=== PATIENT | male | born 1945 | race Caucasian/White ===

== ENCOUNTER 2021-10-02 16:11 | Outpatient (CLI) | payer BC, MEDICARE, SELFPAY ==
--- NOTE | ~2021-10-02 | US_ITS ---
EXAMINATION: US venous doppler LE RT DATE: 10/02/2021 16:46 INDICATION: Right lower limb pain. TECHNIQUE: Grayscale ultrasound images without and with compression and Doppler ultrasound images of the right lower extremity veins were obtained. COMPARISON: None. FINDINGS: The visualized portions of right common femoral vein, profunda (deep) femoral vein, femoral vein, pop liteal vein, peroneal veins, posterior tibial veins, and greater saphenous vein outflow are patent. T here is thrombus in a superficial vein in right posterior calf. IMPRESSION: 1. No deep venous thrombosis. 2. Thrombosis of a superficial vein in right posterior calf. Reviewed, dictated and finalized at location A. GE OPENER
== END 2021-10-02 16:12 | disposition home or self-care (01) ==
LOC: ANHIMG 16:19
PROVIDERS: PCP Family Medicine; Visit Provider Physician Assistant
DX: M79.661 Pain in right lower leg (principal); R60.9 Edema, unspecified; I82.811 Embolism and thrombosis of superficial veins of right lower extremity
CPT/HCPCS: 93971

== ENCOUNTER → 2022-12-08 12:24 | Outpatient (CLI) | payer BC, MEDICARE, SELFPAY ==
--- NOTE | ~2022-12-08 | XR_ITS ---
XR foot RT min 3V DATE: 12/08/2022 12:58 INDICATION: Right foot pain TECHNIQUE: 5 views COMPARISON: None FINDINGS: There is diffuse osteopenia. There is mild plantar and slight posterior calcaneal enthesopathy. There is mild polyarticular osteoarthritis including first metatarsophalangeal joint and some interph alangeal joints. No fracture or dislocation, periosteal reaction or bone destruction. There is anterior and posterior tibial artery and dorsalis pedis artery as well as some metatarsal ar alexander calcifications suggesting diabetes. IMPRESSION: Extensive arterial calcifications suggesting diabetes Osteopenia Polyarticular osteoarthritis Plantar and slight posterior calcaneal enthesopathy Reviewed, dictated and finalized at location B.
== END ==
PROVIDERS: PCP Family Medicine; Visit Provider Family Medicine
DX: M19.071 Primary osteoarthritis, right ankle and foot (principal); M85.871 Other specified disorders of bone density and structure, right ankle and foot; M77.31 Calcaneal spur, right foot
CPT/HCPCS: 73630

== ENCOUNTER → 2022-12-19 13:51 | Outpatient (CLI) | payer BC, MEDICARE, SELFPAY ==
--- NOTE | ~2022-12-19 | CT_ITS ---
EXAMINATION: CT abdomen pelvis w con DATE: 12/19/2022 15:01 INDICATION: Splenic disorder TECHNIQUE: Computed tomography (CT) of the abdomen and pelvis was performed with 100 CC Omnipaque 350 intravenous contrast. Automated exposure control and iterative reconstruction technique were employe d. Exam dose: 898.04 mGy-cm total exam DLP. COMPARISON: 05/13/2019 CT abdomen FINDINGS: The lung bases are clear. Normal heart size. No pericardial or pleural effusion. The liver, gallbladder, bile ducts, pancreas, pancreatic duct are normal. There is a 6 mm hypoattenuating lesion at the posterior aspect of the spleen, unchanged since 05/13/20 19. There are several stable splenules, not significant change since 05/13/2019. There is a 3.6 mm nonobstructing lower pole right renal calculus. There is a 2.5 mm nonobstructing lo wer pole left renal calculus. Another probable pinpoint nonobstructing left renal calculus may be pre sent. Diffuse small probable renal cysts are noted, too small to definitively characterize. Atherosclerotic calcification of the abdominal aorta, iliac and femoral arteries; no abdominal aortic aneurysm. No intraperitoneal or retroperitoneal or pelvic mass lesion or adenopathy or ascites. There is a suprapubic Akers catheter. The urinary bladder is evacuated. No evidence of appendicitis. No bowel obstruction, bowel wall thickening, pneumatosis or intraperiton eal free air. Prominent fat-containing abdominal hernia measuring up to 4.1 cm AP and transverse dimension. Bilateral fat-containing inguinal hernias. Diffuse idiopathic skeletal hyperostosis of the thoracic spine. Degenerative changes of the lumbar sp ine including prominent degenerative disc disease in the mid and lower lumbar area and prominent dege nerative changes of the apophyseal joints, with associated grade 1 anterolisthesis at L4-5. IMPRESSION: Splenules and stable approximately 5 mm splenic hypoattenuating lesion, not significantl y changed since 05/13/2019 Mild bilateral nonobstructive nephrolithiasis Occasional small probable cysts, too small to definitively characterize 4.1 cm fat-containing umbilical hernia Reviewed, dictated and finalized at Location A. Reviewed, dictated and finalized at location A. IMPRESSION: Splenules and stable approximately 5 mm splenic hypoattenuating le mac, not significantly changed since 05/13/2019 Mild bilateral nonobstructive nephrolithiasis Occasional small probable cysts, too small to definitively characterize 4.1 cm fat-containing umbilical hernia
[2022-12-19 14:58] LABS: Estimated Glomerular Filt Rate > 60
== END ==
PROVIDERS: PCP Family Medicine; Visit Provider Family Medicine
DX: D73.89 Other diseases of spleen (principal); N20.0 Calculus of kidney; K42.9 Umbilical hernia without obstruction or gangrene
CPT/HCPCS: 74177; Q9967

== ENCOUNTER → 2023-03-11 11:31 | Outpatient (CLI) | payer BC, MEDICARE, SELFPAY ==
--- NOTE | ~2023-03-11 | XR_ITS ---
Lumbosacral Spine: AP, oblique, and lateral views Clinical History: Pain Findings: The normal lordotic curve is maintained. 9 mm anterolisthesis of L4 over L5 is present.. Pr obable 7 mm anterolisthesis of L5 over S1. There is degenerative disc narrowing at 3-0, L3-L4, L4-L5, L5-S1. There is advanced facet arthropathy from L3 through S1. The sacroiliac joints are normally ou tlined. Impression: 9 mm anterolisthesis of L4 over L5. 7 mm anterolisthesis of L5 over S1. Moderate to advanced degenerative spondylosis from L3 through S1. Reviewed, dictated and finalized at location M. Impression: 9 mm anterolisthesis of L4 over L5. 7 mm anterolisthesis of L5 over S1. Moderate to advanced degenerative spondylosis from L3 through S1.
== END ==
PROVIDERS: PCP Family Medicine; Visit Provider Physician Assistant
DX: M47.896 Other spondylosis, lumbar region (principal)
CPT/HCPCS: 72110

== ENCOUNTER 2023-04-05 17:59 | Emergency (ER) | payer BC, MEDICARE, SELFPAY ==
--- NOTE | ~2023-04-05 | XR_ITS ---
XR_CERV2-3V_CR DATE: 04/05/2023 18:48 INDICATION: Left neck pain TECHNIQUE: AP, open-mouth, lateral views COMPARISON: None FINDINGS: C7 is not adequately demonstrated on the lateral view, resulting in an incomplete examinati on. Swimmer's view with demonstration of C7 and possibly a more penetrated lateral standard views are recommended. There is minimal anterolisthesis at C3-4, C4-5 and to a greater extent C5-6. No fracture or dislocation is evident. No prevertebral soft tissue swelling. Cervical interspaces appear well preserved. There is mild levoscoliosis of the cervical and upper thoracic spine. Diffuse idiopathic skeletal hyp erostosis of the thoracic spine. Osteopenia. IMPRESSION: Incomplete examination with inadequate demonstration of C7 on lateral view Minimal anterolisthesis at C3-4, C4-5 and to a greater extent C5-6; no fracture is evident Reviewed, dictated and finalized at Location A. Reviewed, dictated and finalized at location A. IMPRESSION: Incomplete examination with inadequate demonstration of C7 on later al view Minimal anterolisthesis at C3-4, C4-5 and to a greater extent C5-6; no fracture is evident
--- NOTE | ~2023-04-05 | XR_ITS ---
XR shoulder LT min 2V DATE: 04/05/2023 18:48 INDICATION: Left shoulder pain. No injury. TECHNIQUE: 4 views COMPARISON: None FINDINGS: Normal alignment at the acromioclavicular and glenohumeral joints. There is evidence of chr onic rotator cuff atrophy. There is mild spurring at the acromioclavicular joint. There is mild glenohumeral osteoarthritis. No fracture or dislocation, periosteal reaction or bone destruction is detected. Degenerative changes of the cervical spine Degenerative disc disease and degenerative change at the apophyseal joints. Dextroscoliosis and diffuse idiopathic skeletal hyperostosis of the thoracic spine. Osteopenia. IMPRESSION: Degenerative changes at the acromioclavicular and glenohumeral joints Left rotator cuff atrophy Diffuse idiopathic skeletal hyperostosis and extra scoliosis of the thoracic spine. Osteopenia Reviewed, dictated and finalized at location A. IMPRESSION: Degenerative changes at the acromioclavicular and glenohumeral join ts Left rotator cuff atrophy Diffuse idiopathic skeletal hyperostosis and extra scoliosis of the thoracic sp ine. Osteopenia
[2023-04-05 18:10] VITALS: BP 118/60; PULSE 73; RESP 18; TEMP 36.6; O2SAT 98
--- NOTE | 2023-04-05 18:27 | ED.EXTPRO ---
HPI - Extremity Problem General Chief complaint: Extremity Problem,Nontraumatic Stated complaint: Left Shoulder Pain Time Seen by Provider: 04/05/23 18:27 Source: patient Mode of arrival: ambulatory Limitations: no limitations History of Present Illness HPI Narrative: 77-year-old male presents with complaint of neck, left shoulder pain for approximately 5 days. Reports pain is to left side of neck and radiates down into left shoulder and left upper back. Denies injury. Reports history of torn rotator cuff that was not surgically repaired. has been getting cortisone injections with orthopedics which has been helping his pain. States his last injection was March 25. Reports that is not helping this time. States he has not slept the last 2 nights due to pain. Taking Aleve with no relief of pain. All systems reviewed and negative except as noted above. Related Data Home Medications Medication Instructions Recorded Confirmed aspirin 81 mg tablet,delayed 81 mg PO DAILY 09/25/20 03/11/23 release (Adult Aspirin Regimen) calcium carbonate 600 mg-vitamin cap PO 09/25/20 03/11/23 D3 12.5 mcg (500 unit) capsule (Calcium 600 with Vitamin D3) albuterol sulfate 90 mcg/actuation inhalation 04/05/23 aerosol inhaler Allergies Allergy/AdvReac Type Severity Reaction Status Date / Time No Known Allergies Allergy Verified 03/11/23 11:02 Review of Systems Review of Systems: CONSTITUTIONAL: Denies fever, chills, or sweats. EYES: Denies visual changes, redness, or discharge. ENT: Denies rhinorrhea, congestion, sore throat, or otalgia. CARDIOVASCULAR: Denies chest pain, palpitations, or edema. RESPIRATORY: Denies cough or dyspnea. GASTROINTESTINAL: Denies abdominal pain, nausea, vomiting, or diarrhea. GENITOURINARY: Denies dysuria or hematuria. SKIN: Denies rash or itching. MUSCULOSKELETAL: Denies back pain or myalgia. Reports pain to left side of neck, left shoulder. NEUROLOGIC: Denies headache, numbness, or weakness. PSYCHIATRIC: Denies anxiety or depression. All other systems reviewed are negative, except as documented in HPI. [facility] Past Medical History Medical History (Updated 04/05/23 @ 19:30 by Lizbet Ramirez NP) Basal cell carcinoma of skin Cardiomyopathy Constipation FH: radiation therapy HLD (hyperlipidemia) Hypertension Obesity (BMI 30-39.9) Prediabetes Prostate cancer Squamous cell skin cancer Umbilical hernia Surgical History Surgical History (Updated 03/11/23 @ 11:14 by Salina Brody PA-C) History of lumbar surgery History of prostate surgery History of total left knee replacement History of total right knee replacement (TKR) Family History Family History (Reviewed 03/11/23 @ 11:03 by Cassie Otero [facility]) Father Diabetes mellitus Malignant neoplasm of prostate Mother Diabetes mellitus Sibling Diabetes mellitus Social History Social History (Reviewed 03/11/23 @ 11:03 by Cassie Otero [facility]) Smoking packs per day: 0.5 Smoking cigarettes per day: 10.0 Years smoked: 10 Smoking pack-years: 5.00 Smoking status: Former smoker Tobacco type: cigarettes Second hand tobacco smoke exposure: Yes Smoking end date: 09/14/89 Alcohol intake: never Substance use: never Substance use type: does not use Lack of Transportation: No Lack of Food: Never True Current Housing: I Have Housing Concerned About Future Housing: No Difficulty Paying Gas/Electric Bills: No Difficulty Paying for Meds: No Currently Unemployed: No Education: High School Diploma/GED Difficulty w/ Childcare or Family Care: No Living arrangements: with family Occupation/Education: retired Gender identity (if verbalized by the patient): Male Sexual Orientation (if Verbalized by the Patient): Straight or Heterosexual Spiritual care concerns: No Agree to blood products: Yes Comments At time of signature, agree with nursing past medical, s
== END 2023-04-05 19:32 | disposition home or self-care (01) ==
PROVIDERS: Emergency Provider Nurse Practitioner Family; PCP Family Medicine
DX: M25.512 Pain in left shoulder (principal); S16.1XXA Strain of muscle, fascia and tendon at neck level, initial encounter; X58.XXXA Exposure to other specified factors, initial encounter; I42.9 Cardiomyopathy, unspecified; E78.5 Hyperlipidemia, unspecified; I10 Essential (primary) hypertension; E66.9 Obesity, unspecified; Z68.29 Body mass index [BMI] 29.0-29.9, adult; R73.03 Prediabetes; Z85.46 Personal history of malignant neoplasm of prostate; Z85.828 Personal history of other malignant neoplasm of skin; Z96.653 Presence of artificial knee joint, bilateral; Z87.891 Personal history of nicotine dependence; Z79.82 Long term (current) use of aspirin
CPT/HCPCS: 72040; 73030; 99213; G0463

== ENCOUNTER 2024-12-05 14:42 | Outpatient (CLI) | payer BC, MEDICARE, SELFPAY ==
--- NOTE | ~2024-12-05 | XR_ITS ---
XR chest 2V Ordering provider: Sultana Shook MD History: 79 years Male with . R07.9 - Chest pain, unspecified . Comparison: April 13, 2017 FINDINGS: MEDIASTINUM: The cardiac silhouette is not enlarged. LUNGS: No effusions or pneumothorax. Opacification in both lung bases more on the left side suggestiv e of atelectasis versus pneumonia. OTHER: No free air under the diaphragm. Degenerative changes of the spine. IMPRESSION: Bibasilar atelectasis versus pneumonia. Reviewed, dictated and finalized at location A.
--- NOTE | 2024-12-05 15:00 | ECG_ITS ---
Test Date: 2024-12-05 15:10:15 Measurements Intervals [place] Rate: 58 P: 62 MI: 187 QRS: 41 QRSD: 96 T: 61 QT: 418 QTc: 413 Interpretive Statements SINUS BRADYCARDIA WITH OCCASIONAL SUPRAVENTRICULAR PREMATURE COMPLEXES No previous ECG available for comparison Electronically Signed On 12-06-2024 15:39:33 CDT by Hiarm Elizabeth M.D.
--- OUTSIDE RECORDS SUMMARY | 2024-12-05 17:02 | XMS_ITS | Encounter Summary ---
Author Organization [facility] Address [address] [place] [address] Care Team Providers Care Card Filer Name Role Phone Leonidas Doran MD Primary Care Provider Encounter Details Date Type Department Care Team (Late st Contact Info) Description 08/22/2020 Lab Requisition [facility] DermPath Lab [address] [facility] [place] [address] Tessa Elena MD [address] [facility] [address] [place] [address] Social History Tobacco Use Types Packs/Day Years Used Date Smoking Tobacco: Former Smokeless Tobacco: Never Alcohol Use Standard Drinks/Week Comments Yes 0 (1 standard drink = 0.6 oz pur e alcohol) Sex and Gender Information Value Date Recorded Sex Assigned at Not on file Gender Identity Not on file Sexual Orientation Not on file documented as of this encounter Plan of Treatment Not on file documented as of this encounter Procedures Procedure Name Priority Date/Time Associated Diagnosis Comments DERMATOPATHOLOGY Routine 08/21/2020 12:0 0 AM WELFARE SUPERVISOR documented in this encounter Results * DERMATOPATHOLOGY (08/21/2020 12:00 AM WELFARE SUPERVISOR) Case Report Dermatopathology Report Case: [id number] Authorizing Provider: Tessa Elena MD Collected: 08/21/2020 12:00 AM Ordering Location: [facility] Lab Received: 08/22/2020 06:49 AM Pathologist: Parrish Collins MD Specimen: Skin, left conchal 0 3:37 PM WELFARE SUPERVISOR DERMATOPATHOLOGY LABORATORY Final Diagnosis Specimen A. SKIN, left conchal: SQUAMOUS CELL CARCINOMA, WELL DIFFERENTIATED (C44.229) (see microscopic description) 0 3:37 PM WELFARE SUPERVISOR DERMATOPATHOLOGY LABORATORY Clinical History R/O BCC, irritated. 0 3:37 PM WELFARE SUPERVISOR DERMATOPATHOLOGY LABORATORY Gross Description Specimen A: Received is one formalin filled container labeled with the patient's name and designated left conchal. The specimen consists of a shave measuring [id number]. Jar 0. 0 3:37 PM WELFARE SUPERVISOR DERMATOPATHOLOGY LABORATORY Microscopic Description Specimen A. SKIN, left conchal: Arising in the epidermis and extending into the dermis there are irregularly shaped aggregates of keratinocytes showing evidence of premature cornification. Additional deeper sections were obtained and reviewed. 0 3:37 PM WELFARE SUPERVISOR DERMATOPATHOLOGY LABORATORY Disclaimer An external and internal positive and negative controls are appropriate for the histochemical, immunohistochemical and immunofluorescence stain(s) in this case (if any), except where stated explicitly. The performance characteristics of the stain(s) cited in this report were developed and its performance characteristic determined by the Dermatopathology Laboratory at [facility], directed by Dr. Radha Collins. These tests need not be, and therefore are not, approved by the [place] Food and Drug Administration. The tests are used for clinical purposes. Billing Codes Specimen Charges Stain Charges 17320 1 0 3:37 PM WELFARE SUPERVISOR DERMATOPATHOLOGY LABORATORY Embedded Images 0 3:37 PM WELFARE SUPERVISOR DERMATOPATHOLOGY LABORATORY Pathology/Cytolog y TISSUE SPECIMEN FROM SKIN / Unknown 08/21/2020 08/22/2020 6:49 AM WELFARE SUPERVISOR Tessa Elena MD LAB - PATHOLOGY/CYT OLOGY ORDERABLES DERMATOPATHOLOGY LABORATORY [facility] - Department of Dermatology [facility] Medicine [address] [place] [address], [address] [place] [address], [facility] [phone] documented in this encounter Visit Diagnoses Not on filedocumented in this encounter Care Teams Card Filer Relationship Specialty Start Date End Date Leonidas Doran MD [address] [place] [address] PCP - General 10/20/11 documented as of this encounter
--- OUTSIDE RECORDS SUMMARY | 2024-12-05 17:02 | XMS_ITS | Clinical Summary ---
Author Organization [facility] Address [address] [place] [address] Care Team Providers Care Paper Plate Machine Tender Name Role Phone Sultana Shook MD Primary Care Provider [phone] Social History Tobacco Use Types Packs/Day Years Used Date Smoking Tobacco: Never Assessed Sex and Gender Information Value Date Recorded Sex Assigned at Not on file Legal Sex Male 7:43 PM CDT Gender Identity Not on file Sexual Orientation Not on file Plan of Treatment Health Maintenance Due Date Last Done Comments DTaP, Tdap and Td Vaccines ( 1 - Tdap) 1962 Zoster Vaccines (1 of 2) 1993 Annual Medicare Wellness Visit 2008 Pneumococcal Vaccine: 65+ Ye ars (1 of 1 - PCV) 2008 RSV Immunization or 60+ Years (1 - 1-dose 75+ series) 2018 COVID-19 Vaccine (2023-2 5 season) 2024 Influenza Adult (#1) 2024 Meningococcal B Vaccine Aged Out No l onger eligible based on patient's age to complete this topic Meningococcal Vaccine Aged Out No ann mehreen eligible based on patient's age to complete this topic RSV Immunizations Under 20 Months Aged Out No longer eligible based on patient's age to complete this topic Insurance MEDICARE [facility] Care Teams Paper Plate Machine Tender Relationship Specialty Start Date End Date Sultana Shook MD [address] [place] [address] PCP - General FAMILY PRACTICE 04/21/23
--- OUTSIDE RECORDS SUMMARY | 2024-12-05 17:02 | XMS_ITS | Clinical Summary ---
Author Organization [facility] Address [address] [facility] [place] [address] Care Team Providers Care Integrated Circuits Inspector Name Role Phone Leonidas Doran MD Primary Care Provider Source Comments [facility],non-owned Affiliates and Associated Physician Practices is amultiple site organization consisting of ambulatory clinics and hospital sitesin [place], [place], [place] and [place]. This disclosure is being madepursuant to the Care Everywhere program and may not contain all information available regarding this patient. Last updated 18.[facility] Active Problems Problem Noted Date Diagnosed Date Personal history of other malignant neoplasm of skin 12/05/2011 Family History Medical History Relation Name Comments Diabetes Father Heart Failure Father Diabetes Mother Heart Failure Mother Hypertension Mother Relation Name Status Comments Father Mother Social History Tobacco Use Types Packs/Day Years Used Date Smoking Tobacco: Former Smokeless Tobacco: Never Alcohol Use Standard Drinks/Week Comments Yes 0 (1 standard drink = 0.6 oz pur e alcohol) Sex and Gender Information Value Date Recorded Sex Assigned at Not on file Gender Identity Not on file Sexual Orientation Not on file Last Filed Vital Signs Vital Sign Reading Time Taken Comments Blood Pressure 111/67 03/25/2016 1:54 PM CDT Pulse 70 03/25/2016 1:54 PM CDT Temperature - - Respiratory Rate - - Oxygen Saturation 67% 03/25/2016 1:54 PM CDT Inhaled Oxygen Concentration - - Weight 104.3 kg (230 lb) 03/25/2016 1:25 PM CDT Height 182.9 cm (6') 03/25/2016 1:25 PM CDT Body Mass Index 31.19 03/25/2016 1:25 PM CDT Plan of Treatment Health Maintenance Due Date Last Done Comments MEDICARE AWV 12 MONTHS 1945 DTAP/TDAP/TD VACCINES (1 - Tdap) 1962 PNEUMOCOCCAL VACCINE 50+ (1 of 1 - PCV) 1993 ZOSTER VACCINE (1 of 2) 1993 Respiratory Syncytial Virus (RSV) Vaccine Pt: or over 60 yrs (1 - 1-dose 75+ series) 2018 COVID-19 VACCINE (1 - 2023-2 5 season) 2024 INFLUENZA VACCINE (#1) 2024 DEPRESSION SCREENING 09/14/2024 HEPATITIS B VACCINE Aged Out No longe r eligible based on patient's age to complete this topic HIB VACCINE Aged Out No longer eligi ble based on patient's age to complete this topic HPV VACCINE Aged Out No longer eligi ble based on patient's age to complete this topic MENINGOCOCCAL (Group B) VACC INE SHARED DECISION-MAKING Aged Out No longer eligibl e based on patient's age to complete this topic MENINGOCOCCAL GROUPS A/C/Y/W VACCINE Aged Out No longer eligible b ased on patient's age to complete this topic Care Teams Integrated Circuits Inspector Relationship Specialty Start Date End Date Leonidas Doran MD [address] [place] [id number] PCP - General 10/20/11
--- OUTSIDE RECORDS SUMMARY | 2024-12-05 17:02 | XMS_ITS | Encounter Summary ---
Author Organization [facility] Address [address] [place] [address] Care Team Providers Care Mat Gauger Name Role Phone Leonidas Doran MD Primary Care Provider Encounter Details Date Type Department Care Team (Late st Contact Info) Description 11/19/2023 Lab Requisition [facility] - DermPath Lab [address] [facility] [place] [address] Tessa Elena MD [address] [facility] [address] [place] [address] Social History Tobacco Use Types Packs/Day Years [...] Priority Date/Time Associated Diagnosis Comments DERMATOPATHOLOGY Routine 11/19/2023 10:5 6 AM SKID WRAPPER documented in this encounter Results * DERMATOPATHOLOGY (11/19/2023 10:56 AM SKID WRAPPER) Case Report Dermatopathology Report Case: [id number] Authorizing Provider: Tessa Elena MD Collected: 11/19/2023 10:56 AM Ordering Location: [facility] - Received: 11/20/2023 01:05 PM DermPath Lab Pathologist: Freida Leach MD Specimens: A) - Skin, left samaritan B) - Skin, right ant scalp 1:19 PM [facility] DERMATOPATHOLOGY LABORATORY Final Diagnosis Specimen A. SKIN, left samaritan: SQUAMOUS CELL CARCINOMA IN SITU, PRESENT AT THE BASE OF THE SPECIMEN (D04.39) (see microscopic description and comment) Specimen B. SKIN, right ant scalp: SQUAMOUS CELL CARCINOMA, WELL DIFFERENTIATED (C44.42) 1:19 PM [facility] DERMATOPATHOLOGY LABORATORY Clinical History A-B: Growing R/O SCC 1:19 PM [facility] DERMATOPATHOLOGY LABORATORY Gross Description Specimen A: Received is one formalin filled container labeled with the patient's name and designated left samaritan. The specimen consists of a two pieces shave biopsy measuring 5x5x1, 5x5x1 mm. Jar 0. Specimen B: Received is one formalin filled container labeled with the patient's name and designated right ant scalp. The specimen consists of a shave biopsy measuring 5x5x2 mm. Jar 0. 1:19 PM [facility] DERMATOPATHOLOGY LABORATORY Microscopic Description Specimen A. SKIN, left samaritan: The epidermis shows parakeratosis, full thickness disorderly maturation of keratinocytes, mitoses at different levels, and dyskeratotic cells. The lesion extends to the base of the biopsy. COMMENT: An invasive squamous cell carcinoma cannot be ruled out. Specimen B. SKIN, right ant scalp: Arising in the epidermis and extending into the dermis there are irregularly shaped aggregates of keratinocytes showing evidence of premature cornification. 1:19 PM [facility] DERMATOPATHOLOGY LABORATORY Disclaimer An external and internal positive and negative controls are appropriate for the histochemical, immunohistochemical and immunofluorescence stain(s) in this case (if any), except where stated explicitly. The performance characteristics of the stain(s) cited in this report were developed and its performance characteristic determined by the Dermatopathology Laboratory at [facility], directed by Dr. Radha Collins. These tests need not be, and therefore are not, approved by the [place] Food and Drug Administration. The tests are used for clinical purposes. Billing Codes Specimen Charges Stain Charges 05906 58067 1 1 1:19 PM T DERMATOPATHOLOGY LABORATORY Embedded Images 1:19 PM CDT DERMATOPATHOLOGY LABORATORY Pathology/Cytology TISSUE SPECIMEN FROM SKIN / Unknown 11/19/2023 10:56 AM SKID WRAPPER 11/20/2023 1:05 PM SKID WRAPPER Miscellaneous samples (specimen) TISSUE SPECIMEN FROM SKIN / Unknown 11/19/2023 10:56 AM SKID WRAPPER 11/20/2023 1:05 PM SKID WRAPPER Tessa Elena MD LAB - PATHOLOGY/CYT OLOGY ORDERABLES DERMATOPATHOLOGY LABORATORY [facility] - Department of Dermatology [facility] [address] [place] [address], [address] [phone] documented in this encounter Visit Diagnoses Not on filedocumented in this encounter Care Teams Mat Gauger Relationship Specialty Start Date End Date Leonidas Doran MD [address] [place] [address] PCP - General 10/20/11 documented as of this encounter
== END 2024-12-05 14:43 | disposition home or self-care (01) ==
PROVIDERS: PCP Family Medicine; Visit Provider Family Medicine
DX: R07.9 Chest pain, unspecified (principal); R06.00 Dyspnea, unspecified; R91.8 Other nonspecific abnormal finding of lung field
CPT/HCPCS: 71046; 93005

== ENCOUNTER 2024-12-21 15:51 | Inpatient (IN) | payer BC, MEDICARE, SELFPAY ==
[2024-12-21] VITALS (8 sets, daily range): BP systolic 114–130; BP diastolic 51–62; PULSE 63–75; RESP 14–19; TEMP 36.4–36.8; O2SAT 94–100
--- NOTE | ~2024-12-21 | US_ITS ---
EXAMINATION: US soft tissue head and neck DATE: 12/22/2024 14:59 INDICATION: Large right thyroid nodule TECHNIQUE: Multiple ultrasound images of the thyroid were obtained. COMPARISON: Ultrasound dated 07/27/[address] dated 12/31/2024 FINDINGS: The right thyroid lobe measures 7.4 x 3.6 x 3.1 cm. The left thyroid lobe measures 5.5 x 2.1 x 2.9 c m. 8 mm benign cystic TI RADS 1 nodule in the right thyroid lobe. 4.5 x 3.3 x 2.8 solid hypoechoic n odule which is wider than tall with smooth margins and without echogenic foci in the right thyroid lo be. (TI-RADS 4, moderately suspicious , FNA if >=1.5 cm, annual followup is >=1 cm). On the cine imag ing this appears to be comprised of 2 separate nodules are more clearly delineated on the prior study at which time they measured 4.8 x 3.1 x 2.7 cm. Additional 2.3 cm solid isoechoic nodule which is wi william than tall with ill-defined margins in the left thyroid lobe. (TI-RADS 3, mildly suspicious , FNA if >=2.5 cm, annual followup is >=1.5 cm). IMPRESSION: 1. Multinodular goiter. No significant interval change in a 4.5 cm TI-RADS 4 mass at the right thyroi d lobe which when correlated with prior imaging appears to be comprised of 2 separate nodules and whi ch is unchanged. Given patient's age and over 12 years of stability, biopsy is likely unnecessary. Reviewed, dictated and finalized at location B. IMPRESSION: 1. Multinodular goiter. No significant interval change in a 4.5 cm TI-RADS 4 ma ss at the right thyroid lobe which when correlated with prior imaging appears t o be comprised of 2 separate nodules and which is unchanged. Given patient's ag e and over 12 years of stability, biopsy is likely unnecessary.
--- NOTE | ~2024-12-21 | XR_ITS ---
XR chest 2V Ordering provider: Teresa Zaidi MD History: 79 years Male with . shortness of breath . Comparison: December 05, 2024 FINDINGS: MEDIASTINUM: The cardiac silhouette is not enlarged. LUNGS: No infiltrates, effusions or pneumothorax. OTHER: No free air under the diaphragm. Degenerative changes of the spine. IMPRESSION: No acute cardiopulmonary pathology. Reviewed, dictated and finalized at location A.
--- NOTE | ~2024-12-21 | CT_ITS ---
CTA chest PE protocol Ordering provider: Rosana Toro PA-C History: 79 years Male with . chest tightness, radiates to back . Comparison: July 23 2012 Technique: CT angiogram chest was performed following timed intravenous injection of contrast. Thin s lice axial images and reformatted coronal images were obtained. Three dimensional reformatted images of the chest were also obtained using a [employer] workstation. . Automated exposure control and iterati ve reconstruction technique were employed. The dose-length product was 715.13 mGy-cm. 100 mL Omnipaqu e 350 was given IV. Findings: PULMONARY ARTERIES: No pulmonary embolus. VISUALIZED THORACIC INLET: Large nodule in the right lobe of the thyroid. Ultrasound evaluation advis ed. MEDIASTINUM: Aorta/coronary arteries: Mild atheromatous disease. Heart/other: The heart is not enlarged. Lymph nodes: No mediastinal or hilar adenopathy. LUNGS: No pulmonary nodules or masses. No infiltrates or effusions. No pneumothorax. VISUALIZED UPPER ABDOMEN: the visualized upper abdomen is normal. MUSCULOSKELETAL: Soft tissues: The superficial soft tissues are normal. Bones: Age appropriate degenerative changes of the spine. Bifid spinous process of C7. IMPRESSION: 1. No pulmonary embolism. 2. No acute cardiopulmonary. 3. Right thyroid nodule. Ultrasound evaluation advised. Reviewed, dictated and finalized at location A.
--- NOTE | ~2024-12-21 | NM_ITS ---
EXAMINATION: NM taz stress w perfusion DATE: 12/23/2024 10:10 INDICATION: Chest pain TECHNIQUE: Rest images were obtained following intravenous administration of 10.6 mCi Tc99m tetrofosm in (Myoview). The patient was infused intravenously with Lexiscan (Regadenoson). Then, 34.4 mCi Tc99m tetrofosmin (Myoview) was administered intravenously, and stress images were obtained. Data was kyle nstructed into short axis and horizontal and vertical long axis SPECT images. Gated SPECT images were also obtained. COMPARISON: None. FINDINGS: There is no definite reversible or fixed perfusion abnormality to suggest ischemia or infar ction. There is normal left ventricular chamber size, wall motion and ejection fraction. Left ventr icular ejection fraction measures 70%. IMPRESSION: 1. Normal myocardial perfusion at rest and during stress. 2. Left ventricular ejection fraction measuring 70%. Reviewed, dictated and finalized at location B.
--- NOTE | 2024-12-21 16:18 | ECG_ITS ---
Test Date: 2024-12-21 16:28:28 Measurements Intervals Jolon Rate: 71 P: 7 MI: 166 QRS: -13 QRSD: 95 T: 50 QT: 397 QTc: 432 Interpretive Statements SINUS RHYTHM WITH OCCASIONAL VENTRICULAR PREMATURE COMPLEXES LOW QRS VOLTAGE IN PRECORDIAL LEADS BORDERLINE ECG Compared to ECG 12/05/2024 15:10:15 HEART RATE HAS INCREASED Electronically Signed On 12-21-2024 18:12:29 CDT by Tam Romero D.O.
[2024-12-21 16:27] LABS: Basophils Absolute Auto 0.1 K/mm3 (0.0-0.1); Basophils Percent Auto 0.8 % (0.2-1.2); Eosinophils Absolute Auto 0.2 K/mm3 (0-0.3); Eosinophils Percent Auto 1.3 % (0-4.4); Hematocrit 40.1 % (42.0-52.0); Hemoglobin 13.2 g/dL (14.0-18.0); Immature Granulocyte Absolute 0.16 K/mm3 (0.00-0.031); Immature Granulocyte Percent A 1.4 % (0-0.5); Lymphocytes Percent Auto 24.5 % (18.3-44.2); Mean Corpuscular HGB Conc 32.9 g/dl (32-36); Mean Corpuscular Hemoglobin 28.8 pg (26-34); Mean Corpuscular Volume 87.6 fl (80-100); Monocytes Percent Auto 8.6 % (2.6-8.5); Neutrophils Absolute Auto 7.5 K/mm3 (1.3-6.7); Neutrophils Percent Auto 63.4 % (45.5-73.1); Platelet Count Result 274 k/mm3 (150-375); Red Blood Count 4.58 M/mm3 (4.6-6.20); Red Cell Distribution Width 14.3 % (11.5-14.5); White Blood Count 11.8 K/mm3 (4.5-10.0)
[2024-12-21 16:38] LABS: Alanine Aminotransferase 20 U/L (6-50); Albumin Level 4.3 g/dL (3.5-5.1); Alkaline Phosphatase 47 U/L (38-126); Anion Gap 11 mmol/L (4-12); Aspartate Amino Transferase 30 U/L (17-59); Bilirubin,Total 0.6 mg/dL (0.2-1.3); Blood Urea Nitrogen 52 mg/dL (9-20); Calcium 9.8 mg/dL (8.4-10.2); Carbon Dioxide 19 mmol/L (22-30); Chloride 103 mmol/L (98-107); Estimated CRCL calculation 40 ml/min; Estimated Glomerular Filt Rate 49; Glucose 92 mg/dL (65-110); Potassium 4.9 mmol/L (3.4-5.0); Sodium 133 mmol/L (137-145)
--- OUTSIDE RECORDS SUMMARY | 2024-12-21 17:00 | XMS_ITS | Encounter Summary ---
Author Organization [facility] Address [address] [place] [address] Care Team Providers Care Knitting Machine Operator Name Role Phone Leonidas Doran MD Primary Care Provider Encounter Details Date Type Department Care Team (Late st Contact Info) Description 08/22/2020 Lab Requisition [facility] [address], [place] [address] Tessa Elena MD [address] [facility] [address] [place] [address] Social History Tobacco Use Types Packs/Day Years [...] Comments DERMATOPATHOLOGY Routine 08/21/2020 12:0 0 AM GREEN MARKETING ANALYST documented in this encounter Results * DERMATOPATHOLOGY (08/21/2020 12:00 AM GREEN MARKETING ANALYST) Case Report Dermatopathology Report Case: [id number] Authorizing Provider: Tessa Elena MD Collected: 08/21/2020 12:00 AM Ordering Location: [facility] Received: 08/22/2020 06:49 AM Pathologist: Parrish Collins MD Specimen: Skin, left conchal 0 3:37 PM GREEN MARKETING ANALYST DERMATOPATHOLOGY LABORATORY Final Diagnosis Specimen A. 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 0 3:37 PM GREEN MARKETING ANALYST DERMATOPATHOLOGY LABORATORY Gross Description Specimen A: Received is one formalin filled container labeled with the patient's name and designated left conchal. The specimen consists of a shave measuring [id number]. Jar 0. 0 3:37 PM GREEN MARKETING ANALYST DERMATOPATHOLOGY LABORATORY Microscopic Description Specimen A. SKIN, left conchal: Arising in the epidermis and extending into the dermis there are irregularly shaped aggregates of keratinocytes showing evidence of premature cornification. Additional deeper sections were obtained and reviewed. 0 3:37 PM GREEN MARKETING ANALYST DERMATOPATHOLOGY LABORATORY Disclaimer An external and internal positive and negative controls are appropriate for the histochemical, immunohistochemical and immunofluorescence stain(s) in this case (if any), except where stated explicitly. The performance characteristics of the stain(s) cited in this report were developed and its performance characteristic determined by the Dermatopathology Laboratory at [facility], directed by Dr. Radha Collins. These tests need not be, and therefore are not, approved by the [place] Food and Drug Administration. The tests are used for clinical purposes. Billing Codes Specimen Charges Stain Charges 11339 1 0 3:37 PM GREEN MARKETING ANALYST DERMATOPATHOLOGY LABORATORY Embedded Images 0 3:37 PM GREEN MARKETING ANALYST DERMATOPATHOLOGY LABORATORY Pathology/Cytolog y TISSUE SPECIMEN FROM SKIN / Unknown 08/21/2020 08/22/2020 6:49 AM GREEN MARKETING ANALYST Tessa Elena MD LAB - PATHOLOGY/CYT OLOGY ORDERABLES DERMATOPATHOLOGY LABORATORY [facility] - Department of Dermatology Formerly [facility] Medicine [address] [place] [address], [address] [place] [address], [facility] [phone] documented in this encounter Visit Diagnoses Not on filedocumented in this encounter Care Teams Knitting Machine Operator Relationship Specialty Start Date End Date Leonidas Doran MD [address] [place] [address] PCP - General 10/20/11 documented as of this encounter
--- OUTSIDE RECORDS SUMMARY | 2024-12-21 17:00 | XMS_ITS | Clinical Summary ---
Author Organization [facility] Address [address] [place] [id number] Care Team Providers Care Landscaping Crew Leader Name Role Phone Sultana Shook MD Primary Care Provider [phone] Social History Tobacco Use Types Packs/Day Years [...] - 1-dose 75+ series) 2018 COVID-19 Vaccine ( - 2023-2 5 season) 2024 Meningococcal B Vaccine Aged Out No l onger eligible based on patient's age to complete this topic Meningococcal Vaccine Aged Out No ann mehreen eligible based on patient's age to complete this topic RSV Immunizations Under 20 Months Aged Out No longer eligible based on patient's age to complete this topic Insurance [facility] Care Teams Landscaping Crew Leader Relationship Specialty Start Date End Date Sultana Shook MD [address] [place] [address] PCP - General FAMILY PRACTICE 04/21/23
--- OUTSIDE RECORDS SUMMARY | 2024-12-21 17:00 | XMS_ITS | Clinical Summary ---
Author Organization [facility] [place] Address [address] [place] [address] Care Team Providers Care Salt Washer Harvesting Station Name Role Phone Sultana Shook MD Primary Care Provider Allergies No known active allergies Medications aspirin 81 mg tablet Active docusate calcium (STOOL SOFTENER, DOCUSATE ALEC,) 240 mg capsuleIndications :constipation Take 1 capsule (240 mg total) by mouth 2 (two) times a day as needed Active lisinopril (PRINIVIL,ZESTRIL) 10 mg tablet Take 1 tablet (10 mg total) by mouth daily Active carvedilol (COREG) 6.25 mg tablet TK 1 T PO BID 1 9 Active omeprazole (PriLOSEC) 20 mg capsule TK 1 C PO QD PRN 1 9 Active ofloxacin (OCUFLOX) 0.3 % ophthalmic solution INSTILL 1 DROP IN AFFECTED EYE(S) THREE TIMES DAILY STARTING 2 DAYS BEFORE SURGERY 1 Active prednisoLONE acetate (PRED FORTE) 1 % ophthalmic suspension SHAKE LIQUID AND INSTILL 1 DROP SURGICAL EYE THREE TIMES DAILY BEGINNING AFTER SURGERY 1 Active ketorolac (ACULAR) 0.5 % ophthalmic solution 1 Active cyclobenzaprine (FLEXERIL) 10 mg tablet Take 1 tablet (10 mg total) by mouth 2 (two) times a day as needed for muscle spasms 20 tablet 3 Active lidocaine (LIDODERM) 5 % Apply 1 patch topically daily Remove after 12 hours (need 12 hour patch free period). 10 patch 3 Active traMADoL (ULTRAM) 50 mg tabletIndications: Lumbar radiculopathy Take 1 tablet (50 mg total) by mouth 2 (two) times a day as needed for pain 30 tablet 3 Active LORazepam (ATIVAN) 0.5 mg tabletIndications: Lumbar radiculopathy TAKE ONE TAB ONE HOUR BEFORE EXAM, MAY REPEAT RIGHT BEFORE 2 tablet 3 Active HYDROcodone-acetam inophen (NORCO) 5-325 mg per tabletIndications: Pain Take 1-2 tablets by mouth every 6 (six) hours as needed for pain 30 tablet 3 Active Hospital, Clinic, or Other Facility Administered Medication Ordered Dose Route Frequency Start Date End Date Status leuprolide acetate (6 month) (LUPRON) intramuscular injection syringe kit 45 mgIndications:Age-rel ated osteoporosis without current pathological fracture 45 mg IM Once for Clinic-Administere d Medication 07/18/2024 Active Active Problems Problem Noted Date Diagnosed Date Shoulder joint pain 07/16/2021 Impingement syndrome of left shoulder 05/31/2021 Impingement syndrome of right shoulder 1 Pes anserinus bursitis of left knee 05/31/2021 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 Urinary retention 05/11/2018 Assessment & Plan (03/12/2021 12:12 PM CDT): Catheter Change The appearance of the urine in the catheter bag is yellow. 40 mL normal saline instilled into the catheter prior to removal. 16 Fr latex suprapubic catheter discontinued without problem. Balloon completely deflated and appears intact. Using sterile technique, new 16 Fr latex suprapubic catheter was placed. Urine return was noted. Balloon was inflated with 10 cc bacteriostatic water. Patient was instructed to return in 4 weeks for catheter exchange. Patient was discharged from the clinic and instructed on good fluid intake, cautioned regarding signs and symptoms of UTI and instructed to call with any questions or problems. Presence of suprapubic catheter 10/23/2017 Lumbar radiculopathy 10/14/2013 Urinary tract infection 04/28/2012 Erectile dysfunction of nonorganic origin 2011 Personal history of other malignant neoplasm of skin 12/05/2011 Encounters Date Type Department Care Team Description 12/16/2024 1:40 PM CDT Office Visit [facility] Surgery [address] [place] [id number] Retention of urine (Primary Dx) 12/06/2024 Telephone [facility] Medical [facility] Cardiology [address] [place] [address] Sultana Shook MD 10/26/2024 10:30 AM DIRECTOR OF PHOTOGRAPHY Office Visit [facility] Orthopedics and Sports Medicine [address] [place] [address] [address] [place] [address] Kirk Davalos PA Impingement syndrome of right shoulder (Primary Dx); Impingement syndrome of left shoulder; Pes anserinus bursitis of left knee 10/21/2024 1:00 PM DIRECTOR OF PHOTOGRAPHY Office Visit [facility] Surgery [facility] [facility] [address] [place] [phone] Urinary retention (Primary Dx) from Last 3 Months Immunizations Immunization Administration Dates Next Due Influenza, Quad, Adjuvantated, Intramuscular Moderna SARS-CoV-2 Monovalent Vaccination (12+ Y RS) 12/08/2020,11/01/2020 Surgical History Surgery Date Site/Laterality Comments TOTAL KNEE ARTHROPLASTY 09/14/1998 - 09/13/1999 Bilatera l JOINT REPLACEMENT FL FLUORO GUIDED LUMBAR PUNCTURE 08/18/2023 Right [place] FLUORO GUIDED LUMBAR PUNCTURE 09/29/2023 Right Medical History Medical History Date Comments Hx Other Medical 2007 Prostate Cancer - RT & homone therapy Other retention of urine Acute u rinary retention - (Added by TW Conv) Malignant neoplasm of skin Skin cancer - squamous cell carcinoma removal on forehead 12/05/11 (Added by TW Conv) Prostate cancer (HCC) radiation/ freezing per patient Osteoarthritis Family History Medical History Relation Name Comments Heart disease Father heart disease; Cause of : heart disease Other Mother natural causes; Cause of : natural causes Arthritis Son Blood Clot Son Diabetes Son Heart disease Son Relation Name Status Comments Father (Age 77) Mother (Age 93) Son Social History Tobacco Use Types Packs/Day Years Used Date Smoking Tobacco: Former Alcohol Use Standard Drinks/Week Comments Yes 0 (1 standard drink = 0.6 oz pur e alcohol) Personal Safety Answer Date Recorded Have you ever been in or are you currently in a harmful physical or emotional relationship or is someone making you feel afraid or unsafe? Denies 07/20/2023 Sex and Gender Information Value Date Recorded Sex Assigned at Not on file Legal Sex Male 9:51 AM DIRECTOR OF PHOTOGRAPHY Gender Identity Not on file Sexual Orientation Not on file Occupation Industry Job Start Date Job End Date Retired Not on file Not on file Not on file Obstetrics History Last Filed Vital Signs Vital Sign Reading Time Taken Comments Blood Pressure 125/69 07/21/2023 2:00 AM DIRECTOR OF PHOTOGRAPHY Pulse 68 07/21/2023 2:00 AM DIRECTOR OF PHOTOGRAPHY Temperature 36.4 C (97.6 F) 07/20/2023 3:07 PM DIRECTOR OF PHOTOGRAPHY Respiratory Rate 18 07/21/2023 2:00 AM DIRECTOR OF PHOTOGRAPHY Oxygen Saturation 96% 07/21/2023 2:00 AM DIRECTOR OF PHOTOGRAPHY Inhaled Oxygen Concentration - - Weight 99.8 kg (220 lb) 10/26/2024 10:08 AM DIRECTOR OF PHOTOGRAPHY Height 182.9 cm (6') 10/26/2024 10:08 AM DIRECTOR OF PHOTOGRAPHY Body Mass Index 29.84 10/26/2024 10:08 AM DIRECTOR OF PHOTOGRAPHY Plan of Treatment Health Maintenance Due Date Last Done Comments Depression Screening 1943 Fall Risk Assessment 1945 DTaP/Tdap/Td Vaccine (1 - Tdap) 1954 Hepatitis B Screening 1961 Pneumococcal vaccine 65+ (1 of 2 - PCV) 1962 Zoster Vaccine (1 of 2) 1962 Well Visit 65+ 2008 Covid-19 Vaccine (3 - Moderna risk series) 01/05/2021 12/08/2020, 11/01/2020 Influenza Vaccine (Season Ended) 2025 06/27/20 Abdominal Aortic Aneurysm (AAA) Screen Completed Procedures Procedure Name Priority Date/Time Associated Diagnosis Comments ND ARTHROCENTESIS ASPIR&/INJ MAJOR JT/BURSA W/O US Routine 10/26/2024 10:30 AM DIRECTOR OF PHOTOGRAPHY Pes anserinus bursitis of left knee ND ARTHROCENTESIS ASPIR&/INJ MAJOR JT/BURSA W/O US Routine 10/26/2024 10:30 AM DIRECTOR OF PHOTOGRAPHY Impingement syndrome of right shoulder Impingement syndrome of left shoulder CT ABDOMEN PELVIS W CONTRAST Routine 10/29/2012 12:40 PM DIRECTOR OF PHOTOGRAPHY from Last 3 Months or Most Recently Relevant to Health Maintenance Results * ND ARTHROCENTESIS ASPIR&/INJ MAJOR JT/BURSA W/O US (10/26/2024 10:30 AM DIRECTOR OF PHOTOGRAPHY) Narrative Kirk Davalos PA - 10/26/2024 10:30 AM DIRECTOR OF PHOTOGRAPHY Kirk Davalos PA 10/26/2024 10:30 AM Large Joint (Hip, Knee, Shoulder) Injection: L pes anserine bursa Performed by: Kirk Davalos PA Authorized by: Kirk Davalos PA Large Joint Injection/Aspiration: Consent Given by: Patient Verbal consent obtained: Yes Supporting Documentation: Indications: Pain Procedure Details: Location: Knee Site: L pes anserine bursa Needle Size: 22 G Ultrasound guided: No Medications Left Large Joint Injection: 1 mL lidocaine 10 mg/mL (1 %); 40 mg triamcinolone 40 mg/mL Patient tolerance: Patient tolerated the procedure well with no immediate complications Kirk MELARA IN CLINIC/BEDSIDE ORDERAB LES Final Result * ND ARTHROCENTESIS ASPIR&/INJ MAJOR JT/BURSA W/O US (10/26/2024 10:30 AM DIRECTOR OF PHOTOGRAPHY) Narrative Kirk Davalos PA - 10/26/2024 10:30 AM DIRECTOR OF PHOTOGRAPHY Kirk Davalos PA 10/26/2024 10:30 AM Large Joint (Hip, Knee, Shoulder) Injection: bilateral subacromial bursa Performed by: Kirk Davalos PA Authorized by: Davalos, Rony., PA Large Joint Injection/Aspiration: Consent Given by: Patient Verbal consent obtained: Yes Supporting Documentation: Indications: Pain Procedure Details: Location: Shoulder Site: Bilateral subacromial bursa Prep: patient was prepped using a clean technique Needle Size: 22 G Ultrasound guided: No Medications Right Large Joint Injection: 1 mL lidocaine 10 mg/mL (1 %); 40 mg triamcinolone 40 mg/mL Medications Left Large Joint Injection: 1 mL lidocaine 10 mg/mL (1 %); 40 mg triamcinolone 40 mg/mL Patient tolerance: Patient tolerated the procedure well with no immediate complications us Kirk MELARA IN CLINIC/BEDSIDE ORDERAB LES Final Result * CT Abdomen Pelvis W Contrast (10/29/2012 12:40 PM DIRECTOR OF PHOTOGRAPHY) Anatomical Region Laterality Modality Body N/A Computed Tomogra phy 10/29/2012 12:4 0 PM DIRECTOR OF PHOTOGRAPHY Narrative 10/29/2012 4:05 PM DIRECTOR OF PHOTOGRAPHY STEFANO BENNETT M.D. FINAL REPORT ACC# Date Time Exam [id number] Oct 29, 2012 12:40:[id number] Abd & Pelvis w EXAMINATION: Computed tomography of the abdomen and pelvis with intravenous contrast HISTORY: 67-year-old male with history of prostate cancer, status post radiation therapy and cryoablation. TECHNIQUE: Transaxial computed tomographic images of the abdomen and pelvis were obtained according to the standard protocol following intravenous administration of 125 mL of Optiray 350. There were no immediate complications after contrast administration. COMPARISON: No prior CT examination is currently available for comparison. FINDINGS: Limited images of the lung bases demonstrate no focal consolidation or pleural effusion. The heart size is normal and there is no pericardial effusion. The liver and gallbladder are normal without biliary ductal dilation. The spleen, pancreas, and adrenal glands are normal. There is a 4 mm nonobstructing calculus in the lower pole of the right kidney. The kidneys are otherwise normal without indication of hydronephrosis. The visualized small and large bowel are normal in caliber without indication of obstruction. There is no free intraperitoneal air or fluid. There is moderate atherosclerotic calcification of the abdominal aorta. There is no retroperitoneal or mesenteric lymphadenopathy. There are multiple nonspecific subcentimeter retroperitoneal lymph nodes. There is a fat containing umbilical hernia. The urinary bladder has thick wall and is decompressed with a suprapubic catheter. There is a fluid collection measuring approximately 5.1 x 2.4 x 3.4 cm in the prostate bed. On the 10 min delayed images, there is contrast leak within the fluid collection. There is no pelvic or inguinal lymphadenopathy. There are multiple subcentimeter bilateral external iliac lymph nodes. There is a fat containing left inguinal hernia. Small metallic objects in the left inguinal canal could be related to prior vasectomy. There is no suspicious lytic or blastic osseous lesion. IMPRESSION: 1. Fluid collection within the prostate bed with leak of contrast from the bladder neck/prosthetic urethra. 2. Thickwalled urinary bladder with suprapubic catheter in place. 3. Small nonobstructing right renal calculus. Requested By: VADIM WASSERMAN M.D. Dictated By: STEFANO BENNETT M.D. on Oct 29 2012 4:05P This document has been electronically signed by: STEFANO BENNETT M.D. on Oct 29 2012 4:05P Procedure Note Provider, MD Brendan - 01/14/2017 STEFANO BENNETT M.D. FINAL REPORT ACC# Date Time Exam [id number] Oct 29, 2012 12:40:[id number] Abd & Pelvis w EXAMINATION: Computed tomography of the abdomen and pelvis with intravenous contrast HISTORY: 67-year-old male with history of prostate cancer, status post radiation therapy and cryoablation. TECHNIQUE: Transaxial computed tomographic images of the abdomen and pelvis were obtained according to the standard protocol following intravenous administration of 125 mL of Optiray 350. There were no immediate complications after contrast administration. COMPARISON: No prior CT examination is currently available forcomparison. FINDINGS: Limited images of the lung bases demonstrate no focal consolidation or pleural effusion. The heart size is normal and there is no pericardial effusion. The liver and gallbladder are normal without biliary ductal dilation. The spleen, pancreas, and adrenal glands are normal. There is a 4 mm nonobstructing calculus in the lower pole of the right kidney. The kidneys are otherwise normal without indication of hydronephrosis. The visualized small and large bowel are normal in caliber without indication of obstruction. There is no free intraperitoneal air or fluid. There is moderate atherosclerotic calcification of the abdominal aorta. There is no retroperitoneal or mesenteric lymphadenopathy. There are multiple nonspecific subcentimeter retroperitoneal lymph nodes. There is a fat containing umbilical hernia. The urinary bladder has thick wall and is decompressed with a suprapubic catheter. There is a fluid collection measuring approximately 5.1 x 2.4 x 3.4 cm in the prostate bed. On the 10 min delayed images, there is contrast leak within the fluid collection. There is no pelvic or inguinal lymphadenopathy. There are multiple subcentimeter bilateral external iliac lymph nodes. There is a fat containing left inguinal hernia. Small metallic objects in the left inguinal canal could be related to prior vasectomy. There is no suspicious lytic or blastic osseous lesion. IMPRESSION: 1. Fluid collection within the prostate bed with leak of contrast from the bladder neck/prosthetic urethra. 2. Thickwalled urinary bladder with suprapubic catheter in place. 3. Small nonobstructing right renal calculus. Requested By: VADIM WASSERMAN M.D. Dictated By: STEFANO BENNETT M.D. on Oct 29 2012 4:05P This document has been electronically signed by: STEFANO BENNETT M.D. on Oct 29 2012 4:05P Historical Provider MD [place] CT PROCEDURES Final R esult from Last 3 Months or Most Recently Relevant to Health Maintenance Insurance MEDICARE MEDICARE [facility] Member Subscriber Plan / Payer (Ef fective 1998-Present) Name:Titus Alcaraz Relation to Subscriber:Spouse Name:INEZ ALCARAZ Date of :1961 (Home) Address: [address] [place] [address] Payer ID:[id number] (NAIC) Group ID:[id number] Type:[facility] Address: [address] [place] [address] MEDICARE [facility] [employer] Member Subscriber Plan / Payer (Ef fective 2023-Present) Name:Titus Alcaraz Relation to Subscriber:Spouse Name:KEEGANINEZ C Date of :1961 (Home) Address: [place] [address] Payer ID:[id number] (NAIC) Group ID:[id number] Type:[employer] Address: [facility] [id number] [place] [id number] Care Teams Salt [employer] Relationship Specialty Start Date End Date Sultana Shook MD PCP - General 12/05/20
--- OUTSIDE RECORDS SUMMARY | 2024-12-21 17:00 | XMS_ITS | Encounter Summary ---
Author Organization [facility] Address [address] [place] [address] Care Team Providers Care Computer Forensics Technician Name Role Phone Leonidas Doran MD Primary Care Provider [phone] Encounter Details Date Type Department Care Team (Late st Contact Info) Description 11/19/2023 Lab Requisition [facility] - DermPath Lab [address] [facility], [place] [address] Tessa Elena MD [address] [facility] 3 [place] [address] Social History Tobacco Use Types Packs/Day Years [...] Comments DERMATOPATHOLOGY Routine 11/19/2023 10:5 6 AM PICKING TABLE WORKER documented in this encounter Results * DERMATOPATHOLOGY (11/19/2023 10:56 AM PICKING TABLE WORKER) Case Report Dermatopathology Report Case: [id number] Authorizing Provider: Tessa Elena MD Collected: 11/19/2023 10:56 AM Ordering Location: [facility] - Received: 11/20/2023 01:05 PM DermPath Lab Pathologist: Freida Leach MD Specimens: A) - Skin, left episcopalian B) - Skin, right ant scalp 1:19 PM [facility] DERMATOPATHOLOGY LABORATORY Final Diagnosis Specimen A. SKIN, left episcopalian: SQUAMOUS CELL CARCINOMA IN SITU, PRESENT AT THE BASE OF THE SPECIMEN (D04.39) (see microscopic description and comment) Specimen B. SKIN, right ant scalp: SQUAMOUS CELL CARCINOMA, WELL DIFFERENTIATED (C44.42) 1:19 PM [facility] DERMATOPATHOLOGY LABORATORY Clinical History A-B: Growing R/O SCC 1:19 PM [facility] DERMATOPATHOLOGY LABORATORY Gross Description Specimen A: Received is one formalin filled container labeled with the patient's name and designated left episcopalian. The specimen consists of a two pieces shave biopsy measuring 5x5x1, 5x5x1 mm. Jar 0. Specimen B: Received is one formalin filled container labeled with the patient's name and designated right ant scalp. The specimen consists of a shave biopsy measuring 5x5x2 mm. Jar 0. 1:19 PM [facility] DERMATOPATHOLOGY LABORATORY Microscopic Description Specimen A. SKIN, left episcopalian: The epidermis shows parakeratosis, full thickness disorderly [...] showing evidence of premature cornification. 1:19 PM [facility] DERMATOPATHOLOGY LABORATORY Disclaimer An external and internal positive and negative controls are appropriate for the histochemical, immunohistochemical and immunofluorescence stain(s) in this case (if any), except where stated explicitly. The performance characteristics of the stain(s) cited in this report were developed and its performance characteristic determined by the Dermatopathology Laboratory at [facility], directed by Dr. Radha Collins. These tests need not be, and therefore are not, approved by the [place] Food and Drug Administration. The tests are used for clinical purposes. Billing Codes Specimen Charges Stain Charges 11802 68139 1 1 1:19 PM T DERMATOPATHOLOGY LABORATORY Embedded Images 1:19 PM [facility]T DERMATOPATHOLOGY LABORATORY Pathology/Cytology TISSUE SPECIMEN FROM SKIN / Unknown 11/19/2023 10:56 AM PICKING TABLE WORKER 11/20/2023 1:05 PM PICKING TABLE WORKER Miscellaneous samples (specimen) TISSUE SPECIMEN FROM SKIN / Unknown 11/19/2023 10:56 AM PICKING TABLE WORKER 11/20/2023 1:05 PM PICKING TABLE WORKER Tessa Elena MD LAB - PATHOLOGY/CYT OLOGY ORDERABLES DERMATOPATHOLOGY LABORATORY [facility] - Department of Dermatology [facility] Specialized Medicine [address] [place] [address], [address] [phone] documented in this encounter Visit Diagnoses Not on filedocumented in this encounter Care Teams Computer Forensics Technician Relationship Specialty Start Date End Date Leonidas Doran MD [address] [place] [address] PCP - General 10/20/11 documented as of this encounter
--- OUTSIDE RECORDS SUMMARY | 2024-12-21 17:00 | XMS_ITS | Clinical Summary ---
Author Organization [facility] Address [address] [facility] [place] [address] Care Team Providers Care Research And Development Engineer Name Role Phone Leonidas Doran MD Primary Care Provider [phone] Source Comments [facility],non-owned Affiliates and Associated Physician Practices is amultiple site organization consisting of ambulatory clinics and hospital sitesin [place], [place], [place] and [place]. This disclosure is being madepursuant to the Care Everywhere program and may not contain all information available regarding this patient. Last updated 18.[facility] Active Problems Problem Noted Date Diagnosed Date [...] VACCINE (1 - 2023-2 5 season) 2024 DEPRESSION SCREENING 09/14/2024 INFLUENZA VACCINE (Season Ended) 2025 HEPATITIS B VACCINE Aged Out No longe [...] age to complete this topic Care Teams Research And Development Engineer Relationship Specialty Start Date End Date Leonidas Dorna MD [address] [place] [address] PCP - General 10/20/11
--- OUTSIDE RECORDS SUMMARY | 2024-12-21 17:00 | XMS_ITS | Referral Summary ---
Author Organization [facility] Main [place] Address [address] [place] [address] Care Team Providers Care Production Recorder Name Role Phone Sultana Shook MD Primary Care Provider [phone] Encounters Date Type Department Care Team Description 12/16/2024 1:40 PM CDT Office Visit [facility] Surgery [address] [place] [address] [address] [place] [address] Retention of urine (Primary Dx) 12/06/[address] [facility] Cardiology [address] [facility] [address] [place] [address] Sultana Shook MD 10/26/2024 10:30 AM SATELLITE MANAGER Office Visit [facility] Medical Group Orthopedics and Sports Medicine [address] [place] [address] [address] [place] [address] Kirk Davalos PA Impingement syndrome of right shoulder (Primary Dx); Impingement syndrome of left shoulder; Pes anserinus bursitis of left knee 10/21/2024 1:00 PM SATELLITE MANAGER Office Visit [facility] Surgery [address] [place] [address] [address] [place] [address] Urinary retention (Primary Dx) from Last 3 Months Allergies No known active allergies Medications aspirin [...] of other malignant neoplasm of skin 12/05/2011 Immunizations Immunization Administration Dates Next Due Influenza, Quad, Adjuvantated, Intramuscular Moderna SARS-CoV-2 Monovalent Vaccination (12+ Y RS) 12/08/2020,11/01/2020 Social History Tobacco Use Types Packs/Day Years [...] on file Legal Sex Male 9:51 AM SATELLITE MANAGER Gender Identity Not on file Sexual Orientation Not on file Occupation Industry Job Start Date Job End Date Retired Not on file Not on file Not on file Last Filed Vital Signs Vital Sign Reading Time Taken Comments Blood Pressure 125/69 07/21/2023 2:00 AM SATELLITE MANAGER Pulse 68 07/21/2023 2:00 AM SATELLITE MANAGER Temperature 36.4 C (97.6 F) 07/20/2023 3:07 PM SATELLITE MANAGER Respiratory Rate 18 07/21/2023 2:00 AM SATELLITE MANAGER Oxygen Saturation 96% 07/21/2023 2:00 AM SATELLITE MANAGER Inhaled Oxygen Concentration - - Weight 99.8 kg (220 lb) 10/26/2024 10:08 AM SATELLITE MANAGER Height 182.9 cm (6') 10/26/2024 10:08 AM SATELLITE MANAGER Body Mass Index 29.84 10/26/2024 10:08 AM SATELLITE MANAGER Plan of Treatment Not on file Procedures Procedure Name Priority Date/Time Associated Diagnosis Comments [place] ARTHROCENTESIS ASPIR&/INJ MAJOR JT/BURSA W/O US Routine 10/26/2024 10:30 AM SATELLITE MANAGER Pes anserinus bursitis of left knee [place] ARTHROCENTESIS ASPIR&/INJ MAJOR JT/BURSA W/O US Routine 10/26/2024 10:30 AM SATELLITE MANAGER Impingement syndrome of right shoulder Impingement syndrome of left shoulder CT ABDOMEN PELVIS W CONTRAST Routine 10/29/2012 12:40 PM SATELLITE MANAGER from Last 3 Months or Most Recently Relevant to Health Maintenance Results * [place] ARTHROCENTESIS ASPIR&/INJ MAJOR JT/BURSA W/O US (10/26/2024 10:30 AM SATELLITE MANAGER) Narrative Kirk Davalos PA - 10/26/2024 10:30 AM SATELLITE MANAGER Kirk Davalos PA 10/26/2024 10:30 AM Large [...] IN CLINIC/BEDSIDE ORDERAB LES Final Result * [place] ARTHROCENTESIS ASPIR&/INJ MAJOR JT/BURSA W/O US (10/26/2024 10:30 AM SATELLITE MANAGER) Narrative Kirk Davalos PA - 10/26/2024 10:30 AM SATELLITE MANAGER Kirk Davalos PA 10/26/2024 10:30 AM Large [...] Abdomen Pelvis W Contrast (10/29/2012 12:40 PM SATELLITE MANAGER) Anatomical Region Laterality Modality Body N/A Computed Tomogra phy 10/29/2012 12:4 0 PM SATELLITE MANAGER Narrative 10/29/2012 4:05 PM SATELLITE MANAGER STEFANO BENNETT M.D. FINAL REPORT ACC# Date Time Exam [id number] Oct 29, 2012 12:40:[address] Abd & Pelvis w EXAMINATION: Computed [...] M.D. FINAL REPORT ACC# Date Time Exam [id number] Oct 29, 2012 12:40:[address] Abd & Pelvis w EXAMINATION: Computed [...] Relevant to Health Maintenance Insurance MEDICARE MEDICARE [facility] Member Subscriber Plan / Payer (Ef fective 1998-Present) Name:Titus Alcaraz Relation to Subscriber:Spouse Name:KEEGANINEZ [place] Date of :1961 (Home) Address: [address] [place] [address] Payer ID:[id number] (NAIC) Group ID:[id number] Type:[facility] [facility] Address: [address] [place] [address] MEDICARE [facility] Member Subscriber Plan / Payer (Ef fective 2023-Present) Name:Titus Alcaraz Relation to Subscriber:Spouse Name:INEZ ALCARAZ Date of :1961 (Home) Address: [address] [place] [id number] Payer ID:[id number] (NAIC) Group ID:[id number] Type:[employer] [facility] Address: [address] [place] [address] Care Teams Production Recorder Relationship Specialty Start Date End Date Sultana Shook MD PCP - General 12/05/20
--- OUTSIDE RECORDS SUMMARY | 2024-12-21 17:00 | XMS_ITS ---
Author Organization [facility] Main [place] Address [address] [place] [address] Care Team Providers Care Financial Supervisor Name Role Phone Sultana Shook MD Primary Care Provider [phone] Active Problems Problem Noted Date Diagnosed Date Shoulder joint pain 07/16/2021 Impingement syndrome of left shoulder 05/31/2021 Impingement syndrome of right shoulder Pes anserinus bursitis of left knee 05/31/2021 [...] of other malignant neoplasm of skin 12/05/2011 Current Treatment and Therapy Plans No current plan information found. Past Treatment and Therapy Plans No past plan information found. Lifetime Dose Tracking * Chemical Lifetime Dose Automatic Entry Manual Entr y Fluoro Time 0.833 minutes 0.833 minutes 0 minutes Air kerma at the reference point (Ka,r) 17.019 mGy 1 7.019 mGy 0 mGy DLP 637 mGycm 637 mGycm 0 mGycm
--- OUTSIDE RECORDS SUMMARY | 2024-12-21 18:11 | XMS_ITS | Encounter Summary ---
Author Organization [facility] Address [address] [facility] [place] [address] Care Team Providers Care Pre Sales Network Engineer Name Role Phone Leonidas Doran MD Primary Care Provider Encounter Details Date Type Department Care Team (Late st Contact Info) Description 11/19/2023 Lab Requisition [facility] - DermPath Lab [address] [facility], Third [place] [address] Tessa Elena MD [address] [facility] 3 DEPT OF D[place]MATOLOG[place] [address] Social History Tobacco Use Types Packs/Day Years [...] Comments DERMATOPATHOLOGY Routine 11/19/2023 10:5 6 AM SPECIAL EFFECTS ARTIST documented in this encounter Results * DERMATOPATHOLOGY (11/19/2023 10:56 AM SPECIAL EFFECTS ARTIST) Case Report Dermatopathology Report Case: [id number] Authorizing Provider: Tessa Elena MD Collected: 11/19/2023 10:56 AM Ordering Location: [facility] - Received: 11/20/2023 01:05 PM DermPath Lab Pathologist: Freida Leach MD Specimens: A) - Skin, left baptism B) - Skin, right ant scalp 1:19 PM [facility] DERMATOPATHOLOGY LABORATORY Final Diagnosis Specimen A. SKIN, left baptism: SQUAMOUS CELL CARCINOMA IN SITU, PRESENT AT THE BASE OF THE SPECIMEN (D04.39) (see microscopic description and comment) Specimen B. SKIN, right ant scalp: SQUAMOUS CELL CARCINOMA, WELL DIFFERENTIATED (C44.42) 1:19 PM [facility] DERMATOPATHOLOGY LABORATORY Clinical History A-B: Growing R/O SCC 1:19 PM [facility] DERMATOPATHOLOGY LABORATORY Gross Description Specimen A: Received is one formalin filled container labeled with the patient's name and designated left baptism. The specimen consists of a two pieces shave biopsy measuring 5x5x1, 5x5x1 mm. Jar 0. Specimen B: Received is one formalin filled container labeled with the patient's name and designated right ant scalp. The specimen consists of a shave biopsy measuring 5x5x2 mm. Jar 0. 1:19 PM [facility] DERMATOPATHOLOGY LABORATORY Microscopic Description Specimen A. SKIN, left baptism: The epidermis shows parakeratosis, full thickness disorderly [...] showing evidence of premature cornification. 1:19 PM [facility] DERMATOPATHOLOGY LABORATORY Disclaimer An external and internal positive and negative controls are appropriate for the histochemical, immunohistochemical and immunofluorescence stain(s) in this case (if any), except where stated explicitly. The performance characteristics of the stain(s) cited in this report were developed and its performance characteristic determined by the Dermatopathology Laboratory at [facility], directed by Dr. Radha Collins. These tests need not be, and therefore are not, approved by the [place] Food and Drug Administration. The tests are used for clinical purposes. Billing Codes Specimen Charges Stain Charges 53718 47393 1 1 1:19 PM T DERMATOPATHOLOGY LABORATORY Embedded Images 1:19 PM [facility] DERMATOPATHOLOGY LABORATORY Pathology/Cytology TISSUE SPECIMEN FROM SKIN / Unknown 11/19/2023 10:56 AM SPECIAL EFFECTS ARTIST 11/20/2023 1:05 PM SPECIAL EFFECTS ARTIST Miscellaneous samples (specimen) TISSUE SPECIMEN FROM SKIN / Unknown 11/19/2023 10:56 AM SPECIAL EFFECTS ARTIST 11/20/2023 1:05 PM SPECIAL EFFECTS ARTIST Tessa Elena MD LAB - PATHOLOGY/CYT OLOGY ORDERABLES DERMATOPATHOLOGY LABORATORY [facility] - Department of Dermatology [facility] Specialized Medicine [address] [place] [address], [address] [phone] documented in this encounter Visit Diagnoses Not on filedocumented in this encounter Care Teams Pre Sales Network Engineer Relationship Specialty Start Date End Date Leonidas Doran MD [address] [place] [address] PCP - General 10/20/11 documented as of this encounter
--- OUTSIDE RECORDS SUMMARY | 2024-12-21 18:11 | XMS_ITS | Clinical Summary ---
Author Organization [facility] Address [address] [facility] [place] [address] Care Team Providers Care Chemistry Quality Control Technician Name Role Phone Leonidas Doran MD Primary Care Provider Source Comments [facility],non-owned Affiliates and Associated Physician Practices is amultiple site organization consisting of ambulatory clinics and hospital sitesin [place], [place], [place]. This disclosure is being madepursuant to the Care Everywhere program and may not contain all information available regarding this patient. Last updated 18.[facility] Active Problems Problem Noted Date Diagnosed [...] age to complete this topic Care Teams Chemistry Quality Control Technician Relationship Specialty Start Date End Date Leonidas Doran MD [address] [place] [address] PCP - General 10/20/11
--- OUTSIDE RECORDS SUMMARY | 2024-12-21 18:11 | XMS_ITS | Clinical Summary ---
Author Organization [facility] Address [address] [place] [address] Care Team Providers Care Quantitative Researcher Name Role Phone Sultana Shook MD Primary Care Provider [phone] Social History Tobacco Use Types Packs/Day Years [...] patient's age to complete this topic Insurance [facility] Care Teams Quantitative Researcher Relationship Specialty Start Date End Date Sultana Shook MD [address] [place] [address] PCP - General FAMILY PRACTICE 04/21/23
--- OUTSIDE RECORDS SUMMARY | 2024-12-21 18:11 | XMS_ITS | Clinical Summary ---
Author Organization [facility] Main [place] Address [address] [place] [address] Care Team Providers Care Technical Recruiter Name Role Phone Sultana Shook MD Primary Care Provider [phone] Allergies No known active allergies Medications aspirin [...] Description 12/16/2024 1:40 PM CDT Office Visit [facility] Surgery [address] [facility] [address] [place] [address] Retention of urine (Primary Dx) 12/06/2024 Telephone [facility] Medical [facility] Cardiology [address] [place] [address] Sultana Shook MD 10/26/2024 10:30 AM SPECIAL ED ASSISTANT Office Visit [facility] Orthopedics and Sports Medicine [address] [place] [address] [address] [place] [address] Kirk Davalos PA Impingement syndrome of right shoulder (Primary Dx); Impingement syndrome of left shoulder; Pes anserinus bursitis of left knee 10/21/2024 1:00 PM SPECIAL ED ASSISTANT Office Visit [facility] Surgery [facility] [facility] [address] [place] [address] Urinary retention (Primary Dx) from Last 3 [...] on file Legal Sex Male 9:51 AM SPECIAL ED ASSISTANT Gender Identity Not on file Sexual Orientation Not on file Occupation Industry Job Start Date Job End Date Retired Not on file Not on file Not on file Obstetrics History Last Filed Vital Signs Vital Sign Reading Time Taken Comments Blood Pressure 125/69 07/21/2023 2:00 AM SPECIAL ED ASSISTANT Pulse 68 07/21/2023 2:00 AM SPECIAL ED ASSISTANT Temperature 36.4 C (97.6 F) 07/20/2023 3:07 PM SPECIAL ED ASSISTANT Respiratory Rate 18 07/21/2023 2:00 AM SPECIAL ED ASSISTANT Oxygen Saturation 96% 07/21/2023 2:00 AM SPECIAL ED ASSISTANT Inhaled Oxygen Concentration - - Weight 99.8 kg (220 lb) 10/26/2024 10:08 AM SPECIAL ED ASSISTANT Height 182.9 cm (6') 10/26/2024 10:08 AM SPECIAL ED ASSISTANT Body Mass Index 29.84 10/26/2024 10:08 AM SPECIAL ED ASSISTANT Plan of Treatment Health Maintenance Due Date [...] Procedure Name Priority Date/Time Associated Diagnosis Comments [place] ARTHROCENTESIS ASPIR&/INJ MAJOR JT/BURSA W/O US Routine 10/26/2024 10:30 AM SPECIAL ED ASSISTANT Pes anserinus bursitis of left knee [place] ARTHROCENTESIS ASPIR&/INJ MAJOR JT/BURSA W/O US Routine 10/26/2024 10:30 AM SPECIAL ED ASSISTANT Impingement syndrome of right shoulder Impingement syndrome of left shoulder CT ABDOMEN PELVIS W CONTRAST Routine 10/29/2012 12:40 PM SPECIAL ED ASSISTANT from Last 3 Months or Most Recently Relevant to Health Maintenance Results * [place] ARTHROCENTESIS ASPIR&/INJ MAJOR JT/BURSA W/O US (10/26/2024 10:30 AM SPECIAL ED ASSISTANT) Narrative Kirk Davalos PA - 10/26/2024 10:30 AM SPECIAL ED ASSISTANT Kirk Davalos PA 10/26/2024 10:30 AM Large [...] IN CLINIC/BEDSIDE ORDERAB LES Final Result * [place] ARTHROCENTESIS ASPIR&/INJ MAJOR JT/BURSA W/O US (10/26/2024 10:30 AM SPECIAL ED ASSISTANT) Narrative Kirk Davalos PA - 10/26/2024 10:30 AM SPECIAL ED ASSISTANT Kirk Davalos PA 10/26/2024 10:30 AM Large [...] Abdomen Pelvis W Contrast (10/29/2012 12:40 PM SPECIAL ED ASSISTANT) Anatomical Region Laterality Modality Body N/A Computed Tomogra phy 10/29/2012 12:4 0 PM SPECIAL ED ASSISTANT Narrative 10/29/2012 4:05 PM SPECIAL ED ASSISTANT STEFANO BNENETT M.D. FINAL REPORT ACC# Date Time Exam [id number] Oct 29, 2012 12:40:[address] Abd & Pelvis w EXAMINATION: Computed [...] M.D. FINAL REPORT ACC# Date Time Exam [id number] Oct 29, 2012 12:40:[address] Abd & Pelvis w EXAMINATION: Computed [...] Relevant to Health Maintenance Insurance MEDICARE MEDICARE [facility] FEDERAL Member Subscriber Plan / Payer (Ef fective 1998-Present) Name:Titus Alcaraz Relation to Subscriber:Spouse Name:INEZ ALCARAZ Date of :1961 (Home) Address: [address] [place] [address] Payer ID:[id number] (NAIC) Group ID:[id number] Type:[facility] Address: [address] [place] [address] MEDICARE [facility] FED[employer]AL Member Subscriber Plan / Payer (Ef fective 2023-Present) Name:Titus Alcaraz Relation to Subscriber:Spouse Name:KEEGANINEZ C Date of :1961 (Home) Address: [place] [address] Payer ID:[id number] (NAIC) Group ID:[id number] Type:[employer] Address: [facility] [address] [place] [id number] Care Teams Technical Recruiter Relationship Specialty Start Date End Date Sultana Shook MD PCP - General 12/05/20
--- OUTSIDE RECORDS SUMMARY | 2024-12-21 18:11 | XMS_ITS ---
Author Organization [facility] Main [place] Address [address] [place] [address] Care Team Providers Care Handbag Finisher Name Role Phone Sultana Shook MD Primary Care Provider [phone] Active Problems Problem Noted Date Diagnosed Date [...]
--- OUTSIDE RECORDS SUMMARY | 2024-12-21 18:11 | XMS_ITS | Referral Summary ---
Author Organization [facility] [address] [place] Address [address] [place] [address] Care Team Providers Care Blow Torch Burner Name Role Phone Sultana Shook MD Primary Care Provider [phone] Encounters Date Type Department Care Team Description 12/16/2024 1:40 PM CDT Office Visit [facility] Surgery [address] [place] [address] [address] [place] [address] Retention of urine (Primary Dx) 12/06/2024 Telephone [facility] Cardiology [address] [facility] [address] [place] [address] Sultana Shook MD 10/26/2024 10:30 AM RIBBON BLOCKMAKER Office Visit [facility] Orthopedics and Sports Medicine [address] [place] [address] [address] [place] [address] Kirk Davalos PA Impingement syndrome of right shoulder (Primary Dx); Impingement syndrome of left shoulder; Pes anserinus bursitis of left knee 10/21/2024 1:00 PM RIBBON BLOCKMAKER Office Visit [facility] Surgery [address] [place] [address] [address] [place] [address] Urinary retention (Primary Dx) from [...] on file Legal Sex Male 9:51 AM RIBBON BLOCKMAKER Gender Identity Not on file Sexual Orientation Not on file Occupation Industry Job Start Date Job End Date Retired Not on file Not on file Not on file Last Filed Vital Signs Vital Sign Reading Time Taken Comments Blood Pressure 125/69 07/21/2023 2:00 AM RIBBON BLOCKMAKER Pulse 68 07/21/2023 2:00 AM RIBBON BLOCKMAKER Temperature 36.4 C (97.6 F) 07/20/2023 3:07 PM RIBBON BLOCKMAKER Respiratory Rate 18 07/21/2023 2:00 AM RIBBON BLOCKMAKER Oxygen Saturation 96% 07/21/2023 2:00 AM RIBBON BLOCKMAKER Inhaled Oxygen Concentration - - Weight 99.8 kg (220 lb) 10/26/2024 10:08 AM RIBBON BLOCKMAKER Height 182.9 cm (6') 10/26/2024 10:08 AM RIBBON BLOCKMAKER Body Mass Index 29.84 10/26/2024 10:08 AM RIBBON BLOCKMAKER Plan of Treatment Not on file Procedures Procedure Name Priority Date/Time Associated Diagnosis Comments [place] ARTHROCENTESIS ASPIR&/INJ MAJOR JT/BURSA W/O US Routine 10/26/2024 10:30 AM RIBBON BLOCKMAKER Pes anserinus bursitis of left knee AZ ARTHROCENTESIS ASPIR&/INJ MAJOR JT/BURSA W/O US Routine 10/26/2024 10:30 AM RIBBON BLOCKMAKER Impingement syndrome of right shoulder Impingement syndrome of left shoulder CT ABDOMEN PELVIS W CONTRAST Routine 10/29/2012 12:40 PM RIBBON BLOCKMAKER from Last 3 Months or Most Recently Relevant to Health Maintenance Results * [place] ARTHROCENTESIS ASPIR&/INJ MAJOR JT/BURSA W/O US (10/26/2024 10:30 AM RIBBON BLOCKMAKER) Narrative Kirk Davalos PA - 10/26/2024 10:30 AM RIBBON BLOCKMAKER Kirk Davalos PA 10/26/2024 10:30 AM Large [...] IN CLINIC/BEDSIDE ORDERAB LES Final Result * [place] ARTHROCENTESIS ASPIR&/INJ MAJOR JT/BURSA W/O US (10/26/2024 10:30 AM RIBBON BLOCKMAKER) Narrative Kirk Davalos PA - 10/26/2024 10:30 AM RIBBON BLOCKMAKER Kirk Davalos PA 10/26/2024 10:30 AM Large [...] Abdomen Pelvis W Contrast (10/29/2012 12:40 PM RIBBON BLOCKMAKER) Anatomical Region Laterality Modality Body N/A Computed Tomogra phy 10/29/2012 12:4 0 PM RIBBON BLOCKMAKER Narrative 10/29/2012 4:05 PM RIBBON BLOCKMAKER STEFANO BENNETT M.D. FINAL REPORT ACC# Date Time Exam [id number] Oct 29, 2012 12:40:[id number] Abd & Pelvis w EXAMINATION: Computed [...] M.D. FINAL REPORT ACC# Date Time Exam [id number] Oct 29, 2012 12:40:[id number] Abd & Pelvis w EXAMINATION: Computed [...] By: VADIM WASSERMAN M.D. Dictated By: STEFANO BENENTT M.D. on Oct 29 2012 4:05P This document has been electronically signed by: STEFANO BENNETT M.D. on Oct 29 2012 4:05P Historical Provider MD [place] CT PROCEDURES Final R esult from Last 3 Months or Most Recently Relevant to Health Maintenance Insurance MEDICARE MEDICARE [facility] Member Subscriber Plan / Payer (Ef fective 1998-Present) Name:Titus Alcaraz Relation to Subscriber:Spouse Name:KEEGANINEZ [place] Date of :1961 (Home) Address: [address] [place] [address] Payer ID:[id number] (NAIC) Group ID:[id number] Type:[facility] Address: [address] [place] [address] MEDICARE [facility] Member Subscriber Plan / Payer (Ef fective 2023-Present) Name:Titus Alcaraz Relation to Subscriber:Spouse Name:INEZ ALCARAZ Date of :1961 (Home) Address: [address] [place] [id number] Payer ID:[id number] (NAIC) Group ID:[id number] Type:[facility] Address: [address] [place] [address] Care Teams Blow Torch Burner Relationship Specialty Start Date End Date Sultana Shook MD PCP - General 12/05/20
--- OUTSIDE RECORDS SUMMARY | 2024-12-21 18:11 | XMS_ITS | Encounter Summary ---
Author Organization [facility] Address [address] [place] [address] Care Team Providers Care Greeting Card Editor Name Role Phone Leonidas Doran MD Primary Care Provider Encounter Details Date Type Department Care Team (Late st Contact Info) Description 08/22/2020 Lab Requisition [facility] [address] [facility] [place] [address] Tessa Elena MD [address] [place] [address] Social History Tobacco Use Types Packs/Day Years [...] Comments DERMATOPATHOLOGY Routine 08/21/2020 12:0 0 AM RETURN TO SERVICE INSPECTOR documented in this encounter Results * DERMATOPATHOLOGY (08/21/2020 12:00 AM RETURN TO SERVICE INSPECTOR) Case Report Dermatopathology Report Case: [id number] Authorizing Provider: Tessa Elena MD Collected: 08/21/2020 12:00 AM Ordering Location: [facility] Received: 08/22/2020 06:49 AM Pathologist: Parrish Collins MD Specimen: Skin, left conchal 0 3:37 PM RETURN TO SERVICE INSPECTOR DERMATOPATHOLOGY LABORATORY Final Diagnosis Specimen A. SKIN, left conchal: SQUAMOUS CELL CARCINOMA, WELL DIFFERENTIATED (C44.229) (see microscopic description) 0 3:37 PM RETURN TO SERVICE INSPECTOR DERMATOPATHOLOGY LABORATORY Clinical History R/O BCC, irritated. 0 3:37 PM RETURN TO SERVICE INSPECTOR DERMATOPATHOLOGY LABORATORY Gross Description Specimen A: Received is one formalin filled container labeled with the patient's name and designated left conchal. The specimen consists of a shave measuring 1q2l2at. Jar 0. 0 3:37 PM RETURN TO SERVICE INSPECTOR DERMATOPATHOLOGY LABORATORY Microscopic Description Specimen A. SKIN, left conchal: Arising in the epidermis and extending into the dermis there are irregularly shaped aggregates of keratinocytes showing evidence of premature cornification. Additional deeper sections were obtained and reviewed. 0 3:37 PM RETURN TO SERVICE INSPECTOR DERMATOPATHOLOGY LABORATORY Disclaimer An external and internal positive and negative controls are appropriate for the histochemical, immunohistochemical and immunofluorescence stain(s) in this case (if any), except where stated explicitly. The performance characteristics of the stain(s) cited in this report were developed and its performance characteristic determined by the Dermatopathology Laboratory at [facility], directed by Dr. Radha Collins. These tests need not be, and therefore are not, approved by the [place] Food and Drug Administration. The tests are used for clinical purposes. Billing Codes Specimen Charges Stain Charges 38653 1 0 3:37 PM RETURN TO SERVICE INSPECTOR DERMATOPATHOLOGY LABORATORY Embedded Images 0 3:37 PM RETURN TO SERVICE INSPECTOR DERMATOPATHOLOGY LABORATORY Pathology/Cytolog y TISSUE SPECIMEN FROM SKIN / Unknown 08/21/2020 08/22/2020 6:49 AM RETURN TO SERVICE INSPECTOR Tessa Elena MD LAB - PATHOLOGY/CYT OLOGY ORDERABLES DERMATOPATHOLOGY LABORATORY [facility] - Department of Dermatology [facility] Medicine [address] [place] [address], [address] [place] [address], [facility] [phone] documented in this encounter Visit Diagnoses Not on filedocumented in this encounter Care Teams Greeting Card Editor Relationship Specialty Start Date End Date Leonidas Doran MD [address] [place] [address] PCP - General 10/20/11 documented as of this encounter
--- NOTE | 2024-12-21 19:12 | ED_ITS ---
HPI - SOB/Dyspnea General Chief Complaint: Shortness of Breath/Dyspnea Stated Complaint: SOB Time Seen by Provider: 12/21/24 17:28 History of Present Illness HPI Narrative: 79-year-old male with history of hyperlipidemia, hypertension, moderate concentric left ventricular hypertrophy, grade 1 diastolic dysfunction presents to the emergency department with family at bedside for exertional dyspnea for the past 2 weeks, fatigue and intermittent chest pressure. Patient states in the morning the morning he feels fine but throughout the day, and specifically when exerting himself, he becomes more short of breath. He also notes chest tightness that at times radiates to his back. States chest pressure is worse after eating and also with exertion. He is prescribed omeprazole but has not been taking this. He denies lower extremity edema, history of VTE, cough or congestion, hemoptysis, fevers. He reportedly was evaluated by his PCP and started on cefdinir and azithromycin within the past couple of weeks for presumed pneumonia. States he took this as directed without improvement so presented to our ED today. Per his PCP's note, Dr. Shook, the patient was referred to Cardiology and also had a workup including an echo and stress test ordered which he has not followed up for. He did have lab work which showed normal TSH, hgb of 12.8, elevated d dimer to 2.26, Cr 1.28, BUN 27, normal BNP when age adjusted. He denies personal known history of CAD, smoking, CVA, history of COPD or asthma. Patient states he had a cardiac catheterization about 10 years ago at [facility] which was reportedly unremarkable. Per chart review he had an echocardiogram performed May 2021 which showed normal EF, moderate LVH, grade 1 diastolic dysfunction, [id number] aortic valve regurg. He denies orthopnea, melena, hematochezia. He does note that his father had a history of heart disease and vascular disease. Related Data Home Medications ?Medication ?Instructions ?Recorded ?Confirmed ?Last Taken ?Type aspirin 81 mg tablet,delayed 81 mg PO DAILY 09/25/20 12/10/23 Unknown History release (Adult Aspirin Regimen) calcium 600 mg (as cap PO 09/25/20 12/10/23 Unknown History carbonate)-vitamin D3 12.5 mcg (500 unit) capsule (Calcium with Vit D3) Allergies Allergy/AdvReac Type Severity Reaction Status Date / Time No Known Allergies Allergy Verified 12/05/24 13:50 Review of Systems 2 Review of Systems: All systems reviewed & are unremarkable except as noted in HPI and below PMFSH Past Medical History Medical History Umbilical hernia Obesity (BMI 30-39.9) Constipation Cardiomyopathy Prediabetes HLD (hyperlipidemia) Hypertension FH: radiation therapy Basal cell carcinoma of skin Squamous cell skin cancer Prostate cancer Surgical History Surgical History History of lumbar surgery History of prostate surgery History of total left knee replacement History of total right knee replacement (TKR) Family History Family History Father Diabetes mellitus Malignant neoplasm of prostate Mother Diabetes mellitus Sibling Diabetes mellitus Social History Social History Smoking packs per day: 0.5 Smoking cigarettes per day: 10.0 Years smoked: 10 Smoking pack-years: 5.00 Smoking status: Former smoker Tobacco type: cigarettes Second hand tobacco smoke exposure: Yes Smoking end date: 09/14/89 Alcohol intake: never Substance use: never Substance use type: does not use Lack of Transportation: No Lack of Food: Never True Current Housing: I Have Housing Concerned About Future Housing: No Difficulty Paying Gas/Electric Bills: No Difficulty Paying for Meds: No Currently Unemployed: No Education: High School Diploma/GED Difficulty w/ Childcare or Family Care: No Living arrangements: with family Occupation/Education: retired Gender identity (if verbalized by the patient): Male Sexual Orientation (if Verbalized by the Patient): Straight or Heterosexual Spiritual care concerns: No Agree to blood products: Yes Exam 2 Narrative: GENERAL: Well-appearing, well-nourished, and in no acute distress. HEAD: Normocephalic, atraumatic. EYES: PERRLA and EOMI. ENT: Nares clear, no rhinorrhea or epistaxis. Mucous membranes moist. NECK: Supple. CHEST: Clear to auscultation. No respiratory distress. HEART: Regular rate and rhythm. No murmur heard. Normal peripheral pulses. ABDOMEN: Soft, nontender, nondistended, normal active bowel sounds. EXTREMITIES: Normal range of motion. No edema. Negative Homans bilaterally SKIN: Warm, dry, no rash. NEURO: No focal deficits. Alert and oriented x3 Course Vital Signs Vital signs: Vital Signs Temperature 98.2 F 12/21/24 15:57 Pulse Rate 74 12/21/24 15:57 Respiratory Rate 16 12/21/24 15:57 Blood Pressure 122/51 L 12/21/24 15:57 Pulse Oximetry 100 12/21/24 15:57 Oxygen Delivery Room Air 12/21/24 15:57 Temperature 98 F 12/21/24 19:20 Pulse Rate 63 12/21/24 19:20 Respiratory Rate 15 12/21/24 19:20 Blood Pressure 130/58 L 12/21/24 19:20 Pulse Oximetry 100 12/21/24 19:20 Oxygen Delivery Room Air 12/21/24 19:20 MDM - SOB/Dyspnea MDM Narrative Medical decision making narrative: 79-year-old male with history of LVH, hypertension, hyperlipidemia, grade 1 diastolic dysfunction presents to emergency department with family at bedside for exertional dyspnea and chest tightness for the past 2 weeks. Also reporting chest pressure that occurs after eating. Patient is prescribed omeprazole. Vitals are stable. Exam is significant for the above. Patient is resting comfortably in exam bed satting 100% on room air in no distress. EKG shows sinus rhythm with occasional PVCs, normal NJ interval, normal QRS duration, normal QTC. Troponin and delta troponin undetectable. CBC with nonspecific leukocytosis of 11.8, hemoglobin of 13.2 which is increased from most recent lab draw in November. Chemistries with sodium of 133, BUN 52, creatinine of 1.4. Recent creatinine on 12/06 was 1.28. BNP is normal when age adjusted. Chest x-ray shows no acute cardiopulmonary findings. Given recent outpatient elevated D-dimer and patient's symptoms are radiate to his back, CTA chest PE obtained which shows no PE, no acute cardiopulmonary findings. There is incidentally a right thyroid nodule with recommendations for ultrasound. Again TSH on 12/06 was within normal limits. Patient family at bedside updated on results. Patient does have heart score 6. Discussed the case with bolt loader, Dr. Renner, who agrees to consult on admission. Advises NPO at midnight. Discussed with hospitalist, Dr. Melendez, who agrees to admission. Lab Data 12/21/24 16:20 12/21/24 16:20 Labs: Lab Results 12/21/24 12/21/24 12/21/24 Range/Units 16:19 16:20 22:19 WBC 11.8 H (4.5-10.0) K/mm3 RBC 4.58 L (4.6-6.20) M/mm3 Hgb 13.2 L (14.0-18.0) g/dL Hct 40.1 L (42.0-52.0) % MCV 87.6 (80-100) fl MCH 28.8 (26-34) pg MCHC 32.9 (32-36) g/dl RDW 14.3 (11.5-14.5) % Plt Count 274 (150-375) k/mm3 MPV 10.0 (7.4-10.4) fl Immature Gran % (Auto) 1.4 H (0-0.5) % Neut % (Auto) 63.4 (45.5-73.1) % Lymph % (Auto) 24.5 (18.3-44.2) % Loving % (Auto) 8.6 H (2.6-8.5) % Eos % (Auto) 1.3 (0-4.4) % Baso % (Auto) 0.8 (0.2-1.2) % Lymph # (Auto) 2.90 (0.9-3.2) K/mm3 Loving # (Auto) 1.0 H (0.1-0.6) K/mm3 Eos # (Auto) 0.2 (0-0.3) K/mm3 Baso # (Auto) 0.1 (0.0-0.1) K/mm3 Abs Immat Gran (auto) 0.16 H (0.00-0.031) K/mm3 Absolute Neuts (auto) 7.5 H (1.3-6.7) K/mm3 Absolute Nucleated RBC 0.000 (0.0-0.012) K/mm3 Nucleated RBC % 0.0 (0.0-0.2) % PT 13.7 (11.1-14.7) Seconds INR 1.0 APTT 29.1 (22.3-36.8) Seconds Sodium 133 L (137-145) mmol/L Potassium 4.9 (3.4-5.0) mmol/L Chloride 103 (98-107) mmol/L Carbon Dioxide 19 L (22-30) mmol/L Anion Gap 11 (4-12) mmol/L BUN 52 H (9-20) mg/dL Creatinine 1.40 H (0.7-1.3) mg/dL Estim Creat Clear Calc 40 ml/min Estimated GFR 49 L (59 - ) Glucose 92 (65-110) mg/dL Calcium 9.8 (8.4-10.2) mg/dL Total Bilirubin 0.6 (0.2-1.3) mg/dL AST 30 (17-59) U/L ALT 20 (6-50) U/L Alkaline Phosphatase 47 (38-126) U/L Troponin I < 0.012 < 0.012 (0.000-0.034) ng/mL NT-Pro-B Natriuret Pep 396 H (19.9-100) pg/mL Total Protein 8.0 (6.3-8.2) g/dL Albumin 4.3 (3.5-5.1) g/dL Discharge Plan Discharge Clinical Impression: Thyroid nodule Chest pain Qualifiers: Chest pain type: unspecified Qualified Code(s): R07.9 - Chest pain, unspecified Patient Disposition: Still a Patient Condition: Stable Patient Language: Croatian Prescriptions: No Action aspirin [Adult Aspirin Regimen] 81 mg tablet,delayed release (DR/EC) 81 mg PO DAILY calcium carbonate-vitamin D3 [Calcium 600 with Vitamin D3] 600 mg(1,500mg) - 500 unit capsule PO hydrocodone-acetaminophen 5-325 mg tablet 1 tablet PO Q6H PRN (Reason: pain) Qty: 30 0RF carvedilol 6.25 mg tablet 6.25 mg PO Q12H Qty: 180 2RF Rx Instructions: must administer with a meal/food lisinopril 10 mg tablet See Rx Instructions .ROUTE .COMPLEX Qty: 90 1RF Dose Instruction: TAKE 1 TABLET BY MOUTH DAILY Rx Instructions: TAKE 1 TABLET BY MOUTH DAILY omeprazole 20 mg capsule,delayed release(DR/EC) See Rx Instructions .ROUTE .COMPLEX Qty: 90 1RF Dose Instruction: TAKE 1 CAPSULE BY MOUTH DAILY Rx Instructions: TAKE 1 CAPSULE BY MOUTH DAILY azithromycin 250 mg tablet See Rx Instructions PO .COMPLEX Qty: 6 0RF Rx Instructions: For 250 mg dose pack: take 500 mg today (day 1), then 250 mg for 4 days (days 2-5) PO Follow-up/Referrals: Sultana Shook MD [Primary Care Provider] - Quality HEART score for chest pain patients History: highly suspicioius ECG: normal Age: > or = to 65 years Risk factors: > or = to 3 risk factors of atherosclerotic disease Troponin: < or = to 1x normal limit Heart score: 6
[2024-12-21 19:35] LABS: Partial Thromboplastin Time 29.1 Seconds (22.3-36.8); Prothrombin Time 13.7 Seconds (11.1-14.7)
[2024-12-21 19:41] LABS: NT Pro B Type Natriuretic Pept 396 pg/mL (19.9-100); Troponin I < 0.012 ng/mL (0.000-0.034)
[2024-12-21] MEDS: FAMOTIDINE 20 MG/2 ML VIAL IV PUSH (19:42)
[2024-12-21] MEDS: SODIUM CHLORIDE 0.9% IV 500 ML 999 ML IV CONT (21:26)
--- NOTE | 2024-12-21 22:02 | ECG_ITS ---
Test Date: 2024-12-21 22:06:22 Measurements Intervals [place] Rate: 63 P: -3 AR: 167 QRS: 7 QRSD: 98 T: 56 QT: 405 QTc: 417 Interpretive Statements SINUS RHYTHM LOW QRS VOLTAGE IN PRECORDIAL LEADS BASELINE ARTIFACT- I, III, AVR, AVL, AVF, V1 BORDERLINE ECG Compared to ECG 12/21/2024 16:28:28 Ventricular premature complex(es) no longer present Electronically Signed On 12-22-2024 05:41:30 CDT by Tam Romero D.O.
[2024-12-21 22:48] LABS: Troponin I < 0.012 ng/mL (0.000-0.034)
[2024-12-21] MEDS: ASPIRIN 81 MG CHEWABLE TABLET 324 MG PO (23:16)
[2024-12-22] VITALS (17 sets, daily range): BP systolic 98–131; BP diastolic 46–61; PULSE 48–89; RESP 16–22; TEMP 36.3–36.7; O2SAT 95–100; BMI 28.0
--- NOTE | 2024-12-22 | ECHO_ITS ---
Patient Info Name: Drew Alcaraz Age: 79 years : 1945 Gender: Male Ht: 71 in Wt: 200 lbs BSA: 2.15 m2 HR: 56 bpm BP: 110 / 46 mmHg Heart Rhythm: Sinus Rhythm, Bradycardia Technical Quality: Good Exam Date: 12/22/2024 9:40 AM Exam Location: Echo Lab Patient Status: Outpatient Admit Date: 12/21/2024 Staff Ordering Physician: J Luis Melendez MD Health And Social Care Teacher: Elo Bullock RDCS Attending Provider: J Luis Melendez MD Referring Physician: Nora LUO; Exam Type: CA echo doppler color flow Study Info Indications - DAILY Complete two-dimensional, color flow and Doppler transthoracic echocardiogram is performed. Summary 1. Left ventricular chamber dimension is normal. 2. Left ventricular systolic function is normal, estimated at 60-65%. 3. There is mildly increased left ventricular wall thickness. 4. The left ventricular diastolic function is grade I diastolic dysfunction. 5. Right ventricular chamber dimension is mildly enlarged. 6. Right ventricular systolic function is normal. 7. There is mild aortic valve regurgitation. 8. There is mild mitral valve regurgitation. 9. There is mild tricuspid valve regurgitation. 10. There is mild pulmonic regurgitation. 11. Normal inferior vena cava with >50% collapse upon inspiration consistent with normal right atrial pressure, 3 mmHg. Left Ventricle Left ventricular chamber dimension is normal. Left ventricular systolic function is normal, estimated at 60-65%. There is mildly increased left ventricular wall thickness. The left ventricular diastolic function is grade I diastolic dysfunction. Right Ventricle Right ventricular chamber dimension is mildly enlarged. Right ventricular systolic function is normal. Left Atria Left atrial chamber dimension is normal. Right Atria Right atrial chamber dimension is normal. Atrial Septum Intact interatrial septum visualized by color flow imaging. Aortic Valve The aortic valve is probable trileaflet. There is no aortic valve stenosis. There is mild aortic valve regurgitation. There is mild aortic valve calcification. Pulmonic Valve The pulmonic valve is not well visualized. There is mild pulmonic regurgitation. Mitral Valve There is mild mitral valve regurgitation. Tricuspid Valve There is mild tricuspid valve regurgitation. Pericardium/Pleural There is no pericardial effusion. Inferior Vena Cava Normal inferior vena cava with >50% collapse upon inspiration consistent with normal right atrial pressure, 3 mmHg. Aorta The aortic root size at the sinus of Valsalva is normal. Left Ventricular Outflow Tract Name Value Normal LVOT 2D LVOT Diameter 2.0 cm LVOT Doppler LVOT Peak Gradient 5 mmHg LVOT Mean Gradient 3 mmHg LVOT VTI 26 cm LVOT Stroke Volume 87 ml LVOT CO 15.0 l/min LVOT CI 7.0 l/min/m2 Pulmonic Valve Name Value Normal PV Doppler PV Peak Gradient 3 mmHg Mitral Valve Name Value Normal MV Doppler MV Decel Merrick 269 cm/s2 MV PHT 68 ms MV Area (PHT) 3.2 cm2 4.0-5.0 MV Diastolic Function MV E Peak Velocity 63 cm/s MV A Peak Velocity 88 cm/s MV E/A 0.7 MV Decel Time 235 ms MV Annular TDI MV E/e' (Septal) 8.1 <=8.0 MV E/e' (Lateral) 6.7 <=8.0 MV E/e' (Average) 7.4 Tricuspid Valve Name Value Normal TV Regurgitation Doppler TR Peak Velocity 230 cm/s TR Peak Gradient 21 mmHg Estimated PAP/RSVP RA Pressure 3 mmHg <=5 PA Systolic Pressure 24 mmHg <36 RV Systolic Pressure 24 mmHg <36 Aorta Name Value Normal Ascending Aorta Ao Root Diameter (MM) 3.9 cm Ao Root Diam Index (MM) 1.8 cm/m2 Aortic Valve Name Value Normal AV Regurgitation 2D LVOT Area 3.3 cm2 AV Regurgitation Doppler AR Decel Time 2,189 ms AR Decel Merrick 179 cm/s2 AR PHT 635 ms Ventricles Name Value Normal LV Dimensions 2D/MM IVS Diastolic Thickness (2D) 0.9 cm 0.6-1.0 LVID Diastole (2D) 4.8 cm 4.2-5.8 LVIW Diastolic Thickness (2D) 1.0 cm 0.6-1.0 LVID Systole (2D) 3.4 cm 2.5-4.0 LVOT Diameter 2.0 cm LV Mass (2D Cubed) 154.58 g 88.00-224.00 LV Mass Index (2D Cubed) 72 g/m2 49-115 Relative Wall Thickness (2D) 0.40 LV Fractional Shortening/Ejection Fraction 2D/MM LV Fractional Shortening (2D) 30 % 25-43 LV EF (2D Teicholz) 57 % 52-72 LV Diastolic Volume (4C MOD) 152 ml LV EF (4C MOD) 64 % LV Diastolic Volume (2C MOD) 109 ml LV EF (2C MOD) 71 % LV Diastolic Volume (BP MOD) 130 ml 62-150 LV Diastolic Volume Index (BP MOD) 61 ml/m2 34-74 LV Systolic Volume (BP MOD) 42 ml 21-61 LV Systolic Volume Index (BP MOD) 20 ml/m2 11-31 LV EF (BP MOD) 68 % 52-72 LV Diastolic Length (4C) 8.5 cm LV Systolic Length (4C) 6.4 cm LV Stroke Volume (4C MOD) 97 ml RV Dimensions 2D/MM RVID Diastole (2D) 4.1 cm 2.5-3.5 Atria Name Value Normal LA Dimensions LA Dimension (MM) 3.2 cm 3.0-4.1 LA Volume (4C A-L) 69 ml LA Volume (BP A-L) 59 ml RA Dimensions RA Area (4C) 16.9 cm2 <=18.0 Report Signatures
--- NOTE | 2024-12-22 00:57 | ECG_ITS ---
Test Date: 2024-12-22 01:03:09 Measurements Intervals [place] Rate: 63 P: 24 TN: 142 QRS: 3 QRSD: 90 T: 51 QT: 412 QTc: 423 Interpretive Statements SINUS RHYTHM LOW QRS VOLTAGE IN PRECORDIAL LEADS BASELINE ARTIFACT- I, II, III, AVL BORDERLINE ECG Compared to ECG 12/21/2024 22:06:22 No significant changes Electronically Signed On 12-22-2024 05:42:17 CDT by Tam Romero D.O.
[2024-12-22 01:34] LABS: Troponin I < 0.012 ng/mL (0.000-0.034)
--- NOTE | 2024-12-22 01:56 | ADMGEN ---
This patient, Drew Alcaraz, was admitted to IMU Room 202-01 at 0142. Patient/family oriented to hospital policies and general routines including ID bracelet, bed and alarms, visiting hours, pain management, procedures, bathroom and other care routines, personal items, smoking policy, room service/diet, and visiting hours. Information on how to activate the Rapid Response Team has been discussed. Patient/Family are encouraged to report perceived risks to care and to ask questions if they do not understand what they are told or what they should do.
--- NOTE | 2024-12-22 02:58 | PM.IMHP ---
H&P: HPI History of Present Illness Date/Time: 12/22/24 02:58 Chief Complaint: 1. Chest discomfort 2. Dyspnea on exertion Narrative: Drew Alcaraz is an 79-year-old male with a medical history significant for prostate cancer, hypertension, GERD, obesity, dyslipidemia Over the last 4 weeks he has been experiencing worsening fatigue, malaise and and dyspnea; his symptoms are aggravated by exertion, alleviated by rest, associated with dyspnea with minimal-moderate exertion He denies associated symptoms of fevers, productive cough, hemoptysis, by pedal swelling, dizziness, wheezing or LOC. He over the leads to a semi-constant central chest discomfort which was washed postprandially. He does not smoke/chew tobacco, drink alcohol or consume recreational classes to drugs. Work-up findings: Vital signs are stable WBC 11; HGB 13.2; MCV 87; PO2 74 INR 1; PTT 13 NA 133; K 4.9; Cl 103; CO2 19; AG 11; BUN 52; CR 1.4; GFR 49 AST 30; ALT 20; ALP 47; T. bilirubin 0.6 Troponin < 0.012, 0.012, 0.012; BNP 396 ECG: NSR; PVCs; no evidence of ischemia Chest CTA: 1. No pulmonary embolism. 2. No acute cardiopulmonary. 3. Right thyroid nodule. Ultrasound evaluation advised. Drew Alcaraz will be admitted, evaluated, and managed for chest discomfort and dyspnea on exertion Review of Systems Review of Systems: All systems reviewed & are unremarkable except as noted in HPI and below PMFSH Past Medical History Medical History Umbilical hernia Obesity (BMI 30-39.9) Constipation Cardiomyopathy Prediabetes HLD (hyperlipidemia) Hypertension FH: radiation therapy Basal cell carcinoma of skin Squamous cell skin cancer Prostate cancer Surgical History Surgical History History of lumbar surgery History of prostate surgery History of total left knee replacement History of total right knee replacement (TKR) Family History Family History Father Diabetes mellitus Malignant neoplasm of prostate Mother Diabetes mellitus Sibling Diabetes mellitus Social History Social History Smoking packs per day: 1 Smoking cigarettes per day: 20.0 Years smoked: 20 Smoking pack-years: 20.00 Smoking status: Former smoker Tobacco type: cigarettes Second hand tobacco smoke exposure: Yes Smoking end date: 09/14/89 Alcohol intake: never Substance use: never Substance use type: does not use Do You Feel Safe in your Home?: Yes Lack of Transportation: No Lack of Food: Never True Current Housing: I Have Housing Concerned About Future Housing: No Difficulty Paying Gas/Electric Bills: No Difficulty Paying for Meds: No Currently Unemployed: No Education: Grade School Difficulty w/ Childcare or Family Care: No Living arrangements: with family Occupation/Education: retired Gender identity (if verbalized by the patient): Male Sexual Orientation (if Verbalized by the Patient): Straight or Heterosexual Spiritual care concerns: No Agree to blood products: Yes Meds Home Medications and Allergies Home Medications ?Medication ?Instructions ?Recorded ?Confirmed ?Type aspirin 81 mg tablet,delayed 81 mg PO HS 09/25/20 12/22/24 History release (Adult Aspirin Regimen) calcium 600 mg (as 1 cap PO DAILY 09/25/20 12/22/24 History carbonate)-vitamin D3 12.5 mcg (500 unit) capsule (Calcium with Vit D3) carvedilol 6.25 mg tablet 6.25 mg PO Q12H #180 tabs 04/11/24 12/22/24 Rx lisinopril 10 mg tablet See Rx Instructions .Route 10/08/24 12/22/24 Rx .COMPLEX #90 tabs omeprazole 20 mg capsule,delayed See Rx Instructions .Route 10/08/24 12/22/24 Rx release .COMPLEX #90 caps leuprolide acetate (6 month) 45 mg 45 mg IM [id number] 12/22/24 12/22/24 History intramuscular syringe kit (Lupron Depot) Allergies Allergy/AdvReac Type Severity Reaction Status Date / Time No Known Allergies Allergy Verified 12/22/24 02:07 Vital Signs Vital Signs - 24 hr 12/21/24 15:57 12/21/24 16:22 12/21/24 17:48 Temperature 98.2 F Pulse Rate 74 63 Respiratory Rate 16 16 Blood Pressure 122/51 L Pulse Oximetry 100 94 95 Oxygen Delivery Room Air Room Air 12/21/24 17:57 12/21/24 19:19 12/21/24 19:20 Temperature 98 F Pulse Rate 66 63 63 Respiratory Rate 19 15 Blood Pressure 114/62 130/58 L Pulse Oximetry 96 99 Oxygen Delivery 12/21/24 19:20 12/21/24 21:00 12/21/24 23:09 Temperature 98.1 F 97.6 F Pulse Rate 74 75 Respiratory Rate 14 17 Blood Pressure 120/62 115/52 L Pulse Oximetry 100 97 96 Oxygen Delivery Room Air 12/22/24 01:02 12/22/24 01:55 12/22/24 02:00 Temperature 97.8 F 97.7 F Pulse Rate 65 64 65 Respiratory Rate 16 16 Blood Pressure 106/49 L 130/54 L Pulse Oximetry 96 98 Oxygen Delivery Exam Const: General: comfortable HENMT: Ears: TM's normal bilaterally Face/Nose/Sinus: Normal nares present Eyes: General: appearance normal, both eyes and all related structures Sclera: sclerae normal Pupils: Equal, round and reactive pupils present Neck: Neck: supple Resp: Effort & Inspection: normal respiratory effort Auscultation: clear to auscultation bilaterally, crackles, rales and rhonchi Cardio: Rate: regular rate Rhythm: regular rhythm Skin: General skin exam: normal color Neuro: General: gait normal Motor exam (neuro): 5/5 motor strength present throughout, Normal motor muscle tone present throughout and Abnormal motor strength present Extrem: General: normal to inspection Psych: Mental Status: mental status grossly normal H&P: Results Labs Labs: Short CBC 12/21/24 Range/Units 16:20 WBC 11.8 H (4.5-10.0) K/mm3 Hgb 13.2 L (14.0-18.0) g/dL Hct 40.1 L (42.0-52.0) % Plt Count 274 (150-375) k/mm3 BMP 12/21/24 16:20 Sodium 133 L Potassium 4.9 Chloride 103 Carbon Dioxide 19 L BUN 52 H Creatinine 1.40 H Glucose 92 Calcium 9.8 Cardiac Enzymes 12/21/24 12/21/24 12/22/24 Range/Units 16:19 22:19 01:08 Troponin I < 0.012 < 0.012 < 0.012 (0.000-0.034) ng/mL Liver Function 04/09/25 Range/Units 16:20 Total Bilirubin 0.6 (0.2-1.3) mg/dL AST 30 (17-59) U/L ALT 20 (6-50) U/L Alkaline Phosphatase 47 (38-126) U/L Albumin 4.3 (3.5-5.1) g/dL Assessment and Plan Assessment and plan (1) Hypertension: Qualifiers: Hypertension type: essential hypertension Qualified Code(s): I10 - Essential (primary) hypertension Code(s): I10 - Essential (primary) hypertension Status: Acute (2) Cardiomyopathy: Code(s): I42.9 - Cardiomyopathy, unspecified Status: Acute (3) Chest pain: Qualifiers: Chest pain type: unspecified Qualified Code(s): R07.9 - Chest pain, unspecified Code(s): R07.9 - Chest pain, unspecified Status: Acute (4) HLD (hyperlipidemia): Qualifiers: Hyperlipidemia type: unspecified Qualified Code(s): E78.5 - Hyperlipidemia, unspecified Code(s): E78.5 - Hyperlipidemia, unspecified Status: Acute (5) Dyspnea on exertion: Code(s): R06.09 - Other forms of dyspnea Status: Acute Plan Acute and principal conditions 1. Chest pain/discomfort 2. Thyroid nodule, right 3. Dyspnea on exertion 4. Mildly elevated BNP Rx: A. Cardiology consult B. Telemonitoring C. Trend Troponin w/ECG D. probable stress testing/angiogram E. ECHO F. US thyroid Chronic and stable conditions 1. Prostate Ca. 2. Hypertension. 3. Obesity. 4. BCC 5. SCC 6. s/p bilateral TKA 7. Hx of CHFpEF. EF 63% in 06/2021 Miscellaneous care 1. Code status. Full 2. Nutrition. NPO 3. VTE prophylaxis. SCDs; [facility], [facility] Quality VTE Prophylaxis VTE prophylaxis: mechanical ordered and pharmacologic ordered Hospitalist MIPS Advance Care Plan I have confirmed that the patient's Advanced Care Plan is present, code status is documented, or surrogate decision maker is listed in patient medical record.: Yes Medication Reconciliation I have utilized all available resources to obtain, update and review the patients current medications (includes all prescriptions, OTC, herbals, cannabis, and nutritional supplements).: Yes The patient is not eligible for med reconciliation; the patient is in a emergent medical situation where delaying treatment would jeopardize the patients health.: Yes
[2024-12-22 04:38] LABS: Basophils Absolute Auto 0.1 K/mm3 (0.0-0.1); Basophils Percent Auto 1.5 % (0.2-1.2); Eosinophils Absolute Auto 0.2 K/mm3 (0-0.3); Eosinophils Percent Auto 2.4 % (0-4.4); Hematocrit 38.4 % (42.0-52.0); Hemoglobin 12.6 g/dL (14.0-18.0); Immature Granulocyte Absolute 0.13 K/mm3 (0.00-0.031); Immature Granulocyte Percent A 1.5 % (0-0.5); Lymphocytes Absolute Auto 2.48 K/mm3 (0.9-3.2); Lymphocytes Percent Auto 27.9 % (18.3-44.2); Mean Corpuscular HGB Conc 32.8 g/dl (32-36); Mean Corpuscular Hemoglobin 28.8 pg (26-34); Mean Corpuscular Volume 87.9 fl (80-100); Mean Platelet Volume 10.3 fl (7.4-10.4); Monocytes Absolute Auto 1.1 K/mm3 (0.1-0.6); Monocytes Percent Auto 12.2 % (2.6-8.5); Neutrophils Absolute Auto 4.9 K/mm3 (1.3-6.7); Neutrophils Percent Auto 54.5 % (45.5-73.1); Platelet Count Result 264 k/mm3 (150-375); Red Blood Count 4.37 M/mm3 (4.6-6.20); Red Cell Distribution Width 14.5 % (11.5-14.5); White Blood Count 8.9 K/mm3 (4.5-10.0)
[2024-12-22 04:46] LABS: Cholesterol 136 mg/dL (0-200); HDL Direct 32 mg/dL; Triglycerides 125 mg/dL (<150)
[2024-12-22 04:49] LABS: Alanine Aminotransferase 18 U/L (6-50); Albumin Level 3.7 g/dL (3.5-5.1); Alkaline Phosphatase 49 U/L (38-126); Anion Gap 8 mmol/L (4-12); Aspartate Amino Transferase 23 U/L (17-59); Bilirubin,Total 0.4 mg/dL (0.2-1.3); Blood Urea Nitrogen 44 mg/dL (9-20); Calcium 9.2 mg/dL (8.4-10.2); Carbon Dioxide 21 mmol/L (22-30); Chloride 106 mmol/L (98-107); Estimated CRCL calculation 43 ml/min; Estimated Glomerular Filt Rate 53; Glucose 121 mg/dL (65-110); Potassium 4.3 mmol/L (3.4-5.0); Sodium 135 mmol/L (137-145)
[2024-12-22 04:51] LABS: Hemoglobin A1C 5.7 % (<5.7)
[2024-12-22 04:57] LABS: LDL Cholesterol Direct 82 mg/dL
--- NOTE | 2024-12-22 05:01 | PC.NURSE ---
Patient reported that his chronic engel was replaced on 12/16/2024. Engel is due to be changed in office on 01/17/2025.
[2024-12-22 07:50] LABS: Magnesium 2.2 mg/dL (1.6-2.3)
[2024-12-22 08:58] LABS: Glucose Point of Care 111 mg/dl (65-105)
[2024-12-22] MEDS: carvediloL 6.25 MG TABLET PO ×2 (09:03→20:20)
[2024-12-22] MEDS: HEPARIN SODIUM 5,000 UNITS/ML VIAL 5000 UNITS SUB-Q ×2 (09:04→20:20)
[2024-12-22 09:08] LABS: Add Urine Microscopic? YES; Appearance Urine Cloudy (Clear); Bacteria Urine Rare /hpf; Bilirubin Urine Negative (Negative); Blood Urine Negative (Negative); Color Urine Yellow (Yellow); Glucose Urine UA Negative (Negative); Ketones Urine Negative (Negative); Leukocyte Esterase Ur 2+ LEU/UL (Negative); Need Manual Microscopic Reviewed; Nitrate Urine Negative (Negative); Non Pathogenic Casts 0-2; Protein Urine Trace mg/dL (Negative); RBC Urine 0-2 /hpf (0-2); Specific Grav Ur 1.025 (1.001-1.035); Squamous Epithelial Cell Urine None Seen /hpf (Few); Urobilinogen Urine 0.2 mg/dL (<2.0); WBC Urine 21-50 /hpf (0-3)
[2024-12-22] MEDS: ONDANSETRON INJ 4 MG/2 ML VIAL IV PUSH (09:17)
--- NOTE | 2024-12-22 10:25 | P.PNIM_ITS ---
Progress Note: A&P Assessment and Plan (1) Dyspnea on exertion: Code(s): R06.09 - Other forms of dyspnea Status: Acute Assessment and Plan: * Cardiology consulted, appreciate recommendations. * Echocardiogram showed: Summary 1. Left ventricular chamber dimension is normal. 2. Left ventricular systolic function is normal, estimated at 60-65%. 3. There is mildly increased left ventricular wall thickness. 4. The left ventricular diastolic function is grade I diastolic dysfunction. 5. Right ventricular chamber dimension is mildly enlarged. 6. Right ventricular systolic function is normal. 7. There is mild aortic valve regurgitation. 8. There is mild mitral valve regurgitation. 9. There is mild tricuspid valve regurgitation. 10. There is mild pulmonic regurgitation. 11. Normal inferior vena cava with >50% collapse upon inspiration consistent with normal right atrial pressure, 3 mmHg. * Check TSH, B12, Vitamin D, and iron panel. * NPO after midnight for stress test. (2) Chest pain: Qualifiers: Chest pain type: unspecified Qualified Code(s): R07.9 - Chest pain, unspecified Code(s): R07.9 - Chest pain, unspecified Status: Acute Assessment and Plan: * Denies chest pain at present. (3) Hypertension: Qualifiers: Hypertension type: essential hypertension Qualified Code(s): I10 - Essential (primary) hypertension Code(s): I10 - Essential (primary) hypertension Status: Acute Assessment and Plan: * Blood pressure 119/61. * Continue Coreg 6.25 mg PO q 12. (4) Thyroid nodule: Code(s): E04.1 - Nontoxic single thyroid nodule Status: Acute Assessment and Plan: * CTA of chest showed Large nodule in the right lobe of the thyroid. Ultrasound evaluation advised. * US neck/head ordered. Subjective Date/time seen: 12/22/24 10:25 Interval history: Patient sitting up in bed. Patient reports that after receiving contrast for CT that he could feel something in his neck and ears. No swelling or shortness of breath noted. Patient denies chest pain or palpitations. Patient reports shortness of breath at times. Review of Systems Review of Systems: All systems reviewed & are unremarkable except as noted in HPI and below Exam Const: General: no acute distress HENMT: Ears: TM abnormal wth effusion Resp: Effort & Inspection: normal respiratory effort Auscultation: clear to auscultation bilaterally Cardio: Rate: regular rate Rhythm: regular rhythm Other: Telemetry-SR 67. GI: GI Palp: Yes Soft to palpation Auscultation: normal bowel sounds Neuro: Speech: normal speech Extrem: General: no pedal edema Psych: Mental Status: mental status grossly normal Affect: normal affect Objective Data Vital Signs Vital Signs: Vital Signs - 24 hr 12/21/24 15:57 12/21/24 16:22 12/21/24 17:48 Temperature 98.2 F Pulse Rate 74 63 Respiratory Rate 16 16 Blood Pressure 122/51 L Pulse Oximetry 100 94 95 Oxygen Delivery Room Air Room Air 12/21/24 17:57 12/21/24 19:19 12/21/24 19:20 Temperature 98 F Pulse Rate 66 63 63 Respiratory Rate 19 15 Blood Pressure 114/62 130/58 L Pulse Oximetry 96 99 Oxygen Delivery 12/21/24 19:20 12/21/24 21:00 12/21/24 23:09 Temperature 98.1 F 97.6 F Pulse Rate 74 75 Respiratory Rate 14 17 Blood Pressure 120/62 115/52 L Pulse Oximetry 100 97 96 Oxygen Delivery Room Air 12/22/24 01:02 12/22/24 01:55 12/22/24 02:00 Temperature 97.8 F 97.7 F Pulse Rate 65 64 65 Respiratory Rate 16 16 Blood Pressure 106/49 L 130/54 L Pulse Oximetry 96 98 Oxygen Delivery 12/22/24 02:47 12/22/24 03:46 12/22/24 04:00 Temperature 97.8 F Pulse Rate 67 Respiratory Rate 16 Blood Pressure 110/46 L Pulse Oximetry 97 Oxygen Delivery Room Air Room Air 12/22/24 04:00 12/22/24 06:00 12/22/24 07:46 Temperature 97.6 F Pulse Rate 56 L 60 60 Respiratory Rate 18 Blood Pressure 100/51 L Pulse Oximetry 97 Oxygen Delivery 12/22/24 09:03 Temperature Pulse Rate 68 Respiratory Rate Blood Pressure Pulse Oximetry Oxygen Delivery Intake/Output Intake/Output: Intake & Output 12/19/24 12/20/24 12/21/24 12/22/24 23:59 23:59 23:59 23:59 Intake Total 500 Balance 500 Meds/Results Medications: Active Medications Generic Name Dose Route Start Last Admin Trade Name Freq PRN Reason Stop Dose Admin Acetaminophen 650 mg 12/22/24 02:57 Acetaminophen 325 Mg Tablet PO Q4H PRN Mild Pain (1-3) or Fever Aspirin 81 mg 12/22/24 21:00 Aspirin 81 Mg Enteric Tablet PO QHS SUJEY Carvedilol 6.25 mg 12/22/24 09:00 12/22/24 09:03 Carvedilol 6.25 Mg Tablet PO 6.25 mg Q12HR SUJEY Administration Heparin Sodium (Porcine) 5,000 units 12/22/24 09:00 12/22/24 09:04 Heparin Sodium 5,000 Units/Ml Vial SUB-Q 5,000 units Q12HR SUJEY Administration Ondansetron HCl 4 mg 12/22/24 09:10 12/22/24 09:17 Ondansetron Inj 4 Mg/2 Ml Vial IV PUSH 4 mg Q6H PRN Administration Nausea And Vomiting Perflutren Lipid Microsphere 0 ml 12/22/24 03:03 Perflutren Lipid Microspheres 1.5 Ml Vial Diluted To 10 Ml Total Volume IV PUSH 12/25/24 03:03 ONCE PRN adequate visualization Protocol Radiology Results: ITS Impressions Chest X-Ray 12/21/24 16:51 IMPRESSION: No acute cardiopulmonary pathology. Chest CTA 12/21/24 20:08 IMPRESSION: 1. No pulmonary embolism. 2. No acute cardiopulmonary. 3. Right thyroid nodule. Ultrasound evaluation advised. Labs Labs: Laboratory Results - last 24 hr 12/21/24 12/21/24 12/21/24 16:19 16:20 22:19 WBC 11.8 H RBC 4.58 L Hgb 13.2 L Hct 40.1 L MCV 87.6 MCH 28.8 MCHC 32.9 RDW 14.3 Plt Count 274 MPV 10.0 Immature Gran % (Auto) 1.4 H Neut % (Auto) 63.4 Lymph % (Auto) 24.5 [place] % (Auto) 8.6 H Eos % (Auto) 1.3 Baso % (Auto) 0.8 Lymph # (Auto) 2.90 [place] # (Auto) 1.0 H Eos # (Auto) 0.2 Baso # (Auto) 0.1 Abs Immat Gran (auto) 0.16 H Absolute Neuts (auto) 7.5 H Absolute Nucleated RBC 0.000 Nucleated RBC % 0.0 PT 13.7 INR 1.0 APTT 29.1 Sodium 133 L Potassium 4.9 Chloride 103 Carbon Dioxide 19 L Anion Gap 11 BUN 52 H Creatinine 1.40 H Estim Creat Clear Calc 40 Estimated GFR 49 L Glucose 92 POC Capillary Glucose Hemoglobin A1c Calcium 9.8 Magnesium Total Bilirubin 0.6 AST 30 ALT 20 Alkaline Phosphatase 47 Troponin I < 0.012 < 0.012 NT-Pro-B Natriuret Pep 396 H Total Protein 8.0 Albumin 4.3 Triglycerides Cholesterol LDL Cholesterol Direct HDL Direct Urine Color Urine Appearance Urine pH Ur Specific [place] Urine Protein Urine Glucose (UA) Urine Ketones Ur Blood (Man) Urine Nitrate Urine Bilirubin Urine Urobilinogen Ur Leukocyte Esterase Add Ur Microanalysis Urine RBC Urine WBC Ur Squamous Epith Cells Urine Bacteria Urine Casts 12/22/24 12/22/24 12/22/24 01:08 03:50 03:54 WBC 8.9 RBC 4.37 L Hgb 12.6 L Hct 38.4 L MCV 87.9 MCH 28.8 MCHC 32.8 RDW 14.5 Plt Count 264 MPV 10.3 Immature Gran % (Auto) 1.5 H Neut % (Auto) 54.5 Lymph % (Auto) 27.9 [place] % (Auto) 12.2 H Eos % (Auto) 2.4 Baso % (Auto) 1.5 H Lymph # (Auto) 2.48 [place] # (Auto) 1.1 H Eos # (Auto) 0.2 Baso # (Auto) 0.1 Abs Immat Gran (auto) 0.13 H Absolute Neuts (auto) 4.9 Absolute Nucleated RBC 0.000 Nucleated RBC % 0.0 PT INR APTT Sodium 135 L Potassium 4.3 Chloride 106 Carbon Dioxide 21 L Anion Gap 8 BUN 44 H Creatinine 1.29 Estim Creat Clear Calc 43 Estimated GFR 53 L Glucose 121 H POC Capillary Glucose Hemoglobin A1c 5.7 Calcium 9.2 Magnesium 2.2 Total Bilirubin 0.4 AST 23 ALT 18 Alkaline Phosphatase 49 Troponin I < 0.012 NT-Pro-B Natriuret Pep Total Protein 7.0 Albumin 3.7 Triglycerides 125 Cholesterol 136 LDL Cholesterol Direct 82 HDL Direct 32 Urine Color Urine Appearance Urine pH Ur Specific [place] Urine Protein Urine Glucose (UA) Urine Ketones Ur Blood (Man) Urine Nitrate Urine Bilirubin Urine Urobilinogen Ur Leukocyte Esterase Add Ur Microanalysis Urine RBC Urine WBC Ur Squamous Epith Cells Urine Bacteria Urine Casts 12/22/24 12/22/24 08:48 08:55 WBC RBC Hgb Hct MCV MCH MCHC RDW Plt Count MPV Immature Gran % (Auto) Neut % (Auto) Lymph % (Auto) [place] % (Auto) Eos % (Auto) Baso % (Auto) Lymph # (Auto) [place] # (Auto) Eos # (Auto) Baso # (Auto) Abs Immat Gran (auto) Absolute Neuts (auto) Absolute Nucleated RBC Nucleated RBC % PT INR APTT Sodium Potassium Chloride Carbon Dioxide Anion Gap BUN Creatinine Estim Creat Clear Calc Estimated GFR Glucose POC Capillary Glucose 111 H Hemoglobin A1c Calcium Magnesium Total Bilirubin AST ALT Alkaline Phosphatase Troponin I NT-Pro-B Natriuret Pep Total Protein Albumin Triglycerides Cholesterol LDL Cholesterol Direct HDL Direct Urine Color Yellow Urine Appearance Cloudy H Urine pH 5.0 Ur Specific [place] 1.025 Urine Protein Trace Urine Glucose (UA) Negative Urine Ketones Negative Ur Blood (Man) Negative Urine Nitrate Negative Urine Bilirubin Negative Urine Urobilinogen 0.2 Ur Leukocyte Esterase 2+ H Add Ur Microanalysis Reviewed Urine RBC 0-2 Urine WBC 21-50 H Ur Squamous Epith Cells None seen Urine Bacteria Rare Urine Casts 0-2 Quality VTE Prophylaxis VTE prophylaxis: mechanical ordered and pharmacologic ordered
--- NOTE | 2024-12-22 10:29 | P.CONCA_ITS ---
Assessment and Plan Assessment and plan (1) Shortness of breath: Code(s): R06.02 - Shortness of breath Status: Acute Assessment and Plan: Presents with 6 weeks of exertional dyspnea and shortness of breath at rest. Clinically he does not have evidence of heart failure. Furthermore, his chest Xray does not demonstrate any pulmonary edema or pleural effusions. His BNP does not indicate CHF (396). Therefore, I do not think his shortness of breath is because of a cardiac etiology. Echo is pending and will be reviewed. If echo is unremarkable cardiology will sign off. Other workup for etiology of shortness of breath per hospitalist service. (2) Hypertension: Qualifiers: Hypertension type: essential hypertension Qualified Code(s): I10 - Essential (primary) hypertension Code(s): I10 - Essential (primary) hypertension Status: Acute Assessment and Plan: Blood pressure at goal (3) HLD (hyperlipidemia): Qualifiers: Hyperlipidemia type: unspecified Qualified Code(s): E78.5 - Hyperlipidemia, unspecified Code(s): E78.5 - Hyperlipidemia, unspecified Status: Acute Assessment and Plan: Lipids at goal. History of Present Illness History of Present Illness Consult date/time: 12/22/24 10:29 Requesting physician: Rosana Toro PA-C Consult reason: congestive heart failure Reason For Visit: Chest pain Narrative: Drew Najera is an 79-year-old male who comes to the hospital with a chief complaint of shortness of breath. Cardiology is consulted because of CHF. Patient states that he began having shortness of breath about 6 weeks ago that became progressively worse. Shortness of breath was worse with exertion. He denies any chest pain but does state that he ?felt like a brick was laying on his chest? at all times. He denies lower extremity swelling, orthopnea, palpitations, syncope. He is feeling better after receiving IV lasix. Review of Systems 2 Review of Systems: All systems reviewed & are unremarkable except as noted in HPI and below PMFSH Past Medical History Medical History Umbilical hernia Obesity (BMI 30-39.9) Constipation Cardiomyopathy Prediabetes HLD (hyperlipidemia) Hypertension FH: radiation therapy Basal cell carcinoma of skin Squamous cell skin cancer Prostate cancer Surgical History Surgical History History of lumbar surgery History of prostate surgery History of total left knee replacement History of total right knee replacement (TKR) Family History Family History Father Diabetes mellitus Malignant neoplasm of prostate Mother Diabetes mellitus Sibling Diabetes mellitus Social History Social History Smoking packs per day: 1 Smoking cigarettes per day: 20.0 Years smoked: 20 Smoking pack-years: 20.00 Smoking status: Former smoker Tobacco type: cigarettes Second hand tobacco smoke exposure: Yes Smoking end date: 09/14/89 Alcohol intake: never Substance use: never Substance use type: does not use Do You Feel Safe in your Home?: Yes Lack of Transportation: No Lack of Food: Never True Current Housing: I Have Housing Concerned About Future Housing: No Difficulty Paying Gas/Electric Bills: No Difficulty Paying for Meds: No Currently Unemployed: No Education: Grade School Difficulty w/ Childcare or Family Care: No Living arrangements: with family Occupation/Education: retired Gender identity (if verbalized by the patient): Male Sexual Orientation (if Verbalized by the Patient): Straight or Heterosexual Spiritual care concerns: No Agree to blood products: Yes Meds Home Medications and Allergies Home Medications ?Medication ?Instructions ?Recorded ?Confirmed ?Type aspirin 81 mg tablet,delayed 81 mg PO HS 09/25/20 12/22/24 History release (Adult Aspirin Regimen) calcium 600 mg (as 1 cap PO DAILY 09/25/20 12/22/24 History carbonate)-vitamin D3 12.5 mcg (500 unit) capsule (Calcium with Vit D3) carvedilol 6.25 mg tablet 6.25 mg PO Q12H #180 tabs 04/11/24 12/22/24 Rx lisinopril 10 mg tablet See Rx Instructions .Route 10/08/24 12/22/24 Rx .COMPLEX #90 tabs omeprazole 20 mg capsule,delayed See Rx Instructions .Route 10/08/24 12/22/24 Rx release .COMPLEX #90 caps leuprolide acetate (6 month) 45 mg 45 mg IM [id number] 12/22/24 12/22/24 History intramuscular syringe kit (Lupron Depot) Allergies Allergy/AdvReac Type Severity Reaction Status Date / Time No Known Allergies Allergy Verified 12/22/24 02:07 Vital Signs Vital Signs - 24 hr 12/21/24 15:57 12/21/24 16:22 12/21/24 17:48 Temperature 36.8 C Pulse Rate 74 63 Respiratory Rate 16 16 Blood Pressure 122/51 L Pulse Oximetry 100 94 95 Oxygen Delivery Room Air Room Air 12/21/24 17:57 12/21/24 19:19 12/21/24 19:20 Temperature 36.6 C Pulse Rate 66 63 63 Respiratory Rate 19 15 Blood Pressure 114/62 130/58 L Pulse Oximetry 96 99 Oxygen Delivery 12/21/24 19:20 12/21/24 21:00 12/21/24 23:09 Temperature 36.7 C 36.4 C Pulse Rate 74 75 Respiratory Rate 14 17 Blood Pressure 120/62 115/52 L Pulse Oximetry 100 97 96 Oxygen Delivery Room Air 12/22/24 01:02 12/22/24 01:55 12/22/24 02:00 Temperature 36.6 C 36.5 C Pulse Rate 65 64 65 Respiratory Rate 16 16 Blood Pressure 106/49 L 130/54 L Pulse Oximetry 96 98 Oxygen Delivery 12/22/24 02:47 12/22/24 03:46 12/22/24 04:00 Temperature 36.6 C Pulse Rate 67 Respiratory Rate 16 Blood Pressure 110/46 L Pulse Oximetry 97 Oxygen Delivery Room Air Room Air 12/22/24 04:00 12/22/24 06:00 12/22/24 07:46 Temperature 36.4 C Pulse Rate 56 L 60 60 Respiratory Rate 18 Blood Pressure 100/51 L Pulse Oximetry 97 Oxygen Delivery 12/22/24 09:03 Temperature Pulse Rate 68 Respiratory Rate Blood Pressure Pulse Oximetry Oxygen Delivery Exam 2 Const: General: comfortable, no acute distress, alert and awake O rientation/consciousness: patient oriented x3 HENMT: Head: normal to inspection Eyes: General: appearance normal, both eyes and all related structures P upils: Equal, round and reactive pupils present Neck: Neck: normal visual inspection, supple and no JVD Carotids: normal carotid upstroke Resp: Effort & Inspection: normal respiratory effort Auscultation: clear to auscultation bilaterally Cardio: Rate: regular rate Rhythm: regular rhythm Heart sounds: S1 normal heart sound present, S2 normal heart sound present and no murmurs GI: Auscultation: normal bowel sounds Skin: General skin exam: normal color Neuro: General: patient oriented x3 Cranial nerves: Yes Equal, round and reactive pupils present Extrem: General: normal to inspection Psych: Appearance: grossly normal Mental Status: mental status grossly normal Results Labs and Meds 12/22/24 03:54 12/22/24 03:54 Lab results: Cardiac Enzymes 12/21/24 12/21/24 12/21/24 Range/Units 16:19 16:20 22:19 AST 30 (17-59) U/L Troponin I < 0.012 < 0.012 (0.000-0.034) ng/mL 12/22/24 12/22/24 Range/Units 01:08 03:54 AST 23 (17-59) U/L Troponin I < 0.012 (0.000-0.034) ng/mL Coagulation 12/21/24 Range/Units 16:20 PT 13.7 (11.1-14.7) Seconds APTT 29.1 (22.3-36.8) Seconds Lipids 12/22/24 Range/Units 03:54 Triglycerides 125 (<150) mg/dL Cholesterol 136 (0-200) mg/dL CBC 12/21/24 12/22/24 Range/Units 16:20 03:54 WBC 11.8 H 8.9 (4.5-10.0) K/mm3 RBC 4.58 L 4.37 L (4.6-6.20) M/mm3 Hgb 13.2 L 12.6 L (14.0-18.0) g/dL Hct 40.1 L 38.4 L (42.0-52.0) % Plt Count 274 264 (150-375) k/mm3 Lymph # (Auto) 2.90 2.48 (0.9-3.2) K/mm3 [place] # (Auto) 1.0 H 1.1 H (0.1-0.6) K/mm3 Eos # (Auto) 0.2 0.2 (0-0.3) K/mm3 Baso # (Auto) 0.1 0.1 (0.0-0.1) K/mm3 Comprehensive Metabolic Panel 12/21/24 12/22/24 Range/Units 16:20 03:54 Sodium 133 L 135 L (137-145) mmol/L Potassium 4.9 4.3 (3.4-5.0) mmol/L Chloride 103 106 (98-107) mmol/L Carbon Dioxide 19 L 21 L (22-30) mmol/L BUN 52 H 44 H (9-20) mg/dL Creatinine 1.40 H 1.29 (0.7-1.3) mg/dL Glucose 92 121 H (65-110) mg/dL Calcium 9.8 9.2 (8.4-10.2) mg/dL AST 30 23 (17-59) U/L ALT 20 18 (6-50) U/L Alkaline Phosphatase 47 49 (38-126) U/L Total Protein 8.0 7.0 (6.3-8.2) g/dL Albumin 4.3 3.7 (3.5-5.1) g/dL Intake and Output 12/21/24 12/22/24 12/22/24 23:59 07:59 15:59 Intake Total 500 Balance 500 Intake: IV 500 Sodium Chloride 0.9% IV 500 ml 500 @ 999 mls/hr IV CONT .Q31M STA Rx#:[id number] Other: Number of Bowel Movements Today 1 Patient Weight 12/22/24 23:59 Weight 91.1 kg
[2024-12-22] MEDS: ACETAMINOPHEN 325 MG TABLET 650 MG PO (10:53)
[2024-12-22] MEDS: LORATADINE 10 MG TABLET PO (10:53)
[2024-12-22 18:00] LABS: Vitamin D 25 Hydroxy 64.5 ng/mL
[2024-12-22 18:13] LABS: Iron 46 ug/dL (49-181)
[2024-12-22 18:23] LABS: Percent Iron Saturation 17 % (20-50)
[2024-12-22 18:45] LABS: Thyroid Stimulating Hormone Reflex 0.541 uIU/mL (0.465-4.68)
[2024-12-22] MEDS: ASPIRIN 81 MG ENTERIC TABLET PO (20:20)
[2024-12-23] VITALS (11 sets, daily range): BP systolic 112–125; BP diastolic 51–79; PULSE 60–76; RESP 16–18; TEMP 36.6–36.9; O2SAT 96–98
[2024-12-23 05:16] LABS: Basophils Absolute Auto 0.1 K/mm3 (0.0-0.1); Eosinophils Absolute Auto 0.3 K/mm3 (0-0.3); Hematocrit 37.2 % (42.0-52.0); Hemoglobin 12.2 g/dL (14.0-18.0); Immature Granulocyte Absolute 0.12 K/mm3 (0.00-0.031); Immature Granulocyte Percent A 1.4 % (0-0.5); Lymphocytes Absolute Auto 2.75 K/mm3 (0.9-3.2); Lymphocytes Percent Auto 31.6 % (18.3-44.2); Mean Corpuscular HGB Conc 32.8 g/dl (32-36); Mean Corpuscular Hemoglobin 28.9 pg (26-34); Mean Corpuscular Volume 88.2 fl (80-100); Mean Platelet Volume 10.2 fl (7.4-10.4); Neutrophils Absolute Auto 4.5 K/mm3 (1.3-6.7); Platelet Count Result 244 k/mm3 (150-375); Red Blood Count 4.22 M/mm3 (4.6-6.20); Red Cell Distribution Width 14.4 % (11.5-14.5); White Blood Count 8.7 K/mm3 (4.5-10.0)
[2024-12-23 05:31] LABS: Alanine Aminotransferase 16 U/L (6-50); Albumin Level 3.5 g/dL (3.5-5.1); Alkaline Phosphatase 41 U/L (38-126); Anion Gap 7 mmol/L (4-12); Aspartate Amino Transferase 23 U/L (17-59); Bilirubin,Total 0.6 mg/dL (0.2-1.3); Blood Urea Nitrogen 33 mg/dL (9-20); Calcium 8.9 mg/dL (8.4-10.2); Carbon Dioxide 23 mmol/L (22-30); Chloride 106 mmol/L (98-107); Estimated CRCL calculation 46 ml/min; Estimated Glomerular Filt Rate 58; Glucose 96 mg/dL (65-110); Magnesium 2.1 mg/dL (1.6-2.3); Potassium 4.6 mmol/L (3.4-5.0); Sodium 136 mmol/L (137-145)
--- NOTE | 2024-12-23 09:00 | EST_ITS ---
Patient Info Name: Drew Alcaraz Age: 79 years : 1945 Gender: Male Ht: 71 in Wt: 200 lbs BSA: 2.15 m2 HR: 64 bpm BP: 126 / 64 mmHg Exam Date: 12/23/2024 9:06 AM Exam Location: Echo Lab Patient Status: Inpatient Admit Date: 12/22/2024 Staff Ordering Physician: Amanda Person Attending Provider: Dahlia Dumont APRN Exercise Technologist: palmira Nurse: Amanda Person APN Exam Type: CA stress taz w NM Study Info A regadenoson stress test was performed. Summary 1. No abnormal ST/T wave changes diagnostic of ischemia with Lexiscan. 2. Please correlate with nuclear medicine images, reported separately. 3. Stress test supervised by Amanda Person NP. Stress test interpreted by Hiram Elizabeth MD. Protocol: Lexiscan Stress ECG Details Stage: REST Duration (min): 0 min : 37 sec HR (bpm): 71 SBP (mmHg): --- DBP (mmHg): --- Stage: REST Duration (min): 1 min : 26 sec HR (bpm): 63 SBP (mmHg): 126 DBP (mmHg): 64 Stage: REST Duration (min): 9 min : 29 sec HR (bpm): 72 SBP (mmHg): 126 DBP (mmHg): 64 Stage: STAGE 1 Duration (min): 1 min : 0 sec HR (bpm): 86 SBP (mmHg): 121 DBP (mmHg): 86 Stage: RECOVERY Duration (min): 1 min : 0 sec HR (bpm): 96 SBP (mmHg): 121 DBP (mmHg): 86 Stage: RECOVERY Duration (min): 2 min : 0 sec HR (bpm): 91 SBP (mmHg): 121 DBP (mmHg): 86 Stage: RECOVERY Duration (min): 3 min : 0 sec HR (bpm): 83 SBP (mmHg): 186 DBP (mmHg): 77 Stage: RECOVERY Duration (min): 3 min : 25 sec HR (bpm): 114 SBP (mmHg): 186 DBP (mmHg): 77 Rest HR: 72 bpm Peak HR: 112 bpm Rest Sys BP: 126 mmHg Peak Sys BP: 186 mmHg Max Pred HR: 139 bpm % Max Pred HR: 81 % Target HR: 118 bpm Max RPP: 20,832 bpm*mmHg Total Time: 1 min : 0 sec Rest [place] BP: 64 mmHg Peak [place] BP: 77 mmHg Total Dose: 0.4 mg Resting ECG Sinus rhythm. Stress ECG No abnormal ST/T wave changes diagnostic of ischemia with Lexiscan. Report Signatures
--- NOTE | 2024-12-23 09:25 | PM.PNCARD ---
Progress Note: A&P Assessment and Plan (1) Shortness of breath: Code(s): R06.02 - Shortness of breath Status: Acute Assessment and Plan: Presents with 6 weeks of exertional dyspnea and shortness of breath at rest. Clinically he does not have evidence of heart failure. Furthermore, his chest Xray does not demonstrate any pulmonary edema or pleural effusions. His BNP does not indicate CHF (396). Therefore, I do not think his shortness of breath is because of a cardiac etiology. Echocardiogram showed normal LV function, grade 1 diastolic dysfunction, normal RA pressure. Lexiscan performed this morning because of complaint chest heaviness. Further recommendations to follow review of results when available. Other workup for etiology of shortness of breath per hospitalist service. (2) Hypertension: Qualifiers: Hypertension type: essential hypertension Qualified Code(s): I10 - Essential (primary) hypertension Code(s): I10 - Essential (primary) hypertension Status: Acute Assessment and Plan: Blood pressure at goal (3) HLD (hyperlipidemia): Qualifiers: Hyperlipidemia type: unspecified Qualified Code(s): E78.5 - Hyperlipidemia, unspecified Code(s): E78.5 - Hyperlipidemia, unspecified Status: Acute Assessment and Plan: Lipids at goal. Subjective Date/time seen: 12/23/24 09:25 Interval history: Cardiology follow-up visit Patient states that he is feeling better today. He denies any shortness of breath. Denies chest pain, palpitations. Review of Systems Review of Systems: All systems reviewed & are unremarkable except as noted in HPI and below Exam Const: General: comfortable, no acute distress, alert and awake Orientation/consciousness: patient oriented x3 HENMT: Head: normal to inspection Eyes: General: appearance normal, both eyes and all related structures Pupils: Equal, round and reactive pupils present Neck: Neck: normal visual inspection, supple and no JVD Carotids: normal carotid upstroke Resp: Effort & Inspection: normal respiratory effort Auscultation: clear to auscultation bilaterally Cardio: Rate: regular rate Rhythm: regular rhythm Heart sounds: S1 normal heart sound present, S2 normal heart sound present and no murmurs GI: Auscultation: normal bowel sounds Skin: General skin exam: normal color Neuro: General: patient oriented x3 Cranial nerves: Yes Equal, round and reactive pupils present Extrem: General: normal to inspection Psych: Appearance: grossly normal Mental Status: mental status grossly normal Objective Data Vital Signs Vital Signs: Vital Signs - 24 hr 12/22/24 11:31 12/22/24 12:00 12/22/24 14:00 Temperature 36.3 C L Pulse Rate 61 48 L 70 Respiratory Rate 20 Blood Pressure 119/61 Pulse Oximetry 97 Oxygen Delivery 12/22/24 16:00 12/22/24 16:00 12/22/24 16:00 Temperature 36.7 C Pulse Rate 64 69 Respiratory Rate 18 Blood Pressure 98/48 L Pulse Oximetry 95 Oxygen Delivery Room Air 12/22/24 18:00 12/22/24 20:00 12/22/24 20:00 Temperature 36.6 C Pulse Rate 89 68 Respiratory Rate 22 H Blood Pressure 131/49 L Pulse Oximetry 100 Oxygen Delivery Room Air 12/22/24 20:00 12/22/24 20:20 12/22/24 22:00 Temperature Pulse Rate 77 73 79 Respiratory Rate Blood Pressure Pulse Oximetry Oxygen Delivery 12/23/24 00:00 12/23/24 00:00 12/23/24 00:00 Temperature 36.6 C Pulse Rate 64 60 Respiratory Rate 16 Blood Pressure 112/58 L Pulse Oximetry 97 Oxygen Delivery Room Air 12/23/24 02:00 12/23/24 04:00 12/23/24 04:00 Temperature 36.9 C Pulse Rate 62 60 Respiratory Rate 16 Blood Pressure 112/51 L Pulse Oximetry 97 Oxygen Delivery Room Air 12/23/24 04:00 12/23/24 06:00 12/23/24 07:51 Temperature 36.7 C Pulse Rate 60 65 62 Respiratory Rate 18 Blood Pressure 125/53 L Pulse Oximetry 96 Oxygen Delivery Intake/Output Intake/Output: Intake & Output 12/20/24 12/21/24 12/22/24 12/23/24 23:59 23:59 23:59 23:59 Intake Total 500 240 500 Output Total 1000 Balance 500 240 -500 Meds/Results Medications: Active Medications Generic Name Dose Route Start Last Admin Trade Name Freq PRN Reason Stop Dose Admin Acetaminophen 650 mg 12/22/24 02:57 12/22/24 10:53 Acetaminophen 325 Mg Tablet PO 650 mg Q4H PRN Administration Mild Pain (1-3) or Fever Aspirin 81 mg 12/22/24 21:00 12/22/24 20:20 Aspirin 81 Mg Enteric Tablet PO 81 mg QHS SUJEY Administration Carvedilol 6.25 mg 12/22/24 09:00 12/22/24 20:20 Carvedilol 6.25 Mg Tablet PO 6.25 mg Q12HR SUJEY Administration Heparin Sodium (Porcine) 5,000 units 12/22/24 09:00 12/22/24 20:20 Heparin Sodium 5,000 Units/Ml Vial SUB-Q 5,000 units Q12HR SUJEY Administration Loratadine 10 mg 12/22/24 10:30 12/22/24 10:53 Loratadine 10 Mg Tablet PO 10 mg QAM SUJEY Administration Ondansetron HCl 4 mg 12/22/24 09:10 12/22/24 09:17 Ondansetron Inj 4 Mg/2 Ml Vial IV PUSH 4 mg Q6H PRN Administration Nausea And Vomiting Perflutren Lipid Microsphere 0 ml 12/22/24 03:03 Perflutren Lipid Microspheres 1.5 Ml Vial Diluted To 10 Ml Total Volume IV PUSH 12/25/24 03:03 ONCE PRN adequate visualization Protocol Radiology Results: ITS Impressions Chest X-Ray 12/21/24 16:51 IMPRESSION: No acute cardiopulmonary pathology. Chest CTA 12/21/24 20:08 IMPRESSION: 1. No pulmonary embolism. 2. No acute cardiopulmonary. 3. Right thyroid nodule. Ultrasound evaluation advised. Head/Neck Ultrasound 12/22/24 15:46 IMPRESSION: 1. Multinodular goiter. No significant interval change in a 4.5 cm TI-RADS 4 mass at the right thyroid lobe which when correlated with prior imaging appears to be comprised of 2 separate nodules and which is unchanged. Given patient's age and over 12 years of stability, biopsy is likely unnecessary. Labs Labs: Laboratory Results - last 24 hr 12/22/24 12/23/24 03:50 04:36 WBC 8.7 RBC 4.22 L Hgb 12.2 L Hct 37.2 L MCV 88.2 MCH 28.9 MCHC 32.8 RDW 14.4 Plt Count 244 MPV 10.2 Immature Gran % (Auto) 1.4 H Neut % (Auto) 52.0 Lymph % (Auto) 31.6 [place] % (Auto) 11.0 H Eos % (Auto) 3.0 Baso % (Auto) 1.0 Lymph # (Auto) 2.75 [place] # (Auto) 1.0 H Eos # (Auto) 0.3 Baso # (Auto) 0.1 Abs Immat Gran (auto) 0.12 H Absolute Neuts (auto) 4.5 Absolute Nucleated RBC 0.000 Nucleated RBC % 0.0 Sodium 136 L Potassium 4.6 Chloride 106 Carbon Dioxide 23 Anion Gap 7 BUN 33 H D Creatinine 1.20 Estim Creat Clear Calc 46 Estimated GFR 58 L Glucose 96 Calcium 8.9 Magnesium 2.1 Iron 46 L TIBC 271 % Saturation 17 L Total Bilirubin 0.6 AST 23 ALT 16 Alkaline Phosphatase 41 Total Protein 6.0 L Albumin 3.5 Vitamin B12 303.0 Vitamin D 25-Hydroxy 64.5 TSH (Reflex) 0.541 Quality VTE Prophylaxis VTE prophylaxis: mechanical ordered and pharmacologic ordered
[2024-12-23] MEDS: carvediloL 6.25 MG TABLET PO (10:29)
[2024-12-23] MEDS: HEPARIN SODIUM 5,000 UNITS/ML VIAL 5000 UNITS SUB-Q (10:31)
[2024-12-23] MEDS: LORATADINE 10 MG TABLET PO (10:31)
--- NOTE | 2024-12-23 13:34 | PC.NURSE ---
On 12/23/24, the student, [Joellen Ching], provided care and completed [facility] documentation on this patient. I have reviewed the student's documentation and agree with the findings.
--- NOTE | 2024-12-23 14:54 | P.DS_ITS ---
DS: Admitting Diagnosis Discharge Date 12/23/24 Admitting Diagnosis Hypertension Cardiomyopathy Chest pain Hyperlipidemia Dyspnea on exertion DS: Discharge Diagnosis Discharge Diagnosis (1) Dyspnea on exertion: Code(s): R06.09 - Other forms of dyspnea Status: Acute (2) Chest pain: Qualifiers: Chest pain type: unspecified Qualified Code(s): R07.9 - Chest pain, unspecified Code(s): R07.9 - Chest pain, unspecified Status: Acute (3) Hypertension: Qualifiers: Hypertension type: essential hypertension Qualified Code(s): I10 - Essential (primary) hypertension Code(s): I10 - Essential (primary) hypertension Status: Acute (4) Thyroid nodule: Code(s): E04.1 - Nontoxic single thyroid nodule Status: Acute DS: Summary Hospital Course Reason for hospitalization: Hypertension Cardiomyopathy Chest pain Hyperlipidemia Dyspnea on exertion Hospital Course: Final diagnosis: Dyspnea Status at Discharge Cognitive/behavioral status at discharge: Alert oriented x4 Functional status at discharge: independent ambulation Overall status at discharge: patient is progressing back to baseline Time Spent with Patient Time attestation: Total time spent providing and/or coordinating discharge services: Time spent: Greater than 30 minutes Exam Narrative: General: In no acute distress, well nourished Head: atraumatic, no encephalopathy Eyes: PERRLA, sclera clear ENT: moist mucous membranes, nasal passages clear Neck: supple, no JVD, no adenopathy, trachea midline Cardiac: Normal S1 and S2. RRR, No murmur, gallops or friction rubs, peripheral pulses intact. Respiratory: Lungs clear to auscultation, no adventitious lung sounds, currently on room air Gastrointestinal: soft, non-distended, non-tender, normoactive bowel sounds. : voiding without difficulty. Extremities: moves all extremities well, no edema Skin: clean, dry, intact. No wounds or lesions. Neuro: Alert and oriented x4, cranial nerves intact, no neuro deficits. Psych: normal mood, normal affect, interactive DS: Data Data Completed and Pending Completed studies during hospitalization: Lexiscan stress test Head/neck ultrasound Chest CTA Chest x-ray Pending studies at discharge: None Labs on day of discharge: Labs from last 24 hours 12/23/24 12/22/24 04:36 03:50 WBC 8.7 RBC 4.22 L Hgb 12.2 L Hct 37.2 L MCV 88.2 MCH 28.9 MCHC 32.8 RDW 14.4 Plt Count 244 MPV 10.2 Immature Gran % (Auto) 1.4 H Neut % (Auto) 52.0 Lymph % (Auto) 31.6 [place] % (Auto) 11.0 H Eos % (Auto) 3.0 Baso % (Auto) 1.0 Lymph # (Auto) 2.75 [place] # (Auto) 1.0 H Eos # (Auto) 0.3 Baso # (Auto) 0.1 Abs Immat Gran (auto) 0.12 H Absolute Neuts (auto) 4.5 Absolute Nucleated RBC 0.000 Nucleated RBC % 0.0 Sodium 136 L Potassium 4.6 Chloride 106 Carbon Dioxide 23 Anion Gap 7 BUN 33 H D Creatinine 1.20 Estim Creat Clear Calc 46 Estimated GFR 58 L Glucose 96 Calcium 8.9 Magnesium 2.1 Iron 46 L TIBC 271 % Saturation 17 L Total Bilirubin 0.6 AST 23 ALT 16 Alkaline Phosphatase 41 Total Protein 6.0 L Albumin 3.5 Vitamin B12 303.0 Vitamin D 25-Hydroxy 64.5 TSH (Reflex) 0.541 Procedures/Treatments: Lexiscan stress test Discharge Plan Discharge Attending physician on discharge: Federico Perez Consulting providers: Hiram Elizabeth Discharging Clinician: Dahlia Dumont Anticipated Discharge Date/Time: 12/23/24 14:47 Patient Disposition: Home Activity: as tolerated Diet: as tolerated and regular Discharge Instructions: * Lexiscan shown normal heart perfusion and was essentially normal. Your shortness of breath is not coming from a cardiac origin. * Your Chest CTA was negative for pulmonary embolism. * Follow up with your primary care doctor in 1 week. Get referral to pharmacy resource tech to get pulmonary function test considering you have history of smoking. You may have some underlying emphysema/COPD. * I prescribed you an albuterol inhaler to use as needed for shortness of breath. Please do not overuse this medication. Take it as prescribed. * Continue to take Claritin for seasonal allergies Patient Instructions: Albuterol (By breathing), Dyspnea (DC) Patient Language: [place] Stand Alone Forms: General Discharge Information Follow-up/Referrals: Kirk Urena MD [Physician] - 2 Weeks (PFT) Discharge Medications: New loratadine 10 mg Tablet 10 mg PO QAM Qty: 30 0RF Continued aspirin [Adult Aspirin Regimen] 81 mg tablet,delayed release (DR/EC) 81 mg PO HS calcium carbonate-vitamin D3 [Calcium 600 with Vitamin D3] 600 mg(1,500mg) - 500 unit capsule 1 cap PO DAILY Lupron Depot (6 Month) 45 mg syringe kit 45 mg IM [id number] Patient Comments: Patient due for medication 01/17/2025 carvedilol 6.25 mg tablet 6.25 mg PO Q12H Qty: 180 2RF Rx Instructions: must administer with a meal/food lisinopril 10 mg tablet See Rx Instructions .ROUTE .COMPLEX Qty: 90 1RF Dose Instruction: TAKE 1 TABLET BY MOUTH DAILY Rx Instructions: TAKE 1 TABLET BY MOUTH DAILY omeprazole 20 mg capsule,delayed release(DR/EC) See Rx Instructions .ROUTE .COMPLEX Qty: 90 1RF Dose Instruction: TAKE 1 CAPSULE BY MOUTH DAILY Rx Instructions: TAKE 1 CAPSULE BY MOUTH DAILY Date of admission: 12/22/24 12:53 Primary Care Provider: Sultana Shook Admitting Provider: J Luis Melendez Attending physician on admission: Dahlia Dumont Condition: Improved Quality VTE Prophylaxis VTE prophylaxis: mechanical ordered and pharmacologic ordered
== END 2024-12-23 15:40 | disposition home or self-care (01) | DRG 313 ==
LOC: ANHED 23:00 → ANHIMU 12-22 00:15
PROVIDERS: Emergency Medicine; Nurse Practitioner Family; Admitting Provider Internal Medicine; Emergency Provider Physician Assistant; PCP Family Medicine; Visit Provider Nurse Practitioner Acute Care
DX: R07.9 Chest pain, unspecified (principal); I42.9 Cardiomyopathy, unspecified; R06.09 Other forms of dyspnea; I10 Essential (primary) hypertension; I51.7 Cardiomegaly; I35.1 Nonrheumatic aortic (valve) insufficiency; E04.1 Nontoxic single thyroid nodule; E78.5 Hyperlipidemia, unspecified; K21.9 Gastro-esophageal reflux disease without esophagitis; Z96.653 Presence of artificial knee joint, bilateral; Z79.82 Long term (current) use of aspirin; Z85.46 Personal history of malignant neoplasm of prostate; Z87.891 Personal history of nicotine dependence
CPT/HCPCS: 36415; 71046; 71275; 76536; 78452; 80053; 80061; 81001; 82306; 82607; 82948; 83036; 83540; 83550; 83735; 83880; 84443; 84484; 85025; 85610; 85730; 93005; 93017; 93306; 96361; 96372; 96374; 96375; 99285; A9270; A9502; G0378; J1644; J2405; J2785; J7030; Q9967

== ENCOUNTER 2025-01-23 12:44 | Outpatient (CLI) | payer BC, MEDICARE, SELFPAY ==
--- OUTSIDE RECORDS SUMMARY | 2025-01-23 12:47 | XMS_ITS | Encounter Summary ---
Author Organization [facility] Address [address] [place] [address] Care Team Providers Care Supervisor Carbon Electrodes Name Role Phone Leonidas Doran MD Primary Care Provider Encounter Details Date Type Department Care Team (Late st Contact Info) Description 11/19/2023 Lab Requisition [facility] - DermPath Lab [address] [facility], [place] [address] Tessa Elena MD [address] [facility] 3 [place] [address] Social History Tobacco Use Types Packs/Day Years Used Date Smoking Tobacco: Former Smokeless Tobacco: Never Alcohol Use Standard Drinks/Week Comments Yes 0 (1 standard drink = 0.6 oz pur e alcohol) Sex and Gender Information Value Date Recorded Sex Assigned at Not on file Legal Sex Male 5:27 PM ACID FILLER Gender Identity Not on file Sexual Orientation Not on file documented as of this encounter Plan of Treatment Not on file documented as of this encounter Procedures Procedure Name Priority Date/Time Associated Diagnosis Comments DERMATOPATHOLOGY Routine 11/19/2023 10:5 6 AM ACID FILLER documented in this encounter Results * DERMATOPATHOLOGY (11/19/2023 10:56 AM ACID FILLER) Case Report Dermatopathology Report Case: [id number] Authorizing Provider: Tessa Elena MD Collected: 11/19/2023 10:56 AM Ordering Location: [facility] - Received: 11/20/2023 01:05 PM DermPath Lab Pathologist: Freida Leach MD Specimens: A) - Skin, left hinduism B) - Skin, right ant scalp 1:19 PM T DERMATOPATHOLOGY LABORATORY Final Diagnosis Specimen A. SKIN, left hinduism: SQUAMOUS CELL CARCINOMA IN SITU, PRESENT AT THE BASE OF THE SPECIMEN (D04.39) (see microscopic description and comment) Specimen B. SKIN, right ant scalp: SQUAMOUS CELL CARCINOMA, WELL DIFFERENTIATED (C44.42) 1:19 PM T DERMATOPATHOLOGY LABORATORY Clinical History A-B: Growing R/O SCC 1:19 PM [facility] DERMATOPATHOLOGY LABORATORY Gross Description Specimen A: Received is one formalin filled container labeled with the patient's name and designated left hinduism. The specimen consists of a two pieces shave biopsy measuring 5x5x1, 5x5x1 mm. Jar 0. Specimen B: Received is one formalin filled container labeled with the patient's name and designated right ant scalp. The specimen consists of a shave biopsy measuring 5x5x2 mm. Jar 0. 1:19 PM [facility] DERMATOPATHOLOGY LABORATORY Microscopic Description Specimen A. SKIN, left hinduism: The epidermis shows parakeratosis, full thickness disorderly [...] showing evidence of premature cornification. 1:19 PM T DERMATOPATHOLOGY LABORATORY Disclaimer An external and internal positive and negative controls are appropriate for the histochemical, immunohistochemical and immunofluorescence stain(s) in this case (if any), except where stated explicitly. The performance characteristics of the stain(s) cited in this report were developed and its performance characteristic determined by the Dermatopathology Laboratory at [facility], directed by Dr. Radha Collins. These tests need not be, and therefore are not, approved by the [place] Food and Drug Administration. The tests are used for clinical purposes. Billing Codes Specimen Charges Stain Charges 56575 01419 1 1 03/11/202 4 1:19 PM CDT DERMATOPATHOLOGY LABORATORY Embedded Images 4 1:19 PM CDT DERMATOPATHOLOGY LABORATORY Pathology/Cytology TISSUE SPECIMEN FROM SKIN / Unknown 11/19/2023 10:56 AM ACID FILLER 11/20/2023 1:05 PM ACID FILLER Miscellaneous samples (specimen) TISSUE SPECIMEN FROM SKIN / Unknown 11/19/2023 10:56 AM ACID FILLER 11/20/2023 1:05 PM ACID FILLER us Tessa Elena MD LAB - PATHOLOGY/CYTOLOGY OR DERABLES Final Result DERMATOPATHOLOGY LABORATORY [facility] - Department of Dermatology [facility] [address] [place] [address], [address]rd Floor [address] [phone] documented in this encounter Visit Diagnoses Not on filedocumented in this encounter Care Teams Supervisor Carbon Electrodes Relationship Specialty Start Date End Date Leonidas Doran MD [address] [place] [address] PCP - General 10/20/11 documented as of this encounter
--- OUTSIDE RECORDS SUMMARY | 2025-01-23 12:47 | XMS_ITS ---
Author Organization [facility] Main [place] Address [address] [place] [address] Care Team Providers Care Eligibility Supervisor Name Role Phone Sultana Shook MD Primary Care Provider [phone] Active Problems Problem Noted Date Diagnosed Date [...]
--- OUTSIDE RECORDS SUMMARY | 2025-01-23 12:47 | XMS_ITS | Clinical Summary ---
Author Organization [facility] Address [address] [place] [address] Care Team Providers Care Americanization Teacher Name Role Phone Sultana Shook MD Primary Care Provider [phone] Social History Tobacco Use Types Packs/Day Years Used Date Smoking Tobacco: Never Assessed Sex and Gender Information Value Date Recorded Sex Assigned at Not on file Legal Sex Male 7:43 PM CDT Gender Identity Not on file Sexual Orientation Not on file Plan of Treatment Health Maintenance Due Date Last Done Comments DTaP, Tdap and Td Vaccines ( 1 - Tdap) 1962 Pneumococcal Vaccine: 50+ Ye ars (1 of 1 - PCV) 1993 Zoster Vaccines (1 of 2) 1993 Annual Medicare Wellness Visit 2008 RSV Immunization or 60+ Years (1 [...] age to complete this topic Insurance MEDICARE [facility] Care Teams Americanization Teacher Relationship Specialty Start Date End Date Sultana Shook MD [address] [place] [address] PCP - General FAMILY PRACTICE 04/21/23
--- OUTSIDE RECORDS SUMMARY | 2025-01-23 12:47 | XMS_ITS | Encounter Summary ---
Author Organization [facility] Address [address] [facility] [place] [address] Care Team Providers Care Technical System Analyst Name Role Phone Leonidas Doran MD Primary Care Provider [phone] Encounter Details Date Type Department Care Team (Late st Contact Info) Description 08/22/2020 Lab Requisition [facility] DermPath Lab [address] [facility], [place] [address] [phone] Tessa Elena MD [address] [facility] 3 [place] [address] Social History Tobacco Use Types Packs/Day Years Used Date Smoking Tobacco: Former Smokeless Tobacco: Never Alcohol Use Standard Drinks/Week Comments Yes 0 (1 standard drink = 0.6 oz pur e alcohol) Sex and Gender Information Value Date Recorded Sex Assigned at Not on file Legal Sex Male 5:27 PM COMPUTER OPERATOR Gender Identity Not on file Sexual Orientation Not on file documented as of this encounter Plan of Treatment Not on file documented as of this encounter Procedures Procedure Name Priority Date/Time Associated Diagnosis Comments DERMATOPATHOLOGY Routine 08/21/2020 12:0 0 AM COMPUTER OPERATOR documented in this encounter Results * DERMATOPATHOLOGY (08/21/2020 12:00 AM COMPUTER OPERATOR) Case Report Dermatopathology Report Case: [id number] Authorizing Provider: Tessa Elena MD Collected: 08/21/2020 12:00 AM Ordering Location: [facility] DermPath Lab Received: 08/22/2020 06:49 AM Pathologist: Parrish Collins MD Specimen: Skin, left conchal 0 3:37 PM COMPUTER OPERATOR DERMATOPATHOLOGY LABORATORY Final Diagnosis Specimen A. SKIN, left conchal: SQUAMOUS CELL CARCINOMA, WELL DIFFERENTIATED (C44.229) (see microscopic description) 0 3:37 PM COMPUTER OPERATOR DERMATOPATHOLOGY LABORATORY Clinical History R/O BCC, irritated. 0 3:37 PM COMPUTER OPERATOR DERMATOPATHOLOGY LABORATORY Gross Description Specimen A: Received is one formalin filled container labeled with the patient's name and designated left conchal. The specimen consists of a shave measuring [id number]. Jar 0. 0 3:37 PM COMPUTER OPERATOR DERMATOPATHOLOGY LABORATORY Microscopic Description Specimen A. SKIN, left conchal: Arising in the epidermis and extending into the dermis there are irregularly shaped aggregates of keratinocytes showing evidence of premature cornification. Additional deeper sections were obtained and reviewed. 0 3:37 PM COMPUTER OPERATOR DERMATOPATHOLOGY LABORATORY Disclaimer An external and internal positive and negative controls are appropriate for the histochemical, immunohistochemical and immunofluorescence stain(s) in this case (if any), except where stated explicitly. The performance characteristics of the stain(s) cited in this report were developed and its performance characteristic determined by the Dermatopathology Laboratory at [facility], directed by Dr. Radha Collins. These tests need not be, and therefore are not, approved by the [place] Food and Drug Administration. The tests are used for clinical purposes. Billing Codes Specimen Charges Stain Charges 94378 1 0 3:37 PM COMPUTER OPERATOR DERMATOPATHOLOGY LABORATORY Embedded Images 0 3:37 PM COMPUTER OPERATOR DERMATOPATHOLOGY LABORATORY Pathology/Cytolog y TISSUE SPECIMEN FROM SKIN / Unknown 08/21/2020 08/22/2020 6:49 AM COMPUTER OPERATOR Tessa Elena MD LAB - PATHOLOGY/CYTOLOGY OR DERABLES Final Result DERMATOPATHOLOGY LABORATORY [facility] - Department of Dermatology [address], [address] [phone] documented in this encounter Visit Diagnoses Not on filedocumented in this encounter Care Teams Technical System Analyst Relationship Specialty Start Date End Date Leonidas Doran MD [address] [place] [address] PCP - General 10/20/11 documented as of this encounter
--- OUTSIDE RECORDS SUMMARY | 2025-01-23 12:47 | XMS_ITS | Clinical Summary ---
Author Organization [facility] Address [address] [facility] [place] [address] Care Team Providers Care Vaccine Customer Representative Name Role Phone Leonidas Doran MD Primary Care Provider Source Comments [facility],non-owned Affiliates and Associated Physician Practices is amultiple site organization consisting of ambulatory clinics and hospital sitesin [place], [place], [place] and [place]. This disclosure is being madepursuant to the Care Everywhere program and may not contain all information available regarding this patient. Last updated 18.[facility] Active Problems Problem Noted Date Diagnosed [...] on file Legal Sex Male 5:27 PM FUNCTIONAL SKILLS TUTOR Gender Identity Not on file Sexual Orientation [...] age to complete this topic Insurance MEDICARE MEDICARE [facility] Care Teams Vaccine Customer Representative Relationship Specialty Start Date End Date Leonidas Doran MD [address] [place] [address] PCP - General 10/20/11
--- OUTSIDE RECORDS SUMMARY | 2025-01-23 12:47 | XMS_ITS | Clinical Summary ---
Author Organization [facility] Main [place] Address [address] [place] [address] Care Team Providers Care Traffic Administrator Name Role Phone Sultana Shook MD Primary Care Provider [phone] Allergies No known active allergies Medications aspirin [...] month) (LUPRON) intramuscular injection syringe kit 45 mgIndications:Prosta te cancer (HCC) 45 mg IM Once for Clinic-Administer ed Medication 07/21/2025 Active leuprolide acetate (6 month) (LUPRON) intramuscular injection syringe kit 45 mgIndications:Age-re lated osteoporosis without current pathological fracture 45 mg IM Once for Clinic-Administer ed Medication 07/18/2024 01/17/2025 Ended Active Problems Problem Noted Date Diagnosed Date [...] Encounters Date Type Department Care Team Description 01/17/2025 2:20 PM CDT Office Visit [facility] Urology [address] [place] [address] 11th [place] [address] [place] [address] Shaun Hook NP Prostate cancer (HCC) (Primary Dx); Retention of urine; Age-related osteoporosis without current pathological fracture 01/05/2025 Orders Only [facility] Cardiology [address] [facility] [address] [place] [address] Amanda Person NP 12/26/2024 Telephone [facility] Cardiology [address] [place] [address] [address] [place] [address] Jordan Juarez MD 12/23/2024 Orders Only [facility] Health Information Management [address] [place] [address] Amanda Person NP 12/16/2024 1:40 PM CDT Office Visit [facility] Surgery [address] [facility] [address] [place] [address] Retention of urine (Primary Dx) 12/06/2024 Telephone [facility] Cardiology [address] [facility] [address] [place] [address] Sultana Shook MD 10/26/2024 10:30 AM STEM ROLLER Office Visit [facility] Orthopedics and Sports Medicine [address] [place] [address] [address] [place] [address] Kirk Davalos PA Impingement syndrome of right shoulder (Primary Dx); Impingement syndrome of left shoulder; Pes anserinus bursitis of left knee from Last 3 Months Immunizations Immunization Administration [...] on file Legal Sex Male 9:51 AM STEM ROLLER Gender Identity Not on file Sexual Orientation Not on file Occupation Industry Job Start Date Job End Date Retired Not on file Not on file Not on file Obstetrics History Last Filed Vital Signs Vital Sign Reading Time Taken Comments Blood Pressure 125/69 07/21/2023 2:00 AM STEM ROLLER Pulse 68 07/21/2023 2:00 AM STEM ROLLER Temperature 36.4 C (97.6 F) 07/20/2023 3:07 PM STEM ROLLER Respiratory Rate 18 07/21/2023 2:00 AM STEM ROLLER Oxygen Saturation 96% 07/21/2023 2:00 AM STEM ROLLER Inhaled Oxygen Concentration - - Weight 99.8 kg (220 lb) 10/26/2024 10:08 AM STEM ROLLER Height 182.9 cm (6') 10/26/2024 10:08 AM STEM ROLLER Body Mass Index 29.84 10/26/2024 10:08 AM STEM ROLLER Plan of Treatment Health Maintenance Due Date Last Done Comments Depression Screening 1945 Fall Risk Assessment 1945 DTaP/Tdap/Td Vaccine (1 - Tdap) 1954 Hepatitis B Screening 1961 Pneumococcal vaccine 65+ (1 of 1 - PCV) 1993 Zoster Vaccine (1 of 2) 1993 Well Visit 65+ 2008 Covid-19 Vaccine (3 - season) 2024, 11/01/2020 Influenza Vaccine (Season Ended) 2025 06/27/20 Abdominal Aortic Aneurysm (AAA) Screen Completed Procedures Procedure Name Priority Date/Time Associated Diagnosis Comments CARDIOLOGY DOCUMENT SCAN Routine 12/23/2024 2:17 PM CDT SCAN - RADIOLOGY/IMAGING 12/23/2024 CARDIOLOGY DOCUMENT SCAN Routine 12/22/2024 2:15 PM CDT VA ARTHROCENTESIS ASPIR&/INJ MAJOR JT/BURSA W/O US Routine 10/26/2024 10:30 AM STEM ROLLER Pes anserinus bursitis of left knee VA ARTHROCENTESIS ASPIR&/INJ MAJOR JT/BURSA W/O US Routine 10/26/2024 10:30 AM STEM ROLLER Impingement syndrome of right shoulder Impingement syndrome of left shoulder CT ABDOMEN PELVIS W CONTRAST Routine 10/29/2012 12:40 PM STEM ROLLER from Last 3 Months or Most Recently Relevant to Health Maintenance Results * Cardiology Document Scan (12/23/2024 2:17 PM CDT) Anatomical Region Laterality Modality Other Amanda Person NP CV CARDIAC SERVICES PROCEDUR ES Final Result * SCAN - RADIOLOGY/IMAGING (12/23/2024) Anatomical Region Laterality Modality Other Amanda Person NP Final Result * Cardiology Document Scan (12/22/2024 2:15 PM CDT) Anatomical Region Laterality Modality Other us Amanda Person NP CV CARDIAC SERVICES PROCEDUR ES Final Result * VA ARTHROCENTESIS ASPIR&/INJ MAJOR JT/BURSA W/O US (10/26/2024 10:30 AM STEM ROLLER) Narrative Kirk Davalos PA - 10/26/2024 10:30 AM STEM ROLLER Kirk Davalos PA 10/26/2024 10:30 AM Large [...] IN CLINIC/BEDSIDE ORDERAB LES Final Result * VA ARTHROCENTESIS ASPIR&/INJ MAJOR JT/BURSA W/O US (10/26/2024 10:30 AM STEM ROLLER) Narrative Kirk Davalos PA - 10/26/2024 10:30 AM STEM ROLLER Kirk Davalos PA 10/26/2024 10:30 AM Large [...] Abdomen Pelvis W Contrast (10/29/2012 12:40 PM STEM ROLLER) Anatomical Region Laterality Modality Body N/A Computed Tomogra phy 10/29/2012 12:4 0 PM STEM ROLLER Narrative 10/29/2012 4:05 PM STEM ROLLER STEFANO BENNETT M.D. FINAL REPORT ACC# Date Time Exam [id number] Oct 29, 2012 12:40:[address] Abd & Pelvis w EXAMINATION: Computed [...] M.D. FINAL REPORT ACC# Date Time Exam [id number] Oct 29, 2012 12:40:[address] Abd & Pelvis w EXAMINATION: Computed [...] Recently Relevant to Health Maintenance Insurance MEDICARE * Guarantor: Titus Alcaraz Account Type Relation to Patient Date of Phone Billing Address Personal/Family Self 1945 [address] [address] MEDICARE [facility] FEDERAL Member Subscriber Plan / Payer (Ef fective 1998-Present) Name:Titus Alcaraz Relation to Subscriber:Spouse Name:INEZ ALCARAZ Date of :1961 (Home) Address: [address] [place] [address] Payer ID:[id number] (NAIC) Group ID:[id number] Type:Prescription Eyewear Address: [facility] [address] [place] [address] MEDICARE [facility] FEDERAL Member Subscriber Plan / Payer (Ef fective 2023-Present) Name:Titus Alcaraz Relation to Subscriber:Spouse Name:INEZ ALCARAZ Date of :1963 (Home) Address: [address] [place] [address] Payer ID:[id number] (NAIC) Group ID:[id number] Type:Prescription Eyewear Address: [facility] [id number] [place] [address] Care Teams Traffic Administrator Relationship Specialty Start Date End Date Sultana Shook MD PCP - General 12/05/20
--- OUTSIDE RECORDS SUMMARY | 2025-01-23 12:47 | XMS_ITS | Referral Summary ---
Author Organization [facility] Main [place] Address [address] [place] [address] Care Team Providers Care Car Dropper Name Role Phone Sultana Shook MD Primary Care Provider [phone] Encounters Date Type Department Care Team Description 01/17/2025 2:20 PM CDT Office Visit 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 01/05/2025 Orders Only [facility] Cardiology [address] [facility] [address] [place] [address] Amanda Person NP 12/26/2024 Telephone [facility] Cardiology [address] [place] [address] Jordan Juarez MD 12/23/2024 Orders Only [facility] Health Information Management [address] [place] [address] Amanda Person, ELMER 12/16/2024 1:40 PM CDT Office Visit [facility] Surgery [address] [facility] [address] [place] [address] Retention of urine (Primary Dx) 12/06/2024 Telephone [facility] Cardiology [address] [place] [address] Sultana Shook MD 10/26/2024 10:30 AM BOW STRING MAKER Office Visit [facility] Orthopedics and Sports Medicine [address] [facility] [address] [place] [address] Kirk Davalos PA Impingement syndrome of right shoulder (Primary Dx); Impingement syndrome of left shoulder; Pes anserinus bursitis of left knee from Last 3 Months Allergies No known [...] on file Legal Sex Male 9:51 AM BOW STRING MAKER Gender Identity Not on file Sexual Orientation Not on file Occupation Industry Job Start Date Job End Date Retired Not on file Not on file Not on file Last Filed Vital Signs Vital Sign Reading Time Taken Comments Blood Pressure 125/69 07/21/2023 2:00 AM BOW STRING MAKER Pulse 68 07/21/2023 2:00 AM BOW STRING MAKER Temperature 36.4 C (97.6 F) 07/20/2023 3:07 PM BOW STRING MAKER Respiratory Rate 18 07/21/2023 2:00 AM BOW STRING MAKER Oxygen Saturation 96% 07/21/2023 2:00 AM BOW STRING MAKER Inhaled Oxygen Concentration - - Weight 99.8 kg (220 lb) 10/26/2024 10:08 AM BOW STRING MAKER Height 182.9 cm (6') 10/26/2024 10:08 AM BOW STRING MAKER Body Mass Index 29.84 10/26/2024 10:08 AM BOW STRING MAKER Plan of Treatment Not on file Procedures Procedure Name Priority Date/Time Associated Diagnosis Comments CARDIOLOGY DOCUMENT SCAN Routine 12/23/2024 2:17 PM CDT SCAN - RADIOLOGY/IMAGING 12/23/2024 CARDIOLOGY DOCUMENT SCAN Routine 12/22/2024 2:15 PM CDT DE ARTHROCENTESIS ASPIR&/INJ MAJOR JT/BURSA W/O US Routine 10/26/2024 10:30 AM BOW STRING MAKER Pes anserinus bursitis of left knee DE ARTHROCENTESIS ASPIR&/INJ MAJOR JT/BURSA W/O US Routine 10/26/2024 10:30 AM BOW STRING MAKER Impingement syndrome of right shoulder Impingement syndrome of left shoulder CT ABDOMEN PELVIS W CONTRAST Routine 10/29/2012 12:40 PM BOW STRING MAKER from Last 3 Months or Most Recently [...] CARDIAC SERVICES PROCEDUR ES Final Result * DE ARTHROCENTESIS ASPIR&/INJ MAJOR JT/BURSA W/O US (10/26/2024 10:30 AM BOW STRING MAKER) Narrative Kirk Davalos PA - 10/26/2024 10:30 AM BOW STRING MAKER Kirk Davalos PA 10/26/2024 10:30 AM Large [...] IN CLINIC/BEDSIDE ORDERAB LES Final Result * DE ARTHROCENTESIS ASPIR&/INJ MAJOR JT/BURSA W/O US (10/26/2024 10:30 AM BOW STRING MAKER) Narrative Kirk Davalos PA - 10/26/2024 10:30 AM BOW STRING MAKER Kirk Davalos PA 10/26/2024 10:30 AM Large [...] Abdomen Pelvis W Contrast (10/29/2012 12:40 PM BOW STRING MAKER) Anatomical Region Laterality Modality Body N/A Computed Tomogra phy 10/29/2012 12:4 0 PM BOW STRING MAKER Narrative 10/29/2012 4:05 PM BOW STRING MAKER STEFANO BENNETT M.D. FINAL REPORT ACC# Date Time Exam [id number] Oct 29, 2012 12:40:[id number] Abd & Pelvis w EXAMINATION: Computed [...] M.D. FINAL REPORT ACC# Date Time Exam [id number] Oct 29, 2012 12:40:[address] Abd & Pelvis w EXAMINATION: Computed [...] Relevant to Health Maintenance Insurance MEDICARE MEDICARE [facility] Member Subscriber Plan / Payer (Ef fective 1998-Present) Name:Titus Alcaraz Relation to Subscriber:Spouse Name:INEZ ALCARAZ [place] Date of :1961 (Home) Address: [address] [place] [address] Payer ID:[id number] (NAIC) Group ID:[id number] Type:[facility] Address: [facility] [id number] [place] [address] MEDICARE [facility] FEDERAL Member Subscriber Plan / Payer (Ef fective 2023-Present) Name:Titus Alcaraz Relation to Subscriber:Spouse Name:INEZ ALCARAZ Date of :1963 (Home) Address: [address] [place] [id number] Payer ID:[id number] (NAIC) Group ID:[id number] Type:[facility] Address: [address] [place] [phone] Care Teams Car Dropper Relationship Specialty Start Date End Date Sultana Shook MD PCP - General 12/05/20
--- NOTE | 2025-01-23 18:32 | WPDPFTINT ---
PFT Procedure Performed PFT Procedure Performed Spirometry with Pre/Post Bronchodilator Plethysmography (Lung Vol) Diffusing Cap (DLCO) Flow Vol Loop PFT Interpretation This is a pulmonary function test with pre and post-bronchodilator spirometry, plethysmography and diffusing capacity. The test was performed and results interpreted in accordance with the 2019 and 2005 ATS/ERS Task Force guidelines respectively using the Global Lung Function Initiative-2012 reference equations. Patient demonstrated good effort and cooperation. Reproducibility criteria were met. The quality of the pre bronchodilator spirometry maneuver was Grade A and post bronchodilator spirometry maneuver was Grade A. Findings: Spirometry: The contour the inspiratory and expiratory flow tracing are normal. The pre bronchodilator FVC is 3.83 L, 96% predicted. The pre bronchodilator FEV1 is 3.10 L, 106% predicted. The pre bronchodilator FEV1: FVC ratio is 81%. The post bronchodilator FVC is 4.04 L, representing a 5% increase. The post bronchodilator FEV1 is 3.23 L, representing a 4% increase. The post bronchodilator FEV1: FVC ratio is 80%. Plethysmography: The total lung capacity is 8.13 L, 112% predicted. The functional residual capacity is 4.86 L, 123% predicted. The residual volume is 3.69 L, 136% predicted. Diffusing capacity: The diffusing capacity unadjusted for hemoglobin and carboxyhemoglobin is 19.6, 82% predicted. The diffusing capacity adjusted for alveolar volume is 3.19, 90% predicted. Impression: The spirometry is normal without evidence of an obstructive abnormality. There is no significant improvement after inhaling a single dose of albuterol. The lung volumes are normal. The diffusing capacity is normal. There are no prior studies for comparison
== END 2025-01-23 12:45 | disposition home or self-care (01) ==
LOC: ANHPFT 12:45
PROVIDERS: PCP Family Medicine; Visit Provider Family Medicine
DX: R06.00 Dyspnea, unspecified (principal)
CPT/HCPCS: 94060; 94726; 94729

== ENCOUNTER 2025-02-03 07:39 | Outpatient (CLI) | payer MEDICARE, BC, SELFPAY ==
--- NOTE | ~2025-02-03 | US_ITS ---
US abdomen limited INDICATION: Abdominal pain PROCEDURE: Realtime right upper abdominal ultrasound. COMPARISON: Ultrasound dated 04/19/[address] dated 12/19/2022 FINDINGS: The pancreas is normal without focal mass or pancreatic ductal dilation. Is increased, con sistent with fatty infiltration. There is normal directional flow in the portal vein. There are small nonmobile echogenic nondependent foci along the gallbladder lumen measuring 3 mm or l ess, consistent with gallbladder polyps. Common bile duct measures 3 mm. No sonographic Harrison's si gn. IMPRESSION: 1: Gallbladder polyps. 2: Fatty infiltration of the liver. Reviewed, dictated and finalized at location []
--- OUTSIDE RECORDS SUMMARY | 2025-02-03 07:43 | XMS_ITS | Encounter Summary ---
Author Organization [facility] Address [address] [place] [address] Care Team Providers Care Lead Fabricator Name Role Phone Leonidas Doran MD Primary Care Provider [phone] Encounter Details Date Type Department Care Team (Late st Contact Info) Description 08/22/2020 Lab Requisition [facility] DermPath Lab [address], [place] [id number] [phone] Tessa Elena MD [address] [facility] 3 [place] [address] Social History Tobacco Use Types Packs/Day Years Used Date Smoking Tobacco: Former Smokeless Tobacco: Never Alcohol Use Standard Drinks/Week Comments Yes 0 (1 standard drink = 0.6 oz pur e alcohol) Sex and Gender Information Value Date Recorded Sex Assigned at Not on file Legal Sex Male 5:27 PM REGIONAL DRIVER Gender Identity Not on file Sexual Orientation Not on file documented as of this encounter Plan of Treatment Not on file documented as of this encounter Procedures Procedure Name Priority Date/Time Associated Diagnosis Comments DERMATOPATHOLOGY Routine 08/21/2020 12:0 0 AM REGIONAL DRIVER documented in this encounter Results * DERMATOPATHOLOGY (08/21/2020 12:00 AM REGIONAL DRIVER) Case Report Dermatopathology Report Case: [id number] Authorizing Provider: Tessa Elena MD Collected: 08/21/2020 12:00 AM Ordering Location: [facility] Derm[facility] Lab Received: 08/22/2020 06:49 AM Pathologist: Parrish Collins MD Specimen: Skin, left conchal 0 3:37 PM [facility] Final Diagnosis Specimen A. SKIN, left conchal: SQUAMOUS CELL CARCINOMA, WELL DIFFERENTIATED (C44.229) (see microscopic description) 0 3:37 PM [facility] DERMAT[facility] at 1537 REGIONAL DRIVER Clinical History R/O BCC, irritated. 0 3:37 PM [facility] Gross Description Specimen A: Received is one formalin filled container labeled with the patient's name and designated left conchal. The specimen consists of a shave measuring [id number]. Jar 0. 0 3:37 PM [facility] Microscopic Description Specimen A. SKIN, left conchal: Arising in the epidermis and extending into the dermis there are irregularly shaped aggregates of keratinocytes showing evidence of premature cornification. Additional deeper sections were obtained and reviewed. 0 3:37 PM [facility] Disclaimer An external and internal positive and negative controls are appropriate for the histochemical, immunohistochemical and immunofluorescence stain(s) in this case (if any), except where stated explicitly. The performance characteristics of the stain(s) cited in this report were developed and its performance characteristic determined by the Dermatopathology Laboratory at [facility], directed by Dr. Radha Collins. These tests need not be, and therefore are not, approved by the [place] Food and Drug Administration. The tests are used for clinical purposes. Billing Codes Specimen Charges Stain Charges 53581 1 0 3:37 PM [facility] Embedded Images 0 3:37 PM [facility] Pathology/Cytolog y TISSUE SPECIMEN FROM SKIN / Unknown 08/21/2020 08/22/2020 6:49 AM REGIONAL DRIVER Tessa Elena MD LAB - PATHOLOGY/CYTOLOGY OR DERABLES Final Result DERMATOPATHOLOGY LABORATORY [facility] - Department of Dermatology [address], [address] [phone] documented in this encounter Visit Diagnoses Not on filedocumented in this encounter Care Teams Lead Fabricator Relationship Specialty Start Date End Date Leonidas Doran MD [address] [place] [address] PCP - General 10/20/11 documented as of this encounter
--- OUTSIDE RECORDS SUMMARY | 2025-02-03 07:43 | XMS_ITS | Referral Summary ---
Author Organization [facility] Main [place] Address [address] [place] [address] Care Team Providers Care Director Of Quality Control Name Role Phone Sultana Shook MD Primary Care Provider [phone] Encounters Date Type Department Care Team Description 01/24/2025 Results Follow-Up [facility]) [facility] Urology [address] [facility] 11th [place] [address] [place] [phone] Shaun Hook NP PSA screen, Total testosterone 01/24/2025 1:15 PM CDT Office Visit [facility] [address] [place] [address] [place] [phone] Kirk Davalos PA Impingement syndrome of right shoulder (Primary Dx); Impingement syndrome of left shoulder; Pes anserinus bursitis of left knee 01/17/2025 2:20 PM CDT Office Visit [facility]) [facility] Urology [address] [facility] 11th [place] [address] [place] [phone] Shaun Hook NP Prostate cancer (HCC) (Primary Dx); Retention of urine; Age-related osteoporosis without current pathological fracture 01/05/2025 Orders Only [facility] [address] [facility] [address] [place] [phone] Amanda Person NP 12/26/2024 Telephone [facility] [address] [place] [address] Jordan Juarez MD 12/23/2024 Orders Only [facility] Health Information Management [address] [place] [address] Amanda Person NP 12/16/2024 1:40 PM CDT Office Visit [facility] Surgery [address] [facility] [address] [place] [address] Retention of urine (Primary Dx) 12/06/2024 Telephone [facility] [address] [place] [address] Sultana Shook MD from Last 3 Months Allergies No known [...] month) (LUPRON) intramuscular injection syringe kit 45 mgIndications:Prost ate cancer (HCC) 45 mg IM Once for Clinic-Administe red Medication 07/21/2025 Active leuprolide acetate (6 month) (LUPRON) intramuscular injection syringe kit 45 mgIndications:Age-r elated osteoporosis without current pathological fracture 45 mg IM Once for Clinic-Administe red Medication 07/18/2024 5 Ended lidocaine (XYLOCAINE) 10 mg/mL (1 %) injection 1 mLIndications:Admin istration of Local Anesthesia 1 mL One-Time Injection 01/24/2025 5 Ended lidocaine (XYLOCAINE) 10 mg/mL (1 %) injection 1 mLIndications:Admin istration of Local Anesthesia 1 mL One-Time Injection 01/24/2025 5 Ended lidocaine (XYLOCAINE) 10 mg/mL (1 %) injection 1 mLIndications:Admin istration of Local Anesthesia 1 mL One-Time Injection 01/24/2025 5 Ended triamcinolone (KENALOG) 40 mg/mL injection 40 mgIndications:Impin gement syndrome of right shoulder,Impingemen t syndrome of left shoulder 40 mg intra-artic One-Time Injection 01/24/2025 5 Ended triamcinolone (KENALOG) 40 mg/mL injection 40 mgIndications:Impin gement syndrome of right shoulder,Impingemen t syndrome of left shoulder 40 mg intra-artic One-Time Injection 01/24/2025 5 Ended triamcinolone (KENALOG) 40 mg/mL injection 40 mgIndications:Pes anserinus bursitis of left knee 40 mg intra-artic One-Time Injection 01/24/2025 5 Ended Active Problems Problem Noted Date Diagnosed [...] on file Legal Sex Male 9:51 AM SHADER AND TONER Gender Identity Not on file Sexual Orientation Not on file Occupation Industry Job Start Date Job End Date Retired Not on file Not on file Not on file Last Filed Vital Signs Vital Sign Reading Time Taken Comments Blood Pressure 125/69 07/21/2023 2:00 AM SHADER AND TONER Pulse 68 07/21/2023 2:00 AM SHADER AND TONER Temperature 36.4 C (97.6 F) 07/20/2023 3:07 PM SHADER AND TONER Respiratory Rate 18 07/21/2023 2:00 AM SHADER AND TONER Oxygen Saturation 96% 07/21/2023 2:00 AM SHADER AND TONER Inhaled Oxygen Concentration - - Weight 99.8 kg (220 lb) 10/26/2024 10:08 AM SHADER AND TONER Height 182.9 cm (6') 10/26/2024 10:08 AM SHADER AND TONER Body Mass Index 29.84 10/26/2024 10:08 AM SHADER AND TONER Plan of Treatment Not on file Procedures Procedure Name Priority Date/Time Associated Diagnosis Comments NC ARTHROCENTESIS ASPIR&/INJ MAJOR JT/BURSA W/O US Routine 01/24/2025 1:15 PM CDT Pes anserinus bursitis of left knee NC ARTHROCENTESIS ASPIR&/INJ MAJOR JT/BURSA W/O US Routine 01/24/2025 1:15 PM CDT Impingement syndrome of right shoulder Impingement syndrome of left shoulder PSA SCREEN Routine 01/23/2025 11:44 AM CDT Prostate cancer (HCC) TOTAL TESTOSTERONE Routine 01/23/2025 11 :42 AM CDT Prostate cancer (HCC) CARDIOLOGY DOCUMENT SCAN Routine 12/23/2024 2:17 PM CDT SCAN - RADIOLOGY/IMAGING 12/23/2024 CARDIOLOGY DOCUMENT SCAN Routine 12/22/2024 2:[address] ABDOMEN PELVIS W CONTRAST Routine 10/29/2012 12:40 PM SHADER AND TONER from Last 3 Months or Most Recently Relevant to Health Maintenance Results * NC ARTHROCENTESIS ASPIR&/INJ MAJOR JT/BURSA W/O US (01/24/2025 1:15 PM CDT) Kirk Olson PA - 01/24/2025 1:15 PM CDT Kirk Davalos PA 01/24/2025 2:29 PM Large Joint (Hip, Knee, Shoulder) Injection: L [...] IN CLINIC/BEDSIDE ORDERAB LES Final Result * NC ARTHROCENTESIS ASPIR&/INJ MAJOR JT/BURSA W/O US (01/24/2025 1:15 PM CDT) Kirk Olson PA - 01/24/2025 1:15 PM CDT Kirk Davalos PA 01/24/2025 2:29 PM Large Joint (Hip, Knee, Shoulder) Injection: bilateral [...] IN CLINIC/BEDSIDE ORDERAB LES Final Result * PSA screen (01/23/2025 11:44 AM CDT) PSA 0.05 < OR = 4.00 ng/mL [facility] Comment: The total PSA value from this assay system is standardized against the WHO standard. The test result will be approximately 20% lower when compared to the equimolar-standardized total PSA (Rah Sara). Comparison of serial PSA results should be interpreted with this fact in mind. This test was performed using the Siemens chemiluminescent method. Values obtained from different assay methods cannot be used interchangeably. PSA levels, regardless of value, should not be interpreted as absolute evidence of the presence or absence of disease. Blood 01/23/2025 11:4 4 AM CDT 01/23/2025 11:44 AM CDT Result [facility] Shaun Hook NP LAB BLOOD ORDERABLES F inal Result Performing Organization Address [facility] Co de Phone Number [facility] [address] [place] [address] * (ABNORMAL) Total testosterone (01/23/2025 11:42 AM CDT) Testosterone <10(L) 250 - 827 ng/dL [facility] Comment: In hypogonadal males, Testosterone, Total, LC/MS/MS, is the recommended assay due to the diminished accuracy of immunoassay at levels below 250 ng/dL. This test code (42556) must be collected in a red-top tube with no gel. Blood 01/23/2025 11:4 2 AM CDT 01/23/2025 11:43 AM CDT Result [facility] Shaun Hook NP LAB BLOOD ORDERABLES F inal Result Performing Organization Address City/[facility]/ZIP Co de Phone Number [facility] [address] [place] [address] * Cardiology Document Scan (12/23/2024 2:17 PM CDT) Anatomical Region Laterality Modality Other Amnada Person NP CV CARDIAC SERVICES PROCEDUR ES Final Result * SCAN - RADIOLOGY/IMAGING (12/23/2024) Anatomical Region Laterality Modality Other Amanda Person NP Final Result * Cardiology Document Scan (12/22/2024 2:15 PM CDT) Anatomical Region Laterality Modality Other Amanda Person NP CV CARDIAC SERVICES PROCEDUR ES Final Result * CT Abdomen Pelvis W Contrast (10/29/2012 12:40 PM SHADER AND TONER) Anatomical Region Laterality Modality Body N/A Computed Tomogra phy 10/29/2012 12:4 0 PM SHADER AND TONER Narrative 10/29/2012 4:05 PM SHADER AND TONER STEFANO BENNETT M.D. FINAL REPORT ACC# Date Time Exam [id number] Oct 29, 2012 12:40:[address] Abd & Pelvis w EXAMINATION: Computed [...] M.D. FINAL REPORT ACC# Date Time Exam [id number] Oct 29, 2012 12:40:[address] Abd & Pelvis w EXAMINATION: Computed [...] Relevant to Health Maintenance Insurance MEDICARE MEDICARE [facility] FEDERAL Member Subscriber Plan / Payer (Ef fective 1998-Present) Name:Kieran Drew C Relation to Subscriber:Spouse Name:LALA ALCARAZ [place] Date of :1961 (Home) Address: [address] [place] [address] Payer ID:[id number] (NAIC) Group ID:[id number] Type:[facility] Address: [address] [place] [address] * Guarantor: Drew Alcaraz Account Type Relation to Patient Date of Phone Billing Address Personal/Family Self 1945 [address] [address] MEDICARE [facility] FEDERAL Member Subscriber Plan / Payer (Ef fective 2023-Present) Name:Drew Alcaraz Relation to Subscriber:Spouse Name:KIERANLALA [place] Date of :1961 (Home) Address: [place] [address] Payer ID:[id number] (NAIC) Group ID:[id number] Type:[employer] Address: [address] [place] [id number] Care Teams Director Of Quality Control Relationship Specialty Start Date End Date Sultana Shook MD PCP - General 12/05/20
--- OUTSIDE RECORDS SUMMARY | 2025-02-03 07:43 | XMS_ITS | Encounter Summary ---
Author Organization [facility] Address [address] [facility] [place] [address] Care Team Providers Care Metal Bonding Worker Name Role Phone Leonidas Doran MD Primary Care Provider Encounter Details Date Type Department Care Team (Late st Contact Info) Description 11/19/2023 Lab Requisition [facility] - DermPath Lab [address] [facility] [place] [address] Tessa Elena MD [address] [facility] [address] [place] [address] Social History Tobacco Use Types Packs/Day Years Used Date Smoking Tobacco: Former Smokeless Tobacco: Never Alcohol Use Standard Drinks/Week Comments Yes 0 (1 standard drink = 0.6 oz pur e alcohol) Sex and Gender Information Value Date Recorded Sex Assigned at Not on file Legal Sex Male 5:27 PM CORN CHIP MAKER Gender Identity Not on file Sexual Orientation Not on file documented as of this encounter Plan of Treatment Not on file documented as of this encounter Procedures Procedure Name Priority Date/Time Associated Diagnosis Comments DERMATOPATHOLOGY Routine 11/19/2023 10:5 6 AM CORN CHIP MAKER documented in this encounter Results * DERMATOPATHOLOGY (11/19/2023 10:56 AM CORN CHIP MAKER) Case Report Dermatopathology Report Case: [id number] Authorizing Provider: Tessa Elena MD Collected: 11/19/2023 10:56 AM Ordering Location: [facility] - Received: 11/20/2023 01:05 PM DermPath Lab Pathologist: Freida Leach MD Specimens: A) - Skin, left spiritism B) - Skin, right ant scalp 1:19 PM CDT DERMATOPATHOLOGY LABORATORY Final Diagnosis Specimen A. SKIN, left spiritism: SQUAMOUS CELL CARCINOMA IN SITU, PRESENT AT THE BASE OF THE SPECIMEN (D04.39) (see microscopic description and comment) Specimen B. SKIN, right ant scalp: SQUAMOUS CELL CARCINOMA, WELL DIFFERENTIATED (C44.42) 1:19 PM CDT DERMATOPATHOLOGY LABORATORY at 1319 CDT Clinical History A-B: Growing R/O SCC 1:19 PM CDT DERMATOPATHOLOGY LABORATORY Gross Description Specimen A: Received is one formalin filled container labeled with the patient's name and designated left spiritism. The specimen consists of a two pieces shave biopsy measuring 5x5x1, 5x5x1 mm. Jar 0. Specimen B: Received is one formalin filled container labeled with the patient's name and designated right ant scalp. The specimen consists of a shave biopsy measuring 5x5x2 mm. Jar 0. 1:19 PM CDT DERMATOPATHOLOGY LABORATORY Microscopic Description Specimen A. SKIN, left spiritism: The epidermis shows parakeratosis, full thickness disorderly [...] showing evidence of premature cornification. 1:19 PM CDT DERMATOPATHOLOGY LABORATORY Disclaimer An external and internal positive and negative controls are appropriate for the histochemical, immunohistochemical and immunofluorescence stain(s) in this case (if any), except where stated explicitly. The performance characteristics of the stain(s) cited in this report were developed and its performance characteristic determined by the Dermatopathology Laboratory at [facility], directed by Dr. Radha Collins. These tests need not be, and therefore are not, approved by the [place] Food and Drug Administration. The tests are used for clinical purposes. Billing Codes Specimen Charges Stain Charges 90620 71848 1 1 03/11/202 4 1:19 PM CDT DERMATOPATHOLOGY LABORATORY Embedded Images 4 1:19 PM CDT DERMATOPATHOLOGY LABORATORY Pathology/Cytology TISSUE SPECIMEN FROM SKIN / Unknown 11/19/2023 10:56 AM CORN CHIP MAKER 11/20/2023 1:05 PM CORN CHIP MAKER Miscellaneous samples (specimen) TISSUE SPECIMEN FROM SKIN / Unknown 11/19/2023 10:56 AM CORN CHIP MAKER 11/20/2023 1:05 PM CORN CHIP MAKER us Tessa Elena MD LAB - PATHOLOGY/CYTOLOGY OR DERABLES Final Result DERMATOPATHOLOGY LABORATORY [facility] - Department of Dermatology [facility] [address] [place] [address], [address]rd Floor [address] [phone] documented in this encounter Visit Diagnoses Not on filedocumented in this encounter Care Teams Metal Bonding Worker Relationship Specialty Start Date End Date Leonidas Doran MD [address] [place] [address] PCP - General 10/20/11 documented as of this encounter
--- OUTSIDE RECORDS SUMMARY | 2025-02-03 07:43 | XMS_ITS ---
Author Organization [facility] Main [place] Address [address] [place] [address] Care Team Providers Care Poultry Hanger Name Role Phone Sultana Shook MD Primary Care Provider [phone] Active Problems Problem Noted Date Diagnosed Date [...]
--- OUTSIDE RECORDS SUMMARY | 2025-02-03 07:43 | XMS_ITS | Encounter Summary ---
Author Organization [facility] Address [address] [facility] [address] [place] [address] Phone Care Team Providers Care Credit Card Analyst Name Role Phone Sultana Shook MD Primary Care Provider [phone] Encounter Details Date Type Department Care Team (Latest Contact Info) Description 01/24/2025 Results Follow-Up [facility]) - [facility] Urology [address] [facility] 11th [place] [address] [place] [address] Shaun Hook NP [address] [facility] [place] [address] PSA screen, Total testosterone Social History Tobacco Use Types Packs/Day Years [...] on file Legal Sex Male 9:51 AM DENTIST/OWNER Gender Identity Not on file Sexual Orientation Not on file Occupation Industry Job Start Date Job End Date Retired Not on file Not on file Not on file documented as of this encounter Plan of Treatment Not on file documented as of this encounter Visit Diagnoses Not on filedocumented in this encounter Care Teams Credit Card Analyst Relationship Specialty Start Date End Date Sultana Shook MD PCP - General 12/05/20 documented as of this encounter
--- OUTSIDE RECORDS SUMMARY | 2025-02-03 07:43 | XMS_ITS | Clinical Summary ---
Author Organization [facility] Address [address] [place] [address] Care Team Providers Care Survey Research Associate Name Role Phone Leonidas Doran MD Primary Care Provider [phone] Source Comments [facility],non-owned Affiliates and Associated Physician Practices is amultiple site organization consisting of ambulatory clinics and hospital sitesin [place], [place], [place] and [place]. This disclosure is being madepursuant to the Care Everywhere program and may not contain all information available regarding this patient. Last updated 18.[facility] Active Problems Problem Noted Date [...] on file Legal Sex Male 5:27 PM EMT PARAMEDIC Gender Identity Not on file Sexual Orientation [...] topic Insurance MEDICARE MEDICARE [employer] Care Teams Survey Research Associate Relationship Specialty Start Date End Date Leonidas Doran MD [address] [place] [address] PCP - General 10/20/11
--- OUTSIDE RECORDS SUMMARY | 2025-02-03 07:43 | XMS_ITS | Clinical Summary ---
Author Organization [facility] Main [place] Address [address] [place] [address] Care Team Providers Care Slitter Processed Film Name Role Phone Sultana Shook MD Primary Care Provider [phone] Allergies No known active allergies Medications aspirin [...] Date Type Department Care Team Description 01/24/2025 1:15 PM CDT Office Visit [facility] Orthopedics and Sports Medicine [address] [place] [phone] Davalos, Rony., PA Impingement syndrome of right shoulder (Primary Dx); Impingement syndrome of left shoulder; Pes anserinus bursitis of left knee 01/24/2025 Results Follow-Up [facility] Urology [address] [place] [address] 11th [place] [address] Shaun Hook NP PSA screen, Total testosterone 01/17/2025 2:20 PM CDT Office Visit [facility]) [facility] Urology [address] [facility] 11th [place] [address] Shaun Hook NP Prostate cancer (HCC) (Primary Dx); Retention of urine; Age-related osteoporosis without current pathological fracture 01/05/2025 Orders Only [facility] [address] [place] [address] [place] [phone] Amanda Person NP 12/26/2024 Telephone [facility] [address] [place] [address] [place] [phone] Jordan Juarez MD 12/23/2024 Orders Only [facility] Health Information Management [address] [place] [address] Amanda Person NP 12/16/2024 1:40 PM CDT Office Visit [facility] Surgery [facility] [address] [place] [phone] Retention of urine (Primary Dx) 12/06/2024 Telephone [facility] [address] [facility] [address] [place] [phone] Sultana Shook MD from Last 3 Months Immunizations Immunization Administration [...] on file Legal Sex Male 9:51 AM TECHNICAL DELIVERY MANAGER Gender Identity Not on file Sexual Orientation Not on file Occupation Industry Job Start Date Job End Date Retired Not on file Not on file Not on file Obstetrics History Last Filed Vital Signs Vital Sign Reading Time Taken Comments Blood Pressure 125/69 07/21/2023 2:00 AM TECHNICAL DELIVERY MANAGER Pulse 68 07/21/2023 2:00 AM TECHNICAL DELIVERY MANAGER Temperature 36.4 C (97.6 F) 07/20/2023 3:07 PM TECHNICAL DELIVERY MANAGER Respiratory Rate 18 07/21/2023 2:00 AM TECHNICAL DELIVERY MANAGER Oxygen Saturation 96% 07/21/2023 2:00 AM TECHNICAL DELIVERY MANAGER Inhaled Oxygen Concentration - - Weight 99.8 kg (220 lb) 10/26/2024 10:08 AM TECHNICAL DELIVERY MANAGER Height 182.9 cm (6') 10/26/2024 10:08 AM TECHNICAL DELIVERY MANAGER Body Mass Index 29.84 10/26/2024 10:08 AM TECHNICAL DELIVERY MANAGER Plan of Treatment Health Maintenance Due Date Last Done Comments Depression Screening 1943 Fall Risk Assessment 1943 DTaP/Tdap/Td Vaccine (1 - Tdap) 1954 Hepatitis B Screening 1961 Pneumococcal vaccine 65+ (1 of 1 - PCV) 1993 Zoster Vaccine (1 of 2) 1993 Well Visit 65+ 2008 Covid-19 Vaccine (3 - season) 2024, 11/01/2020 Influenza Vaccine (Season Ended) 2025 06/27/20 20 Abdominal Aortic Aneurysm (AAA) Screen Completed Procedures Procedure Name Priority Date/Time Associated Diagnosis Comments [place] ARTHROCENTESIS ASPIR&/INJ MAJOR JT/BURSA W/O US Routine 01/24/2025 1:15 PM CDT Pes anserinus bursitis of left knee OH ARTHROCENTESIS ASPIR&/INJ MAJOR JT/BURSA W/O US Routine [...] PELVIS W CONTRAST Routine 10/29/2012 12:40 PM TECHNICAL DELIVERY MANAGER from Last 3 Months or Most Recently Relevant to Health Maintenance Results * [place] ARTHROCENTESIS ASPIR&/INJ MAJOR JT/BURSA W/O US (01/24/2025 1:15 PM CDT) Narrative Kirk Davalos PA - 01/24/2025 1:15 PM CDT Kirk [...] IN CLINIC/BEDSIDE ORDERAB LES Final Result * [place] ARTHROCENTESIS ASPIR&/INJ MAJOR JT/BURSA W/O US (01/24/2025 [...] 0.05 < OR = 4.00 ng/mL [facility] Comment: The total PSA value from [...] 4 AM CDT 01/23/2025 11:44 AM CDT Shaun Hook POULTRY TRIMMER LAB BLOOD ORDERABLES F inal Result Performing Organization Address [facility] Co de Phone Number [facility] [address] [place] [address] * (ABNORMAL) Total testosterone (01/23/2025 11:42 AM CDT) Testosterone <10(L) 250 - 827 ng/dL [facility] Comment: In hypogonadal males, Testosterone, Total, LC/MS/MS, is the recommended assay due to the diminished accuracy of immunoassay at levels below 250 ng/dL. This test code (79502) must be collected in a red-top tube with no gel. Blood 01/23/2025 11:4 2 AM CDT 01/23/2025 11:43 AM CDT Shaun Hook NP LAB BLOOD ORDERABLES F inal Result Performing Organization Address [facility] de Phone Number [facility] [address] [place] [address] * Cardiology Document Scan (12/23/2024 2:17 PM [...] Abdomen Pelvis W Contrast (10/29/2012 12:40 PM TECHNICAL DELIVERY MANAGER) Anatomical Region Laterality Modality Body N/A Computed Tomogra phy 10/29/2012 12:4 0 PM TECHNICAL DELIVERY MANAGER Narrative 10/29/2012 4:05 PM TECHNICAL DELIVERY MANAGER STEFANO BENNETT M.D. FINAL REPORT ACC# Date Time Exam [id number] Oct 29, 2012 12:40:[id number] Abd & Pelvis w EXAMINATION: Computed [...] M.D. FINAL REPORT ACC# Date Time Exam [id number] Oct 29, 2012 12:40:[id number] Abd & Pelvis w EXAMINATION: Computed [...] Subscriber Plan / Payer (Ef fective 1998-Present) Name:Drew Alcaraz Relation to Subscriber:Spouse Name:LALA ALCARAZ Date of :1961 (Home) Address: [address] [place] [address] Payer ID:[id number] (NAIC) Group ID:[id number] Type: [employer] Address: [address] [place] [address] [facility] Address: [address] [address] [place] [address] [facility] Member Subscriber Plan / Payer (Ef fective 2023-Present) Name:Drew Alcaraz Relation to Subscriber:Spouse Name:LALA ALCARAZ Date of :1961 (Home) Address: [place] [address] Payer ID:[id number] (NAIC) Group ID:[id number] Type:[employer] Address: [address] [place] [address] Care Teams Slitter Processed Film Relationship Specialty Start Date End Date Sultana Shook MD PCP - General 12/05/20
== END 2025-02-03 07:40 | disposition home or self-care (01) ==
PROVIDERS: PCP Family Medicine; Visit Provider Family Medicine
DX: K82.4 Cholesterolosis of gallbladder (principal); K76.0 Fatty (change of) liver, not elsewhere classified
CPT/HCPCS: 76705

== ENCOUNTER 2025-05-14 23:27 | Emergency (ER) | payer MEDICARE, BC, SELFPAY ==
--- NOTE | ~2025-05-14 | XR_ITS ---
EXAMINATION: XR knee LT 3V DATE: 05/15/2025 00:10 INDICATION: Left knee injury post fall TECHNIQUE: Anteroposterior, oblique and crosstable lateral views of the left knee were obtained COMPARISON: None. FINDINGS: Left total knee arthroplasty without patellar resurfacing in near-anatomic alignment. No fracture. There is a small left knee joint effusion without layering lipohemarthrosis. There is localized periprosthetic lucency along lateral femoral condyle and about the medial margin of the tibial component whi ch could be related to particle disease. No findings to suggest loosening.. IMPRESSION: 1. Left total knee arthroplasty without patellar resurfacing with small knee joint effusion but without evident fracture. Reviewed, dictated and finalized at location A. IMPRESSION: 1. Left total knee arthroplasty without patellar resurfacing with small knee emile int effusion but without evident fracture.
--- NOTE | ~2025-05-14 | XR_ITS ---
EXAMINATION: XR elbow LT min 3V DATE: 05/15/2025 03:58 INDICATION: Left elbow pain TECHNIQUE: Anteroposterior, oblique and lateral views of the left elbow were obtained. COMPARISON: None. FINDINGS: Alignment is normal. No fracture or joint effusion. 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 Tiny olecranon spur. Soft tissues are unremarkable. IMPRESSION: 1. Mild osteoarthritis at the left elbow. No joint effusion or acute osseous abnormality. Reviewed, dictated and finalized at location A. IMPRESSION: 1. Mild osteoarthritis at the left elbow. No joint effusion or acute osseous ab normality.
[2025-05-14 23:28] VITALS: BP 122/83; PULSE 69; RESP 16; TEMP 36.4; O2SAT 98
[2025-05-15] MEDS: TETANUS,DIPHTHERIA,AC PERTUSSIS ADULT (0.5 ML) BOOSTRIX IM (04:16)
[2025-05-15 04:21] VITALS: BP 145/74; PULSE 85; RESP 16; O2SAT 99
--- OUTSIDE RECORDS SUMMARY | 2025-05-15 04:24 | XMS_ITS | Encounter Summary ---
Author Organization [facility] Address [address] [place] [address] Care Team Providers Care Tube Rebuilder Name Role Phone Leonidas Doran MD Primary Care Provider [phone] Encounter Details Date Type Department Care Team (Late st Contact Info) Description 08/22/2020 Lab Requisition [facility] D[facility] Lab [address] [facility], [place] [phone] Tessa Elena MD [address] [facility] 3 [place] [address] Social History Tobacco Use Types Packs/Day Years Used Date Smoking Tobacco: Former Smokeless Tobacco: Never Alcohol Use Standard Drinks/Week Comments Yes 0 (1 standard drink = 0.6 oz pur e alcohol) Sex and Gender Information Value Date Recorded Sex Assigned at Not on file 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 Gender Identity Not on file Sexual Orientation Not on file documented as of this encounter Plan of Treatment Not on file documented as of this encounter Procedures Procedure Name Priority Date/Time Associated Diagnosis Comments DERMATOPATHOLOGY Routine 08/21/2020 12:0 0 AM SNORKELLING INSTRUCTOR documented in this encounter Results * DERMATOPATHOLOGY (08/21/2020 12:00 AM SNORKELLING INSTRUCTOR) Case Report Dermatopathology Report Case: [id number] Authorizing Provider: Tessa Elena MD Collected: 08/21/2020 12:00 AM Ordering Location: [facility] Received: 08/22/2020 06:49 AM Pathologist: Parrish Collins MD Specimen: Skin, left conchal 0 3:37 PM [facility]ERMAT[facility] Final Diagnosis Specimen A. 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 0 3:37 PM [facility] Gross Description Specimen A: Received is one formalin filled container labeled with the patient's name and designated left conchal. The specimen consists of a shave measuring [id number]. Jar 0. 0 3:37 PM [facility] Microscopic Description Specimen A. SKIN, left conchal: Arising in the epidermis and extending into the dermis there are irregularly shaped aggregates of keratinocytes showing evidence of premature cornification. Additional deeper sections were obtained and reviewed. 0 3:37 PM [facility] Disclaimer An external and internal positive and negative controls are appropriate for the histochemical, immunohistochemical and immunofluorescence stain(s) in this case (if any), except where stated explicitly. The performance characteristics of the stain(s) cited in this report were developed and its performance characteristic determined by the Dermatopathology Laboratory at [facility], directed by Dr. Radha Collins. These tests need not be, and therefore are not, approved by the [place] Food and Drug Administration. The tests are used for clinical purposes. Billing Codes Specimen Charges Stain Charges 12629 1 0 3:37 PM [facility] Embedded Images 0 3:37 PM [facility] Pathology/Cytolog y TISSUE SPECIMEN FROM SKIN / Unknown 08/21/2020 08/22/2020 6:49 AM SNORKELLING INSTRUCTOR Tessa Elena MD LAB - PATHOLOGY/CYTOLOGY OR DERABLES Final Result DERMATOPATHOLOGY LABORATORY [facility] - Department of Dermatology [address], [address] [phone] documented in this encounter Visit Diagnoses Not on filedocumented in this encounter Care Teams Tube Rebuilder Relationship Specialty Start Date End Date Leonidas Doran MD [address] [place] [phone] PCP - General 10/20/11 documented as of this encounter
--- OUTSIDE RECORDS SUMMARY | 2025-05-15 04:24 | XMS_ITS | Encounter Summary ---
Author Organization [facility] Address [address] [facility] [place] [address] Care Team Providers Care Powder Core Tester Name Role Phone Leonidas Doran MD Primary Care Provider Encounter Details Date Type Department Care Team (Late st Contact Info) Description 11/19/[address] 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 - Received: 11/20/2023 01:05 PM DermPath Lab Pathologist: Freida Leach MD Specimens: A) - Skin, left faith B) - Skin, right ant scalp 1:19 PM CDT DERMATOPATHOLOGY LABORATORY Final Diagnosis Specimen A. SKIN, left faith: SQUAMOUS CELL CARCINOMA IN SITU, PRESENT AT [...] with the patient's name and designated left faith. The specimen consists of a two pieces shave biopsy measuring 5x5x1, 5x5x1 mm. Jar 0. Specimen B: Received is one formalin filled container labeled with the patient's name and designated right ant scalp. The specimen consists of a shave biopsy measuring 5x5x2 mm. Jar 0. 1:19 PM CDT DERMATOPATHOLOGY LABORATORY Microscopic Description Specimen A. SKIN, left faith: The epidermis shows parakeratosis, full thickness disorderly [...] characteristic determined by the Dermatopathology Laboratory at [facility], directed by Dr. Radha Collins. These tests need not be, and therefore are not, approved by the [place] Food and Drug Administration. The tests are used for clinical purposes. Billing Codes Specimen Charges Stain Charges 17984 40377 1 1 03/11/202 4 1:19 PM CDT DERMATOPATHOLOGY LABORATORY Embedded Images 4 1:19 PM CDT DERMATOPATHOLOGY LABORATORY Pathology/Cytology TISSUE SPECIMEN FROM SKIN / Unknown 11/19/2023 10:56 AM BOILER TESTER 11/20/2023 1:05 PM BOILER TESTER Miscellaneous samples (specimen) TISSUE SPECIMEN FROM SKIN / Unknown 11/19/2023 10:56 AM BOILER TESTER 11/20/2023 1:05 PM BOILER TESTER us Tessa Elena MD LAB - PATHOLOGY/CYTOLOGY OR DERABLES Final Result DERMATOPATHOLOGY LABORATORY [facility] - Department of Dermatology [facility] [address] [place] [address], [address] [phone] documented in this encounter Visit Diagnoses Not on filedocumented in this encounter Care Teams Powder Core Tester Relationship Specialty Start Date End Date Leonidas Doran MD [address] [place] [address] PCP - General 10/20/11 documented as of this encounter
--- OUTSIDE RECORDS SUMMARY | 2025-05-15 04:24 | XMS_ITS | Clinical Summary ---
Author Organization [facility] Address [address] [place] [address] Care Team Providers Care Washer Cutter Name Role Phone Sultana Shook MD Primary Care Provider [phone] Social History Tobacco Use Types Packs/Day Years [...] MEDICARE [facility] Care Teams Washer Cutter Relationship Specialty Start Date End Date Sultana Shook MD [address] [place] [address] PCP - General FAMILY PRACTICE 04/21/23
--- OUTSIDE RECORDS SUMMARY | 2025-05-15 04:24 | XMS_ITS | Clinical Summary ---
Author Organization [facility] Address [address] [place] [address] Care Team Providers Care Document Image Technician Name Role Phone Leonidas Doran MD Primary Care Provider [phone] Source Comments [facility],non-owned Affiliates and Associated Physician Practices is amultiple site organization consisting of ambulatory clinics and hospital sitesin [place], [place], [place] and [place]. This disclosure is being madepursuant to the Care Everywhere program and may not contain all information available regarding this patient. 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
--- OUTSIDE RECORDS SUMMARY | 2025-05-15 04:24 | XMS_ITS ---
Author Organization [facility] Main [place] Address [address] [place] [address] Care Team Providers Care Clinical Training Coordinator Name Role Phone Sultana Shook MD Primary Care Provider [phone] Active Problems Problem Noted Date Diagnosed Date [...]
--- NOTE | 2025-05-15 04:42 | ED_ITS ---
HPI - General Adult General Chief complaint: Fall Stated complaint: glf - left knee swelling/bruising/bleeding - Time Seen by Provider: 05/15/25 03:39 History of Present Illness HPI narrative: Patient 80-year-old gentleman presents emergency department with chief complaint of fall on Thursday with a laceration to his left knee and skin tear to his left arm the patient states that he had a prior knee replacement on the left knee and reports that his knee is continued ooze blood patient states that he would like to see if it can be sewn Related Data Home Medications ?Medication ?Instructions ?Recorded ?Confirmed ?Last Taken ?Type aspirin 81 mg tablet,delayed 81 mg PO HS 09/25/2006/0812/21/24 History release (Adult Aspirin Regimen) calcium 600 mg (as 1 cap PO DAILY 09/25/2006/0812/21/24 History carbonate)-vitamin D3 12.5 mcg (500 unit) capsule (Calcium with Vit D3) leuprolide acetate (6 month) 45 mg 45 mg IM [id number] 0 12/22/24 03/22/25 07/20/24 History intramuscular syringe kit (Lupron Depot) Allergies Allergy/AdvReac Type Severity Reaction Status Date / Time No Known Allergies Allergy Verified 03/22/25 13:35 Review of Systems Review of Systems: A 10 system review of systems was completed on the patient and is negative except for what is stated in the HPI. Nursing and ancillary documentation was reviewed. [facility] Past Medical History Medical History Trouble breathing Umbilical hernia Obesity (BMI 30-39.9) Constipation Cardiomyopathy Prediabetes HLD (hyperlipidemia) Hypertension FH: radiation therapy Basal cell carcinoma of skin Squamous cell skin cancer Prostate cancer Surgical History Surgical History History of lumbar surgery History of prostate surgery History of total left knee replacement History of total right knee replacement (TKR) Family History Family History Father Diabetes mellitus Malignant neoplasm of prostate Mother Diabetes mellitus Sibling Diabetes mellitus Social History Social History Smoking packs per day: 0.25 Smoking cigarettes per day: 5.0 Years smoked: 10 Smoking pack-years: 2.50 Smoking status: Former smoker Tobacco type: cigarettes Second hand tobacco smoke exposure: Yes Smoking end date: 09/14/89 Alcohol intake: never Substance use: never Substance use type: does not use Do You Feel Safe in your Home?: Yes Lack of Transportation: No Lack of Food: Never True Current Housing: I Have Housing Concerned About Future Housing: No Difficulty Paying Gas/Electric Bills: No Difficulty Paying for Meds: No Currently Unemployed: No Education: Grade School Difficulty w/ Childcare or Family Care: No Living arrangements: with family Occupation/Education: retired Gender identity (if verbalized by the patient): Male Sexual Orientation (if Verbalized by the Patient): Straight or Heterosexual Spiritual care concerns: No Agree to blood products: Yes Exam Narrative: GENERAL: Well-appearing, well-nourished, and in no acute distress. HEAD: Normocephalic, atraumatic. EYES: PERRLA and EOMI. ENT: Nares clear, no rhinorrhea or epistaxis. Mucous membranes moist. NECK: Supple. CHEST: Clear to auscultation. No respiratory distress. HEART: Regular rate and rhythm. No murmur heard. Normal peripheral pulses. ABDOMEN: Soft, nontender, nondistended, normal active bowel sounds. EXTREMITIES: Normal range of motion there is a skin tear present to the left elbow area with bruising there is a 5 cm laceration to the left knee. No edema. SKIN: Warm, dry, no rash. NEURO: No focal deficits. Alert and oriented x3. PSYCH: Normal mood and affect. Course Vital Signs Vital signs: Vital Signs Temperature 36.4 C 05/14/25 23:28 Pulse Rate 69 05/14/25 23:28 Respiratory Rate 16 05/14/25 23:28 Blood Pressure 122/83 05/14/25 23:28 Pulse Oximetry 98 05/14/25 23:28 Oxygen Delivery Room Air 05/14/25 23:28 Temperature 36.4 C 05/14/25 23:28 Pulse Rate 85 05/15/25 04:21 Respiratory Rate 16 05/15/25 04:21 Blood Pressure 145/74 H 05/15/25 04:21 Pulse Oximetry 99 05/15/25 04:21 Oxygen Delivery Room Air 05/14/25 23:28 Medical Decision Making [facility] Narrative Medical decision making narrative: Differential diagnosis includes fracture, skin tear, laceration Given the laceration is several days old at this time closure is not recommended the wound was closed with Steri-Strips and the patient will be placed on antibiotics Plain film x-rays of the elbow and knee were obtained showed no evidence of fracture Vital Signs Vital Signs: Vital Signs Temperature 36.4 C 05/14/25 23:28 Pulse Rate 69 05/14/25 23:28 Respiratory Rate 16 05/14/25 23:28 Blood Pressure 122/83 05/14/25 23:28 Pulse Oximetry 98 05/14/25 23:28 Oxygen Delivery Room Air 05/14/25 23:28 Temperature 36.4 C 05/14/25 23:28 Pulse Rate 85 05/15/25 04:21 Respiratory Rate 16 05/15/25 04:21 Blood Pressure 145/74 H 05/15/25 04:21 Pulse Oximetry 99 05/15/25 04:21 Oxygen Delivery Room Air 05/14/25 23:28 Discharge Plan Discharge Clinical Impression: Laceration of knee, left, Skin tear of left elbow without complication Patient Disposition: Home Condition: Stable Instructions: Antibiotic Form, Skin Avulsion (ED), Skin Adhesive Strips (ED) Additional Instructions: Due to the age of laceration unable to suture at Steri-Strips were placed to help pull the tissue in place The x-ray showed no evidence of fracture loosening of your prosthetic hardware Patient Language: Yi Prescriptions: New cephalexin 500 mg capsule 500 mg PO QID 7 Days Qty: 28 0RF No Action aspirin [Adult Aspirin Regimen] 81 mg tablet,delayed release (DR/EC) 81 mg PO HS calcium carbonate-vitamin D3 [Calcium 600 with Vitamin D3] 600 mg(1,500mg) - 500 unit capsule 1 cap PO DAILY triamcinolone acetonide 0.1 % cream 1 applic topical BID Qty: 80 0RF Lupron Depot (6 Month) 45 mg syringe kit 45 mg IM [id number] Patient Comments: Patient due for medication 01/17/2025 carvedilol 6.25 mg tablet 6.25 mg PO Q12H Qty: 180 2RF Rx Instructions: must administer with a meal/food loratadine 10 mg tablet 10 mg PO QAM Qty: 30 4RF omeprazole 20 mg capsule,delayed release(DR/EC) See Rx Instructions .ROUTE .COMPLEX Qty: 90 1RF Dose Instruction: TAKE 1 CAPSULE BY MOUTH DAILY Rx Instructions: TAKE 1 CAPSULE BY MOUTH DAILY lisinopril 10 mg tablet See Rx Instructions .ROUTE .COMPLEX Qty: 90 1RF Dose Instruction: TAKE 1 TABLET BY MOUTH DAILY Rx Instructions: TAKE 1 TABLET BY MOUTH DAILY albuterol sulfate [Ventolin HFA] 90 mcg/actuation HFA aerosol inhaler 2 puff inhalation QID PRN (Reason: shortness of breath or wheezing) Qty: 8.5 2RF Follow-up/Referrals: Sultana Shook MD [Primary Care Provider, Family Practice] Time of Disposition: 04:45
== END 2025-05-15 04:56 | disposition home or self-care (01) ==
PROVIDERS: Emergency Provider Emergency Medicine; PCP Family Medicine
DX: S81.012A Laceration without foreign body, left knee, initial encounter (principal); S51.012A Laceration without foreign body of left elbow, initial encounter; Z23 Encounter for immunization; I10 Essential (primary) hypertension; E78.5 Hyperlipidemia, unspecified; Z85.828 Personal history of other malignant neoplasm of skin; Z79.82 Long term (current) use of aspirin; W19.XXXA Unspecified fall, initial encounter
CPT/HCPCS: 73080; 73562; 90471; 90715; 99284